=== PATIENT | female | born 1940 | race Caucasian/White ===

== ENCOUNTER 2018-09-26 10:15 | Emergency (ER) | payer MEDICARE ==
--- NOTE | 2018-09-26 10:39 | ERPHSYRPT ---
- History of Present Illness Time Seen by Provider: 09/26/18 10:25 Source: patient, family Physician History: 78 y/o white female who is diabetic, has chf and copd and presents with soa and cough. sx present for 4 days. pt was not seen by pcp but was called in rx for z pack. pt has 2 more days. pt is not allergic to steroids but they do "make me crazy". room air oxygenation was 88%. pt uses oxygen by nc at night only.pt does not have nebulizer at home but does use advair and albuterol inhalers. Timing/Duration: day(s) (4) Activities at Onset: none Severity of Dyspnea-Max: mild Severity of Dyspnea-Current: mild Possible Cause: occasional episodes Modifying Factors: Improves With: coughing, oxygen Associated Symptoms: cough, wheezing Allergies/Adverse Reactions: No Known Drug Allergies Allergy (Verified 09/26/18 10:55) Home Medications: Albuterol Sulfate Mdi [Proair Hfa MDI] 8.5 gm IH BID 01/18/13 [History] Fenofibrate,Micronized 145 mg* [Tricor 145 MG] 145 mg PO HS 01/18/13 [History ] Metformin HCl 500 mg [Glucophage 500 MG] 500 mg PO HS 01/18/13 [History] Oxy 500 + Calcium 1 tab PO BID 01/18/13 [History] Fluticasone/Salmeterol [Advair 250-50 Diskus] 1 each IH BID 06/04/14 [History] Escitalopram Oxalate 10 mg [Lexapro 10 MG] 20 mg PO HS 10/11/14 [History] Lorazepam 1 mg [Ativan 1 MG] 1 mg PO BID 10/11/14 [History] Aspirin [Children's Aspirin] 81 mg PO HS 11/24/14 [History] Azithromycin 250 mg [Zithromax 250 MG TABLET] 250 mg PO ZPACK 09/26/18 [ History] Etodolac [Lodine] 200 mg PO BID 09/26/18 [History] Hx Tetanus, Diphtheria Vaccination/Date Given: Yes (unk) Hx Influenza Vaccination/Date Given: Yes Hx Pneumococcal Vaccination/Date Given: Yes - Review of Systems Constitutional: No Symptoms Eyes: No Symptoms Ears, Nose, & Throat: No Symptoms Respiratory: Cough, Dyspnea, Wheezing, No Stridor Cardiac: No Symptoms, No Chest Pain, No Palpitations, No Syncope Abdominal/Gastrointestinal: No Symptoms, No Abdominal Pain, No Nausea, No Vomiting, No Diarrhea Genitourinary Symptoms: No Symptoms Musculoskeletal: No Symptoms Skin: No Symptoms Neurological: No Symptoms Psychological: No Symptoms Endocrine: No Symptoms Hematologic/Lymphatic: No Symptoms Immunological/Allergic: No Symptoms All Other Systems: Reviewed and Negative - Past Medical History Pertinent Past Medical History: Yes Neurological History: No Pertinent History ENT History: No Pertinent History Cardiac History: Congestive Heart Failure, High Cholesterol, Hypertension Respiratory History: COPD, Other Endocrine Medical History: Diabetes Type I Musculoskeletal History: No Pertinent History, Osteoporosis GI Medical History: No Pertinent History History: No Pertinent History Psycho-Social History: No Pertinent History Female Reproductive Disorders: No Pertinent History Other Medical History: cpap - Past Surgical History Past Surgical History: Yes (11/08/14) Neuro Surgical History: No Pertinent History Cardiac: No Pertinent History Respiratory: No Pertinent History Gastrointestinal: No Pertinent History Genitourinary: No Pertinent History Musculoskeletal: Joint Replacement Female Surgical History: Hysterectomy Other Surgical History: BILAT KNEE REPLACEMENTSRT FOOT PLATE 2010 and 2011 - Social History Smoking Status: Never smoker Exposure to second hand smoke: No Drug Use: none Patient Lives Alone: Yes - Nursing Vital Signs Nursing Vital Signs: Initial Vital Signs Temperature 97.9 F 09/26/18 10:32 Pulse Rate 110 H 09/26/18 10:32 Respiratory Rate 22 09/26/18 10:32 Blood Pressure 158/109 09/26/18 10:32 O2 Sat by Pulse Oximetry 88 L 09/26/18 10:32 Pain Scale Pain Intensity 2 - Physical Exam General Appearance: mild distress, alert, anxiety Eye Exam: PERRL/EOMI Ears, Nose, Throat Exam: hearing grossly normal Neck Exam: normal inspection, non-tender, supple, full range of motion Respiratory Exam: respiratory distress (mild), airway intact, wheezing, No chest tenderness, No accessory muscle use, No rhonchi, No stridor Cardiovascular/Chest Exam: normal heart sounds, regular rate/rhythm Abdominal/Gastrointestinal Exam: soft, normal bowel sounds, No tenderness, No guarding, No rebound Rectal Exam: not done Extremity Exam: non-tender, normal range of motion, normal inspection Neurologic Exam: alert, oriented x 3, cooperative, sap sd analyst II-XII nml as tested Skin Exam: normal color, warm, dry Lymphatic Exam: No adenopathy SpO2 Interpretation: hypoxic Oxygen Delivery: Room Air - Course Nursing assessment & vital signs reviewed: Yes Ordered Tests: Active Orders 24 hr Category Date Time Status Pulse Oximetry (ED) STAT Care 09/26/18 10:41 Active CHEST 1 VIEW (PORTABLE) Stat Exams 09/26/18 10:41 Taken HUMERUS Stat Exams 09/26/18 11:10 Taken Peak Expiratory Flow Rate ONCE RT 09/26/18 10:41 Completed Respiratory Nebulizer STAT RT 09/26/18 10:43 Completed Respiratory Therapy Assessment DAILY RT 09/26/18 10:50 Completed Medication Summary Discontinued Medications Generic Name Dose Route Start Last Admin Trade Name Freq PRN Reason Stop Dose Admin Albuterol Sulfate 2.5 mg 09/26/18 10:41 09/26/18 10:49 Proventil 2.5 Mg/3 Ml Neb IH 09/26/18 10:42 2.5 mg STAT ONE Administration Albuterol Sulfate Confirm 09/26/18 10:47 Proventil 2.5 Mg/3 Ml Neb Administered 09/26/18 10:48 Dose 2.5 mg IH .STK-MED ONE Albuterol/Ipratropium Confirm 09/26/18 10:41 Duoneb 0.5-3 Mg/3 Ml Neb Administered 09/26/18 10:42 Dose 3 ml IH .STK-MED ONE Ceftriaxone Sodium 1,000 mg 09/26/18 10:44 09/26/18 11:02 Rocephin 1000 Mg Inj IM 09/26/18 10:45 1,000 mg STAT ONE Administration Ceftriaxone Sodium Confirm 09/26/18 10:52 Rocephin 1000 Mg Inj Administered 09/26/18 10:53 Dose 1,000 mg .ROUTE .STK-MED ONE Methylprednisolone Sodium Succinate 125 mg 09/26/18 10:41 09/26/18 10:51 Solu-Medrol 125 Mg IM 09/26/18 10:42 125 mg STAT ONE Administration Methylprednisolone Sodium Succinate Confirm 09/26/18 10:44 Solu-Medrol 125 Mg Administered 09/26/18 10:45 Dose 125 mg .ROUTE .STK-MED ONE Lab/Rad Data: Laboratory Results 09/26/18 Range/Units 11:00 Influenza Type A Ag NEGATIVE (NEGATIVE) Influenza Type B Ag NEGATIVE (NEGATIVE) RSV (PCR) NEGATIVE (Negative) - Progress Progress: improved, re-examined Air Movement: good Progress Note: 09/26/18 11:51 cxr-mild bilat bronchopneumonia with mild right basilar atelectasis 09/26/18 11:56 xray right humerus-negative for acute fx or dislocation Blood Culture(s) Obtained: No Antibiotics given: Yes Counseled pt/family regarding: diagnosis, need for follow-up, rad results - Departure Time of Disposition: 11:53 Departure Disposition: Home Clinical Impression: Lung infiltrate Condition: Stable Critical Care Time: No Referrals: BING MURPHY MD [Primary Care Provider] - Additional Instructions: drink plenty of fluids. use your albuterol inhaler every 4 hours while awake. take other medications as prescribed. return to ED if symptoms worsen. follow up with primary doctor for persistent symptoms Prescriptions: Hydrocodone Bit/Acetaminophen [Hydrocodone-Acetaminophen Soln] 10 ml PO Q6H # 120 ml Prednisone 10 mg [Deltasone 10 mg] 10 mg PO BID #10 tablet
[2018-09-26] MEDS ORDERED: solu-MEDROL 125 MG IM ONE (10:41)
[2018-09-26] MEDS ORDERED: DUONEB 0.5-3 MG/3 ml Neb IH ONE (10:41)
[2018-09-26] MEDS ORDERED: PROVENTIL 2.5 MG/3 ML NEB IH ONE ×2 (10:41→10:47)
[2018-09-26] MEDS ORDERED: Rocephin 1000 MG INJ IM ONE (10:44)
[2018-09-26] MEDS ORDERED: solu-MEDROL 125 MG ONE (10:44)
[2018-09-26] MEDS ORDERED: Rocephin 1000 MG INJ ONE (10:52)
[2018-09-26 11:23] VITALS: PULSE 88; O2SAT 93
[2018-09-26 11:49] LABS: INFLUENZA A NEGATIVE (NEGATIVE); INFLUENZA B NEGATIVE (NEGATIVE); RESPIRATORY SYNCTIAL VIRUS NEGATIVE (Negative)
[2018-09-26] MEDS ORDERED: HYDROCODONE-ACETAMIN 2.5-108/5 ML SOLUTION PO STA (12:00)
[2018-09-26] MEDS ORDERED: HYDROCODONE-ACETAMIN 2.5-108/5 ML SOLUTION ONE (12:11)
[2018-09-26 12:16] VITALS: BP 146/85
--- NOTE | 2018-09-26 18:16 | XRAY ---
Indication: Fever, cough, short of breath, and congestion. History COPD. Comparison: November 24, 2014. Portable chest again demonstrates bibasilar discoid atelectasis/scarring increased on the right with stable chronic right hemidiaphragm elevation and medial right base calcified granuloma. Remaining lungs unremarkable. Heart and mediastinal structures within normal limits. Bony thorax intact again with mild osteopenia and degenerative changes. Impression: Nonacute chest with chronic features. Comment: Preliminary interpretation was made by [facility]. No critical discrepancy.
--- NOTE | 2018-09-26 18:18 | XRAY ---
Indication: Pain. Comparison: None 2 views of the right humerus demonstrates mild/moderate shoulder degenerative arthropathy. No other bony, articular, or soft tissue abnormalities.
== END 2018-09-26 12:28 | disposition home or self-care (01) ==
LOC: ED 10:15
DX: R91.8 Other nonspecific abnormal finding of lung field (principal); M79.621 Pain in right upper arm; R09.02 Hypoxemia; J44.9 Chronic obstructive pulmonary disease, unspecified; E10.9 Type 1 diabetes mellitus without complications; Z79.84 Long term (current) use of oral hypoglycemic drugs; I10 Essential (primary) hypertension; Z79.899 Other long term (current) drug therapy
CPT/HCPCS: 71045; 73060; 87631; 94150; 94640; 96372; 99284; J0696; J2930; J7609; A9270-GY

== ENCOUNTER 2019-02-03 13:56 | Observation (INO) | payer MEDICARE ==
[2019-02-03] MEDS ORDERED: Sodium Chloride 0.9% 1000 ML 1,000 ML IV STA (14:29)
[2019-02-03] MEDS ORDERED: Zofran 4 MG/2 ML VIAL IV ONE (14:29)
[2019-02-03] MEDS ORDERED: MORPHINE SULFATE 2 MG INJ IV ONE ×2 (14:29→17:54)
[2019-02-03] MEDS ORDERED: DUONEB 0.5-3 MG/3 ml Neb IH ONE ×2 (14:34→15:09)
--- NOTE | 2019-02-03 14:34 | ERPHSYRPT ---
- History of Present Illness Time Seen by Provider: 02/03/19 14:32 Historian: patient Patient Subjective Stated Complaint: Pt states "Last night I was extremely gassy and today I tried to eat and had diarrhea." Triage Nursing Assessment: Pt presented through the front door alert and oriented X 3, skin pwd. Pt ambulates with a slow gait holding onto the bed for support. Pt in no apparent respiratory distress. PT holding lower abdomen. Physician History: mild to mod off and on lower abdominal cramps, nonrad, no NV, +diarrhea but no blood, no injury Allergies/Adverse Reactions: No Known Drug Allergies Allergy (Verified 09/26/18 10:55) Home Medications: Albuterol Sulfate Mdi [Proair Hfa MDI] 8.5 gm IH BID 01/18/13 [History] Fenofibrate,Micronized 145 mg* [Tricor 145 MG] 145 mg PO HS 01/18/13 [History ] Metformin HCl 500 mg [Glucophage 500 MG] 500 mg PO HS 01/18/13 [History] Oxy 500 + Calcium 1 tab PO BID 01/18/13 [History] Fluticasone/Salmeterol [Advair 250-50 Diskus] 1 each IH BID 06/04/14 [History] Escitalopram Oxalate 10 mg [Lexapro 10 MG] 20 mg PO HS 10/11/14 [History] Lorazepam 1 mg [Ativan 1 MG] 1 mg PO BID 10/11/14 [History] Aspirin [Children's Aspirin] 81 mg PO HS 11/24/14 [History] Etodolac [Lodine] 200 mg PO BID 09/26/18 [History] Hx Tetanus, Diphtheria Vaccination/Date Given: Yes Hx Influenza Vaccination/Date Given: Yes Hx Pneumococcal Vaccination/Date Given: No Immunizations Up to Date: Yes - Review of Systems Constitutional: No Fever Eyes: No Eye Redness Ears, Nose, & Throat: No Mouth Pain Respiratory: No Dyspnea Cardiac: No Chest Pain Abdominal/Gastrointestinal: Abdominal Pain, Diarrhea, No Vomiting Genitourinary Symptoms: No Dysuria Musculoskeletal: No Back Pain Skin: No Rash Neurological: No Dizziness - Past Medical History Pertinent Past Medical History: Yes Neurological History: No Pertinent History ENT History: No Pertinent History Cardiac History: Congestive Heart Failure, High Cholesterol, Hypertension Respiratory History: COPD, Other Endocrine Medical History: Diabetes Type I Musculoskeletal History: No Pertinent History, Osteoporosis GI Medical History: No Pertinent History History: No Pertinent History Psycho-Social History: No Pertinent History Female Reproductive Disorders: No Pertinent History Other Medical History: cpap - Past Surgical History Past Surgical History: Yes (11/08/14) Neuro Surgical History: No Pertinent History Cardiac: No Pertinent History Respiratory: No Pertinent History Gastrointestinal: No Pertinent History Genitourinary: No Pertinent History Musculoskeletal: Joint Replacement Female Surgical History: Hysterectomy Other Surgical History: BILAT KNEE REPLACEMENTSRT FOOT PLATE 2010 and 2011 - Social History Smoking Status: Never smoker Exposure to second hand smoke: Yes Drug Use: none Patient Lives Alone: Yes - Female History Hx Now: No - Nursing Vital Signs Nursing Vital Signs: Initial Vital Signs Temperature 99.6 F 02/03/19 14:12 Pulse Rate 64 02/03/19 14:12 Respiratory Rate 18 02/03/19 14:12 Blood Pressure 188/70 02/03/19 14:12 O2 Sat by Pulse Oximetry 92 L 02/03/19 14:12 Pain Scale Pain Intensity 0 - Physical Exam General Appearance: no apparent distress Eye Exam: eyes nml inspection Ears, Nose, Throat Exam: moist mucous membranes Neck Exam: normal inspection Respiratory Exam: normal breath sounds Cardiovascular Exam: regular rate/rhythm Gastrointestinal/Abdomen Exam: soft, tenderness, No rebound Back Exam: No CVA tenderness Extremity Exam: normal range of motion Neurologic Exam: alert, oriented x 3 Skin Exam: normal color SpO2 Interpretation: borderline oxygenation SpO2: 92 - Course Nursing assessment & vital signs reviewed: Yes EKG Interpreted by Me: Sinus Rhythm, Other (no stemi) - Radiology Exams Chest X-ray Interpretation: Discussed w/ radiologist, No Pneumonia - CT Exams Abdomen/Pelvis CT Interpretation: Discussed w/radiologist, Other (ileus, no obstruction) Ordered Tests: Active Orders 24 hr Category Date Time Status EKG-ER Only STAT Care 02/03/19 14:29 Active IV Insertion STAT Care 02/03/19 14:29 Active ABDOMEN AND PELVIS W/0 CONTRAS [CT] Stat Exams 02/03/19 14:30 Completed CHEST 1 VIEW (PORTABLE) Stat Exams 02/03/19 14:35 Completed CBC W DIFF Stat Lab 02/03/19 14:45 Completed CMP Stat Lab 02/03/19 14:45 Completed CULTURE,URINE Stat Lab 02/03/19 16:50 Received LIPASE Stat Lab 02/03/19 14:45 Completed Lactic Acid Stat Lab 02/03/19 14:58 Completed TROPONIN Q3H Lab 02/03/19 14:45 Completed TROPONIN Q3H Lab 02/03/19 17:30 Ordered TROPONIN Q3H Lab 02/03/19 20:30 Ordered TROPONIN Q3H Lab 02/03/19 23:30 Ordered TROPONIN Q3H Lab 02/04/19 02:30 Ordered UA W/RFX UR CULTURE Stat Lab 02/03/19 16:50 Completed Respiratory Therapy Assessment DAILY RT 02/04/19 07:00 Active Medication Summary Discontinued Medications Generic Name Dose Route Start Last Admin Trade Name Freq PRN Reason Stop Dose Admin Albuterol/Ipratropium 3 ml 02/03/19 14:34 02/03/19 15:10 Duoneb 0.5-3 Mg/3 Ml Neb IH 02/03/19 14:35 3 ml STAT ONE Administration Albuterol/Ipratropium Confirm 02/03/19 15:09 Duoneb 0.5-3 Mg/3 Ml Neb Administered 02/03/19 15:10 Dose 3 ml IH .STK-MED ONE Sodium Chloride 1,000 mls @ 999 mls/hr 02/03/19 14:29 02/03/19 17:17 Sodium Chloride 0.9% 1000 Ml IV 02/03/19 15:29 Infused .Q1H1M STA Infusion Sodium Chloride Confirm 02/03/19 14:51 Sodium Chloride 0.9% 1000 Ml Administered 02/03/19 14:52 Dose 1,000 mls @ ud .ROUTE .STK-MED ONE Morphine Sulfate 2 mg 02/03/19 14:29 02/03/19 14:55 Morphine Sulfate 2 Mg Inj IV 02/03/19 14:30 2 mg STAT ONE Administration Morphine Sulfate Confirm 02/03/19 14:51 Morphine Sulfate 2 Mg Inj Administered 02/03/19 14:52 Dose 2 mg .ROUTE .STK-MED ONE Ondansetron HCl 4 mg 02/03/19 14:29 02/03/19 14:56 Zofran 4 Mg/2 Ml Vial IV 02/03/19 14:30 4 mg STAT ONE Administration Ondansetron HCl Confirm 02/03/19 14:50 Zofran 4 Mg/2 Ml Vial Administered 02/03/19 14:51 Dose 4 mg .ROUTE .STK-MED ONE Lab/Rad Data: Laboratory Result Diagrams 02/03/19 14:45 02/03/19 14:45 Laboratory Results 02/03/19 02/03/19 02/03/19 Range/Units 16:50 14:58 14:45 WBC (4.0-10.5) K/mm3 RBC (4.1-5.4) M/mm3 Hgb (12.0-16.0) gm/dl Hct (35-47) % MCV (78-100) fl MCH (26-32) pg MCHC (32-36) g/dl RDW (11.5-14.0) % Plt Count (150-450) K/mm3 MPV (6-9.5) fl Gran % (36.0-66.0) % Eos # (Auto) (0-0.5) Absolute Lymphs (auto) (1.0-4.6) Absolute Monos (auto) (0.0-1.3) Lymphocytes % (24.0-44.0) % Monocytes % (0.0-12.0) % Eosinophils % (0.00-5.0) % Basophils % (0.0-0.4) % Absolute Granulocytes (1.4-6.9) Basophils # (0-0.4) Sodium (137-145) mmol/L Potassium (3.5-5.1) mmol/L Chloride (98-107) mmol/L Carbon Dioxide (22-30) mmol/L Anion Gap (5-15) MEQ/L BUN (7-17) mg/dL Creatinine (0.52-1.04) mg/dL Estimated GFR ML/MIN Glucose (74-106) mg/dL Lactic Acid 1.4 (0.4-2.0) Calcium (8.4-10.2) mg/dL Total Bilirubin (0.2-1.3) mg/dL AST (14-36) U/L ALT (0-35) U/L Alkaline Phosphatase (38-126) U/L Troponin I < 0.012 (0.000-0.034) ng/mL Serum Total Protein (6.3-8.2) g/dL Albumin (3.5-5.0) g/dL Lipase (23-300) U/L Urine Color YELLOW (YELLOW) Urine Appearance CLEAR (CLEAR) Urine pH 5.0 (5-6) Ur Specific [place] 1.017 (1.005-1.025) Urine Protein NEGATIVE (Negative) Urine Ketones NEGATIVE (NEGATIVE) Urine Blood NEGATIVE (0-5) Abhi/ul Urine Nitrite NEGATIVE (NEGATIVE) Urine Bilirubin NEGATIVE (NEGATIVE) Urine Urobilinogen 2 (0-1) mg/dL Ur Leukocyte Esterase NEGATIVE (NEGATIVE) Urine WBC (Auto) NONE (0-5) /HPF Urine RBC (Auto) NONE (0-2) /HPF U Epithel Cells (Auto) NONE (FEW) /HPF Urine Bacteria (Auto) NONE (NEGATIVE) /HPF Urine Mucus (Auto) SLIGHT (NEGATIVE) /HPF Urine Culture Reflexed ORDERED SEPARATELY (NO) Urine Glucose NEGATIVE (NEGATIVE) mg/dL 02/03/19 02/03/19 Range/Units 14:45 14:45 WBC 8.2 (4.0-10.5) K/mm3 RBC 4.74 (4.1-5.4) M/mm3 Hgb 14.0 (12.0-16.0) gm/dl Hct 44.5 (35-47) % MCV 93.9 (78-100) fl MCH 29.5 (26-32) pg MCHC 31.5 L (32-36) g/dl RDW 14.2 H (11.5-14.0) % Plt Count 280 (150-450) K/mm3 MPV 10.6 H (6-9.5) fl Gran % 75.4 H (36.0-66.0) % Eos # (Auto) 0.29 (0-0.5) Absolute Lymphs (auto) 0.98 L (1.0-4.6) Absolute Monos (auto) 0.69 (0.0-1.3) Lymphocytes % 12.0 L (24.0-44.0) % Monocytes % 8.4 (0.0-12.0) % Eosinophils % 3.5 (0.00-5.0) % Basophils % 0.7 (0.0-0.4) % Absolute Granulocytes 6.15 (1.4-6.9) Basophils # 0.06 (0-0.4) Sodium 141 (137-145) mmol/L Potassium 3.8 (3.5-5.1) mmol/L Chloride 104 (98-107) mmol/L Carbon Dioxide 28 (22-30) mmol/L Anion Gap 13.4 (5-15) MEQ/L BUN 15 (7-17) mg/dL Creatinine 0.82 (0.52-1.04) mg/dL Estimated GFR > 60.0 ML/MIN Glucose 113 H (74-106) mg/dL Lactic Acid (0.4-2.0) Calcium 9.8 (8.4-10.2) mg/dL Total Bilirubin 0.60 (0.2-1.3) mg/dL AST 28 (14-36) U/L ALT 13 (0-35) U/L Alkaline Phosphatase 74 (38-126) U/L Troponin I (0.000-0.034) ng/mL Serum Total Protein 7.9 (6.3-8.2) g/dL Albumin 4.2 (3.5-5.0) g/dL Lipase 79 (23-300) U/L Urine Color (YELLOW) Urine Appearance (CLEAR) Urine pH (5-6) Ur Specific [place] (1.005-1.025) Urine Protein (Negative) Urine Ketones (NEGATIVE) Urine Blood (0-5) Abhi/ul Urine Nitrite (NEGATIVE) Urine Bilirubin (NEGATIVE) Urine Urobilinogen (0-1) mg/dL Ur Leukocyte Esterase (NEGATIVE) Urine WBC (Auto) (0-5) /HPF Urine RBC (Auto) (0-2) /HPF U Epithel Cells (Auto) (FEW) /HPF Urine Bacteria (Auto) (NEGATIVE) /HPF Urine Mucus (Auto) (NEGATIVE) /HPF Urine Culture Reflexed (NO) Urine Glucose (NEGATIVE) mg/dL - Progress Progress: improved Progress Note: 02/03/19 17:44 admit d/w Dr Murphy - Departure Departure Disposition: Observation Clinical Impression: Ileus Condition: Stable Critical Care Time: No Referrals: BING MURPHY MD [Primary Care Provider] -
[2019-02-03] MEDS ORDERED: Zofran 4 MG/2 ML VIAL ONE (14:50)
[2019-02-03] MEDS ORDERED: MORPHINE SULFATE 2 MG INJ ONE ×2 (14:51→17:58)
[2019-02-03] MEDS ORDERED: Sodium Chloride 0.9% 1000 ML 1,000 ML ONE (14:51)
[2019-02-03 15:04] LABS: ALBUMIN 4.2 g/dL (3.5-5.0); ALKALINE PHOSPHATASE 74 U/L (38-126); ANION GAP 13.4 MEQ/L (5-15); BASOPHIL % 0.7 % (0.0-0.4); BLOOD UREA NITROGEN 15 mg/dL (7-17); Basophil (Absolute #) 0.06 (0-0.4); CHLORIDE 104 mmol/L (98-107); Calcium 9.8 mg/dL (8.4-10.2); Carbon Dioxide 28 mmol/L (22-30); Creatinine 1 0.82 mg/dL (0.52-1.04); Eosinophil % 3.5 % (0.00-5.0); Eosinophil (Absolute #) 0.29 (0-0.5); Glucose 113 mg/dL (74-106); Granulocyte Absolute (ANC) 6.15 (1.4-6.9); Granulocytes % 75.4 % (36.0-66.0); Hematocrit 44.5 % (35-47); LIPASE 79 U/L (23-300); Lymphocyte (Absolute #) 0.98 (1.0-4.6); Mean Cell Volume 93.9 fl (78-100); Mean Corpuscular Hemoglobin 29.5 pg (26-32); Mean Corpuscular Hgb Concent. 31.5 g/dl (32-36); Mean Platelet Volume 10.6 fl (6-9.5); Monocyte (Absolute #) 0.69 (0.0-1.3); Monocytes % 8.4 % (0.0-12.0); Platelet Count 280 K/mm3 (150-450); Potassium 3.8 mmol/L (3.5-5.1); Red Blood Count 4.74 M/mm3 (4.1-5.4); Red Cell Distribution Width 14.2 % (11.5-14.0); SGOT/AST 28 U/L (14-36); SGPT/ALT 13 U/L (0-35); SODIUM 141 mmol/L (137-145); Total Protein 7.9 g/dL (6.3-8.2); White Blood Count 8.2 K/mm3 (4.0-10.5)
--- NOTE | 2019-02-03 15:15 | XRAY ---
Indication: Low oxygenation. Comparison: September 26, 2018. Portable chest again demonstrates bilateral mid to lower lung discoid atelectasis/scarring, right base calcified granulomas, and right hemidiaphragm elevation. Heart is borderline enlarged. Bony thorax intact again with mild osteopenia and degenerative changes. Impression: Nonacute chest with chronic features.
--- NOTE | 2019-02-03 15:18 | XRAY ---
Indication: Lower abdomen/pelvic pain. Multiple contiguous axial images obtained through the abdomen and pelvis without contrast as ordered. Comparison: None Lung bases demonstrates subsegmental atelectasis/scarring, right greater than left. Also right infrahilar and right base calcified granulomas. Heart is borderline enlarged. Small hiatal hernia. Noncontrasted stomach and bowel loops appear nonobstructed. Appendix not seen. Mild air distended colon throughout including rectum. Scattered sigmoid diverticulosis. No free fluid/air. Porcelain gallbladder. Nonobstructing punctate left lower renal calculus. Hepatic/splenic calcified granulomas. Remaining liver, pancreas, spleen, adrenal glands, kidneys, ureters, and bladder appear unremarkable for noncontrast exam. Mild aortoiliac calcifications without AAA. Osseous structures intact with mild degenerative throughout the spine, greatest lower lumbar spine. Moderate right hip degenerative arthropathy. No ventral or inguinal hernias. Impression: 1. Mild diffuse air distended colon without obstruction or fecal stasis. Sigmoid diverticulosis. 2. Porcelain gallbladder. 3. Nonobstructing left renal micro-calculus, small hiatal hernia, and evidence for old granulomatous disease. CT DI 28.13
[2019-02-03 17:14] LABS: Appearance CLEAR (CLEAR); Bilirubin NEGATIVE (NEGATIVE); Blood NEGATIVE Ery/ul (0-5); Glucose NEGATIVE (NEGATIVE); Ketones NEGATIVE (NEGATIVE); Leukocyte Esterase NEGATIVE (NEGATIVE); Mucus SLIGHT /HPF (NEGATIVE); Nitrite NEGATIVE (NEGATIVE); Protein,Urine Dip NEGATIVE (Negative); Specific Gravity 1.017 (1.005-1.025); Urobilinogen 2 mg/dL (0-1)
[2019-02-03] MEDS ORDERED: TYLENOL 325 MG PO PRN (18:18)
[2019-02-03] MEDS ORDERED: PROVENTIL 2.5 MG/3 ML NEB IH PRN (18:18)
[2019-02-03] MEDS: Sodium Chloride 0.9% 1000 ML 1,000 ML IV SCH (20:06)
[2019-02-03] MEDS ORDERED: Tricor 145 MG ONE (20:21)
[2019-02-03] MEDS: Advair Hfa 115/21 Common canister IH SCH (21:44)
[2019-02-03] MEDS: PROVENTIL COMMON CANISTER IH SCH (21:44)
[2019-02-03] MEDS ORDERED: BABY ASPIRIN 81 MG CHEW PO SCH (22:00)
[2019-02-03] MEDS ORDERED: Lexapro 10 MG PO SCH (22:00)
[2019-02-03] MEDS ORDERED: Ativan 1 MG PO SCH (22:00)
[2019-02-03] MEDS ORDERED: Tricor 145 MG PO SCH (22:00)
[2019-02-04] MEDS: Advair Hfa 115/21 Common canister IH SCH (05:39)
[2019-02-04] MEDS: PROVENTIL COMMON CANISTER IH SCH (05:40)
[2019-02-04] MEDS: Sodium Chloride 0.9% 1000 ML 1,000 ML IV SCH (05:59)
[2019-02-04 06:54] LABS: ALBUMIN 3.7 g/dL (3.5-5.0); ALKALINE PHOSPHATASE 53 U/L (38-126); ANION GAP 12.7 MEQ/L (5-15); BLOOD UREA NITROGEN 16 mg/dL (7-17); CHLORIDE 106 mmol/L (98-107); Calcium 9.1 mg/dL (8.4-10.2); Carbon Dioxide 27 mmol/L (22-30); Glucose 121 mg/dL (74-106); SGOT/AST 25 U/L (14-36); SGPT/ALT 11 U/L (0-35); SODIUM 142 mmol/L (137-145)
[2019-02-04 06:57] LABS: BASOPHIL % 0.5 % (0.0-0.4); Basophil (Absolute #) 0.05 (0-0.4); Eosinophil % 1.4 % (0.00-5.0); Eosinophil (Absolute #) 0.14 (0-0.5); Granulocyte Absolute (ANC) 8.33 (1.4-6.9); Granulocytes % 81.2 % (36.0-66.0); Hematocrit 41.9 % (35-47); Lymphocyte (Absolute #) 1.04 (1.0-4.6); Lymphocytes % 10.1 % (24.0-44.0); Mean Cell Volume 96.3 fl (78-100); Mean Corpuscular Hemoglobin 29.9 pg (26-32); Mean Platelet Volume 10.8 fl (6-9.5); Monocytes % 6.8 % (0.0-12.0); Platelet Count 252 K/mm3 (150-450); Red Blood Count 4.35 M/mm3 (4.1-5.4); Red Cell Distribution Width 14.1 % (11.5-14.0); White Blood Count 10.3 K/mm3 (4.0-10.5)
[2019-02-04] MEDS ORDERED: Glucophage 500 MG PO SCH (08:00)
[2019-02-04] MEDS ORDERED: MEDICATION INTERVENTION PO SCH (08:00)
[2019-02-04] MEDS ORDERED: Tricor 145 MG PO SCH (10:00)
[2019-02-04] MEDS ORDERED: ETODOLAC 200 MG PO SCH (10:00)
[2019-02-04] MEDS ORDERED: ALBUTEROL SULFATE MDI IH SCH (10:00)
[2019-02-04] MEDS ORDERED: OXY PO SCH (10:00)
[2019-02-04] MEDS ORDERED: CALCIUM PO SCH (10:00)
[2019-02-04] MEDS ORDERED: Calcium 500MG W/Vit D Tablet PO SCH (10:00)
[2019-02-04] MEDS ORDERED: PROVENTIL COMMON CANISTER IH SCH (11:00)
[2019-02-04 12:14] VITALS: BP 136/64; PULSE 69; O2SAT 93
--- NOTE | 2019-02-04 12:38 | PCM.SSS ---
History of Present Illness - Chief Complaint Chief Complaint: abdominal pain for 1 day History of Present Illness: is a 78 year old female.Pt states "Last night I was extremely gassy and today I tried to eat and had an abdominal pain - Review of Systems Constitutional: No Fever, No Chills Eyes: No Symptoms Ears, Nose, & Throat: No Symptoms Respiratory: No Cough, No Short Of Breath Cardiac: No Chest Pain, No Edema, No Syncope Abdominal/Gastrointestinal: No Abdominal Pain, No Nausea, No Vomiting, No Diarrhea Genitourinary Symptoms: No Dysuria Musculoskeletal: No Back Pain, No Neck Pain Skin: No Rash Neurological: No Dizziness, No Focal Weakness, No Sensory Changes Psychological: No Symptoms Endocrine: No Symptoms Hematologic/Lymphatic: No Symptoms Immunological/Allergic: No Symptoms Medications & Allergies Home Medications: Home Medication List Albuterol Sulfate Mdi [Proair Hfa MDI] 8.5 gm IH BID 01/18/13 [History Confirmed 02/03/19] Fenofibrate,Micronized 145 mg* [Tricor 145 MG] 145 mg PO DAILY 01/18/13 [ History Confirmed 02/04/19] Metformin HCl 500 mg [Glucophage 500 MG] 500 mg PO DAILY 01/18/13 [ History Confirmed 02/03/19] Oxy 500 + Calcium 1 tab PO BID 01/18/13 [History Confirmed 02/03/19] Fluticasone/Salmeterol [Advair 250-50 Diskus] 1 each IH BID 06/04/14 [History Confirmed 02/03/19] Escitalopram Oxalate 10 mg [Lexapro 10 MG] 20 mg PO HS 10/11/14 [History Confirmed 02/03/19] Lorazepam 1 mg [Ativan 1 MG] 1 mg PO HS 10/11/14 [History Confirmed ] Aspirin [Children's Aspirin] 81 mg PO HS 11/24/14 [History Confirmed 02/03/19] Etodolac [Lodine] 200 mg PO DAILY 09/26/18 [History Confirmed 02/03/19] Albuterol Common Canister [Proventil Common Canister] 2 puff IH QID [History Confirmed 02/03/19] Allergies/Adverse Reactions: Allergies Allergy/AdvReac Type Severity Reaction Status Date / Time No Known Drug Allergies Allergy Verified 09/26/18 10:55 - Past Medical History Past Medical History: Yes Neurological History: No Pertinent History ENT History: Cataracts Cardiac History: Congestive Heart Failure, High Cholesterol, Hypertension Respiratory History: COPD, Pneumonia, Sleep Apnea, Other Endocrine Medical History: Diabetes Type I Musculoskelatal History: No Pertinent History, Osteoporosis GI Medical History: No Pertinent History History: No Pertinent History Pyscho-Social History: Anxiety, Depression Reproductive Disorders: No Pertinent History Comment: cpap - Female History Are you now?: No - Past Surgical History Past Surgical History: Yes (11/08/14) Neuro Surgical History: No Pertinent History Cardiac History: No Pertinent History Respiratory Surgery: No Pertinent History GI Surgical History: No Pertinent History Genitourinary Surgical Hx: No Pertinent History Musculskeletal Surgical Hx: Joint Replacement Female Surgical History: Hysterectomy Other Surgical History: BILAT KNEE REPLACEMENTSRT FOOT PLATE 2010 and 2011 - Social History Smoking Status: Never smoker Exposure to second hand smoke: No Alcohol: None Drug Use: none - Physical Exam Vital Signs: Vital Signs - 24 hr Temp Pulse Resp BP Pulse Ox 02/04/19 12:00 97.4 F 69 20 136/64 93 L 02/04/19 11:32 70 18 96 02/04/19 07:51 97 F 65 18 130/90 02/04/19 05:41 63 18 97 02/04/19 04:00 97.5 F 95 H 18 135/65 95 02/04/19 00:00 98.0 F 92 H 20 119/61 91 L 02/03/19 21:45 91 L 02/03/19 21:37 76 18 91 L 02/03/19 20:00 98.4 F 79 18 119/64 91 L 02/03/19 18:38 98.4 F 79 18 119/64 91 L 02/03/19 18:06 76 16 150/80 95 02/03/19 17:45 92 L 02/03/19 17:42 74 16 158/84 98 02/03/19 15:31 74 18 90 L 02/03/19 15:03 99.4 F 75 18 168/88 89 L 02/03/19 14:12 99.6 F 64 18 188/70 92 L Oxygen-Last 24 hours O2 Percentage 2 Liters = 28% Oxygen Flowrate (L/min)-RT 2 General Appearance: no apparent distress, alert Neurologic Exam: alert, oriented x 3, cooperative, normal mood/affect, nml cerebellar function, nml station & gait, sensation nml, No motor deficits Eye Exam: PERRL/EOMI, eyes nml inspection Ears, Nose, Throat Exam: normal ENT inspection, TMs normal, pharynx normal, moist mucous membranes Neck Exam: normal inspection, non-tender, supple, full range of motion Respiratory Exam: normal breath sounds, lungs clear, No respiratory distress Cardiovascular Exam: regular rate/rhythm, normal heart sounds, normal peripheral pulses Gastrointestinal/Abdomen Exam: soft, normal bowel sounds, No tenderness, No mass Back Exam: normal inspection, normal range of motion, No CVA tenderness, No vertebral tenderness Extremity Exam: normal inspection, normal range of motion, pelvis stable Skin Exam: normal color, warm, dry, No rash Lymphatic Exam: No adenopathy Results - Labs Lab/Micro Results: Lab Results-Last 24 Hours 02/03/19 02/03/19 02/03/19 Range/Units 14:45 14:45 14:45 WBC 8.2 (4.0-10.5) K/mm3 RBC 4.74 (4.1-5.4) M/mm3 Hgb 14.0 (12.0-16.0) gm/dl Hct 44.5 (35-47) % MCV 93.9 (78-100) fl MCH 29.5 (26-32) pg MCHC 31.5 L (32-36) g/dl RDW 14.2 H (11.5-14.0) % Plt Count 280 (150-450) K/mm3 MPV 10.6 H (6-9.5) fl Gran % 75.4 H (36.0-66.0) % Eos # (Auto) 0.29 (0-0.5) Absolute Lymphs (auto) 0.98 L (1.0-4.6) Absolute Monos (auto) 0.69 (0.0-1.3) Lymphocytes % 12.0 L (24.0-44.0) % Monocytes % 8.4 (0.0-12.0) % Eosinophils % 3.5 (0.00-5.0) % Basophils % 0.7 (0.0-0.4) % Absolute Granulocytes 6.15 (1.4-6.9) Basophils # 0.06 (0-0.4) Sodium 141 (137-145) mmol/L Potassium 3.8 (3.5-5.1) mmol/L Chloride 104 (98-107) mmol/L Carbon Dioxide 28 (22-30) mmol/L Anion Gap 13.4 (5-15) MEQ/L BUN 15 (7-17) mg/dL Creatinine 0.82 (0.52-1.04) mg/dL Estimated GFR > 60.0 ML/MIN Glucose 113 H (74-106) mg/dL Lactic Acid (0.4-2.0) Calcium 9.8 (8.4-10.2) mg/dL Total Bilirubin 0.60 (0.2-1.3) mg/dL AST 28 (14-36) U/L ALT 13 (0-35) U/L Alkaline Phosphatase 74 (38-126) U/L Troponin I < 0.012 (0.000-0.034) ng/mL Serum Total Protein 7.9 (6.3-8.2) g/dL Albumin 4.2 (3.5-5.0) g/dL Lipase 79 (23-300) U/L Urine Color (YELLOW) Urine Appearance (CLEAR) Urine pH (5-6) Ur Specific [place] (1.005-1.025) Urine Protein (Negative) Urine Ketones (NEGATIVE) Urine Blood (0-5) Abhi/ul Urine Nitrite (NEGATIVE) Urine Bilirubin (NEGATIVE) Urine Urobilinogen (0-1) mg/dL Ur Leukocyte Esterase (NEGATIVE) Urine WBC (Auto) (0-5) /HPF Urine RBC (Auto) (0-2) /HPF U Epithel Cells (Auto) (FEW) /HPF Urine Bacteria (Auto) (NEGATIVE) /HPF Urine Mucus (Auto) (NEGATIVE) /HPF Urine Culture Reflexed (NO) Urine Glucose (NEGATIVE) mg/dL 02/03/19 02/03/19 02/04/19 Range/Units 14:58 16:50 03:26 WBC (4.0-10.5) K/mm3 RBC (4.1-5.4) M/mm3 Hgb (12.0-16.0) gm/dl Hct (35-47) % MCV (78-100) fl MCH (26-32) pg MCHC (32-36) g/dl RDW (11.5-14.0) % Plt Count (150-450) K/mm3 MPV (6-9.5) fl Gran % (36.0-66.0) % Eos # (Auto) (0-0.5) Absolute Lymphs (auto) (1.0-4.6) Absolute Monos (auto) (0.0-1.3) Lymphocytes % (24.0-44.0) % Monocytes % (0.0-12.0) % Eosinophils % (0.00-5.0) % Basophils % (0.0-0.4) % Absolute Granulocytes (1.4-6.9) Basophils # (0-0.4) Sodium (137-145) mmol/L Potassium (3.5-5.1) mmol/L Chloride (98-107) mmol/L Carbon Dioxide (22-30) mmol/L Anion Gap (5-15) MEQ/L BUN (7-17) mg/dL Creatinine (0.52-1.04) mg/dL Estimated GFR ML/MIN Glucose (74-106) mg/dL Lactic Acid 1.4 (0.4-2.0) Calcium (8.4-10.2) mg/dL Total Bilirubin (0.2-1.3) mg/dL AST (14-36) U/L ALT (0-35) U/L Alkaline Phosphatase (38-126) U/L Troponin I 0.015 (0.000-0.034) ng/mL Serum Total Protein (6.3-8.2) g/dL Albumin (3.5-5.0) g/dL Lipase (23-300) U/L Urine Color YELLOW (YELLOW) Urine Appearance CLEAR (CLEAR) Urine pH 5.0 (5-6) Ur Specific [place] 1.017 (1.005-1.025) Urine Protein NEGATIVE (Negative) Urine Ketones NEGATIVE (NEGATIVE) Urine Blood NEGATIVE (0-5) Abhi/ul Urine Nitrite NEGATIVE (NEGATIVE) Urine Bilirubin NEGATIVE (NEGATIVE) Urine Urobilinogen 2 (0-1) mg/dL Ur Leukocyte Esterase NEGATIVE (NEGATIVE) Urine WBC (Auto) NONE (0-5) /HPF Urine RBC (Auto) NONE (0-2) /HPF U Epithel Cells (Auto) NONE (FEW) /HPF Urine Bacteria (Auto) NONE (NEGATIVE) /HPF Urine Mucus (Auto) SLIGHT (NEGATIVE) /HPF Urine Culture Reflexed ORDERED SEPARATELY (NO) Urine Glucose NEGATIVE (NEGATIVE) mg/dL 02/04/19 02/04/19 Range/Units 05:45 05:45 WBC 10.3 (4.0-10.5) K/mm3 RBC 4.35 (4.1-5.4) M/mm3 Hgb 13.0 (12.0-16.0) gm/dl Hct 41.9 (35-47) % MCV 96.3 (78-100) fl MCH 29.9 (26-32) pg MCHC 31.0 L (32-36) g/dl RDW 14.1 H (11.5-14.0) % Plt Count 252 (150-450) K/mm3 MPV 10.8 H (6-9.5) fl Gran % 81.2 H (36.0-66.0) % Eos # (Auto) 0.14 (0-0.5) Absolute Lymphs (auto) 1.04 (1.0-4.6) Absolute Monos (auto) 0.70 (0.0-1.3) Lymphocytes % 10.1 L (24.0-44.0) % Monocytes % 6.8 (0.0-12.0) % Eosinophils % 1.4 (0.00-5.0) % Basophils % 0.5 (0.0-0.4) % Absolute Granulocytes 8.33 H (1.4-6.9) Basophils # 0.05 (0-0.4) Sodium 142 (137-145) mmol/L Potassium 4.0 (3.5-5.1) mmol/L Chloride 106 (98-107) mmol/L Carbon Dioxide 27 (22-30) mmol/L Anion Gap 12.7 (5-15) MEQ/L BUN 16 (7-17) mg/dL Creatinine 0.80 (0.52-1.04) mg/dL Estimated GFR > 60.0 ML/MIN Glucose 121 H (74-106) mg/dL Lactic Acid (0.4-2.0) Calcium 9.1 (8.4-10.2) mg/dL Total Bilirubin 0.70 (0.2-1.3) mg/dL AST 25 (14-36) U/L ALT 11 (0-35) U/L Alkaline Phosphatase 53 (38-126) U/L Troponin I (0.000-0.034) ng/mL Serum Total Protein 7.0 (6.3-8.2) g/dL Albumin 3.7 (3.5-5.0) g/dL Lipase (23-300) U/L Urine Color (YELLOW) Urine Appearance (CLEAR) Urine pH (5-6) Ur Specific [place] (1.005-1.025) Urine Protein (Negative) Urine Ketones (NEGATIVE) Urine Blood (0-5) Abhi/ul Urine Nitrite (NEGATIVE) Urine Bilirubin (NEGATIVE) Urine Urobilinogen (0-1) mg/dL Ur Leukocyte Esterase (NEGATIVE) Urine WBC (Auto) (0-5) /HPF Urine RBC (Auto) (0-2) /HPF U Epithel Cells (Auto) (FEW) /HPF Urine Bacteria (Auto) (NEGATIVE) /HPF Urine Mucus (Auto) (NEGATIVE) /HPF Urine Culture Reflexed (NO) Urine Glucose (NEGATIVE) mg/dL Microbiology 02/03/19 16:50 Urine Culture - Preliminary Clean Catch Midstream GRAM NEGATIVE ID AND SENSITIVITY PENDING - Radiology Impressions Radiology Exams & Impressions: Radiology Procedures Category Date Time Status ABDOMEN AND PELVIS W/0 CONTRAS [CT] Stat Exams 02/03/19 14:30 Completed CHEST 1 VIEW (PORTABLE) Stat Exams 02/03/19 14:35 Completed - Other Procedures and Tests Respiratory Therapy 02/03/19 18:18 Oxygen Nasal Cannula 2 lpm 02/03/19 20:40 Respiratory Therapy Assessment DAILY 02/04/19 05:46 BiPap/CPAP ROUTINE Assessment/Plan (1) Ileus Status: Acute Assessment & Plan: Chief Complaint Diagnosis ileus Allergies Allergy/AdvReac Type Severity Reaction Status Date / Time No Known Drug Allergies Allergy Verified 09/26/18 10:55 Vital Signs (Last 24 hours) Temp Pulse Resp BP Pulse Ox 02/04/19 12:00 97.4 F 69 20 136/64 93 L 02/04/19 11:32 70 18 96 02/04/19 07:51 97 F 65 18 130/90 02/04/19 05:41 63 18 97 05/17/19 04:00 97.5 F 95 H 18 135/65 95 02/04/19 00:00 98.0 F 92 H 20 119/61 91 L 02/03/19 21:45 91 L 02/03/19 21:37 76 18 91 L 02/03/19 20:00 98.4 F 79 18 119/64 91 L 02/03/19 18:38 98.4 F 79 18 119/64 91 L 02/03/19 18:06 76 16 150/80 95 02/03/19 17:45 92 L 02/03/19 17:42 74 16 158/84 98 02/03/19 15:31 74 18 90 L 02/03/19 15:03 99.4 F 75 18 168/88 89 L 02/03/19 14:12 99.6 F 64 18 188/70 92 L Home Medications Medication Instructions Recorded Confirmed Last Taken Type Albuterol Common Canister 2 puff IH QID 02/03/19 02/03/19 02/03/19 History [Proventil Common Canister] Current Medications Generic Name Dose Route Start Last Admin Trade Name Freq PRN Reason Stop Dose Admin Acetaminophen 650 mg 02/03/19 18:18 Tylenol 325 Mg PO 03/05/19 18:17 Q4H PRN PRN PAIN AND/OR FEVER Albuterol Sulfate 2.5 mg 02/03/19 18:18 Proventil 2.5 Mg/3 Ml Neb IH 03/05/19 18:17 Q4H PRN PRN SHORTNESS OF BREATH/WHEEZING Albuterol Sulfate 2 puff 02/04/19 11:00 02/04/19 11:25 Proventil Common Canister IH 03/05/19 20:29 2 puff QIDRT MAHESH Administration Aspirin 81 mg 02/04/19 22:00 Ecotrin 81 Mg PO 03/06/19 21:59 HS MAHESH Calcium Carbonate 1 tab 02/04/19 10:00 02/04/19 10:36 Calcium 500mg W/Vit D Tablet PO 03/06/19 09:59 1 tab BID MAHESH Administration Escitalopram Oxalate 20 mg 02/03/19 22:00 02/03/19 21:43 Lexapro 10 Mg PO 03/05/19 21:59 20 mg HS MAHESH Administration Fenofibrate 145 mg 02/04/19 10:00 02/04/19 10:36 Tricor 145 Mg PO 03/06/19 09:59 145 mg DAILY MAEHSH Administration Sodium Chloride 1,000 mls @ 100 mls/hr 02/03/19 18:18 02/04/19 05:59 Sodium Chloride 0.9% 1000 Ml IV 03/05/19 18:17 100 mls/hr .Q10H MAHESH Administration Lorazepam 1 mg 02/03/19 22:00 02/03/19 21:43 Ativan 1 Mg PO 03/05/19 21:59 1 mg HS MAHESH Administration Metformin HCl 500 mg 02/04/19 08:00 02/04/19 08:14 Glucophage 500 Mg PO 03/06/19 07:59 Not Given BREAKFAST MAHESH Miscellaneous Information 1 each 02/04/19 08:00 Medication Intervention PO 03/06/19 07:59 .RN TO CHECK ON MAHESH Fluticasone/Salmeterol 2 puff 02/04/19 07:00 02/04/19 05:39 Advair Hfa 115/21 Common Canister* IH 03/06/19 06:59 2 puff BIDRT MAHESH Administration Discontinued Medications Generic Name Dose Route Start Last Admin Trade Name Freq PRN Reason Stop Dose Admin Albuterol Sulfate 2 puff 02/03/19 20:30 02/04/19 05:40 Proventil Common Canister IH 03/05/19 20:29 2 puff QID MAHESH Administration Albuterol/Ipratropium 3 ml 02/03/19 14:34 02/03/19 15:10 Duoneb 0.5-3 Mg/3 Ml Neb IH 02/03/19 14:35 3 ml STAT ONE Administration Albuterol/Ipratropium Confirm 02/03/19 15:09 Duoneb 0.5-3 Mg/3 Ml Neb Administered 02/03/19 15:10 Dose 3 ml IH .STK-MED ONE Aspirin 81 mg 02/03/19 22:00 02/03/19 21:46 Baby Aspirin 81 Mg Chew PO 03/05/19 21:59 81 mg HS MAHESH Administration Fenofibrate 145 mg 02/03/19 22:00 02/03/19 21:46 Tricor 145 Mg PO 03/05/19 21:59 Not Given HS MAHESH Fenofibrate Confirm 02/03/19 20:21 Tricor 145 Mg Administered 02/03/19 20:22 Dose 145 mg .ROUTE .STK-MED ONE Sodium Chloride 1,000 mls @ 999 mls/hr 02/03/19 14:29 02/03/19 17:17 Sodium Chloride 0.9% 1000 Ml IV 02/03/19 15:29 Infused .Q1H1M STA Infusion Sodium Chloride Confirm 02/03/19 14:51 Sodium Chloride 0.9% 1000 Ml Administered 02/03/19 14:52 Dose 1,000 mls @ ud .ROUTE .STK-MED ONE Morphine Sulfate 2 mg 02/03/19 14:29 02/03/19 14:55 Morphine Sulfate 2 Mg Inj IV 02/03/19 14:30 2 mg STAT ONE Administration Morphine Sulfate Confirm 02/03/19 14:51 Morphine Sulfate 2 Mg Inj Administered 02/03/19 14:52 Dose 2 mg .ROUTE .STK-MED ONE Morphine Sulfate 2 mg 02/03/19 17:54 02/03/19 17:59 Morphine Sulfate 2 Mg Inj IV 02/03/19 17:55 2 mg STAT ONE Administration Morphine Sulfate Confirm 02/03/19 17:58 Morphine Sulfate 2 Mg Inj Administered 02/03/19 17:59 Dose 2 mg .ROUTE .STK-MED ONE Ondansetron HCl 4 mg 02/03/19 14:29 02/03/19 14:56 Zofran 4 Mg/2 Ml Vial IV 02/03/19 14:30 4 mg STAT ONE Administration Ondansetron HCl Confirm 02/03/19 14:50 Zofran 4 Mg/2 Ml Vial Administered 02/03/19 14:51 Dose 4 mg .ROUTE .STK-MED ONE Intake & Output (Last 24 hours) 02/02/19 02/03/19 02/04/19 02/05/19 11:59 11:59 11:59 11:59 Intake Total 595 Output Total 50 Balance 545 Weight 113.4 kg Microbiology Results (Last 24 hours) 02/03/19 16:50 Clean Catch Midstream Urine Culture - Preliminary GRAM NEGATIVE ID AND SENSITIVITY PENDING Laboratory Results (Last 24 hours) 02/04/19 02/04/19 02/04/19 05:45 05:45 03:26 WBC 10.3 RBC 4.35 Hgb 13.0 Hct 41.9 MCV 96.3 MCH 29.9 MCHC 31.0 L RDW 14.1 H Plt Count 252 MPV 10.8 H Gran % 81.2 H Eos # (Auto) 0.14 Absolute Lymphs (auto) 1.04 Absolute Monos (auto) 0.70 Lymphocytes % 10.1 L Monocytes % 6.8 Eosinophils % 1.4 Basophils % 0.5 Absolute Granulocytes 8.33 H Basophils # 0.05 Sodium 142 Potassium 4.0 Chloride 106 Carbon Dioxide 27 Anion Gap 12.7 BUN 16 Creatinine 0.80 Estimated GFR > 60.0 Glucose 121 H Lactic Acid Calcium 9.1 Total Bilirubin 0.70 AST 25 ALT 11 Alkaline Phosphatase 53 Troponin I 0.015 Serum Total Protein 7.0 Albumin 3.7 Lipase Urine Color Urine Appearance Urine pH Ur Specific [place] Urine Protein Urine Ketones Urine Blood Urine Nitrite Urine Bilirubin Urine Urobilinogen Ur Leukocyte Esterase Urine WBC (Auto) Urine RBC (Auto) U Epithel Cells (Auto) Urine Bacteria (Auto) Urine Mucus (Auto) Urine Culture Reflexed Urine Glucose 02/03/19 02/03/19 02/03/19 16:50 14:58 14:45 WBC RBC Hgb Hct MCV MCH MCHC RDW Plt Count MPV Gran % Eos # (Auto) Absolute Lymphs (auto) Absolute Monos (auto) Lymphocytes % Monocytes % Eosinophils % Basophils % Absolute Granulocytes Basophils # Sodium Potassium Chloride Carbon Dioxide Anion Gap BUN Creatinine Estimated GFR Glucose Lactic Acid 1.4 Calcium Total Bilirubin AST ALT Alkaline Phosphatase Troponin I < 0.012 Serum Total Protein Albumin Lipase Urine Color YELLOW Urine Appearance CLEAR Urine pH 5.0 Ur Specific [place] 1.017 Urine Protein NEGATIVE Urine Ketones NEGATIVE Urine Blood NEGATIVE Urine Nitrite NEGATIVE Urine Bilirubin NEGATIVE Urine Urobilinogen 2 Ur Leukocyte Esterase NEGATIVE Urine WBC (Auto) NONE Urine RBC (Auto) NONE U Epithel Cells (Auto) NONE Urine Bacteria (Auto) NONE Urine Mucus (Auto) SLIGHT Urine Culture Reflexed ORDERED SEPARATELY Urine Glucose NEGATIVE 02/03/19 02/03/19 14:45 14:45 WBC 8.2 RBC 4.74 Hgb 14.0 Hct 44.5 MCV 93.9 MCH 29.5 MCHC 31.5 L RDW 14.2 H Plt Count 280 MPV 10.6 H Gran % 75.4 H Eos # (Auto) 0.29 Absolute Lymphs (auto) 0.98 L Absolute Monos (auto) 0.69 Lymphocytes % 12.0 L Monocytes % 8.4 Eosinophils % 3.5 Basophils % 0.7 Absolute Granulocytes 6.15 Basophils # 0.06 Sodium 141 Potassium 3.8 Chloride 104 Carbon Dioxide 28 Anion Gap 13.4 BUN 15 Creatinine 0.82 Estimated GFR > 60.0 Glucose 113 H Lactic Acid Calcium 9.8 Total Bilirubin 0.60 AST 28 ALT 13 Alkaline Phosphatase 74 Troponin I Serum Total Protein 7.9 Albumin 4.2 Lipase 79 Urine Color Urine Appearance Urine pH Ur Specific [place] Urine Protein Urine Ketones Urine Blood Urine Nitrite Urine Bilirubin Urine Urobilinogen Ur Leukocyte Esterase Urine WBC (Auto) Urine RBC (Auto) U Epithel Cells (Auto) Urine Bacteria (Auto) Urine Mucus (Auto) Urine Culture Reflexed Urine Glucose Orders (Last 24 hours) Category Date Time Status Bedrest ROUTINE Activity 02/03/19 18:18 Active Call Admit Doctor for Orders ON ADMISSION Care 02/03/19 18:18 Active Code Status Order ROUTINE Care 02/03/19 18:18 Active EKG-ER Only STAT Care 02/03/19 14:29 Completed IV Care Q6H Care 02/03/19 18:18 Active IV Insertion STAT Care 02/03/19 14:[address] in Observation ROUTINE Care 02/03/19 18:18 Active Cardio-Pulmonary Rehab .as ordered Cons 02/03/19 18:30 Active 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 Cons 02/03/19 19:26 Active Clear Liquid Diet 02/04/19 Breakfast Completed NPO Diet 02/03/19 18:19 Completed Nutritional Admission Screen Diet 02/03/19 19:26 Completed Regular Diet Diet 02/04/19 Lunch Active ABDOMEN AND PELVIS W/0 CONTRAS [CT] Stat Exams 02/03/19 14:30 Completed CHEST 1 VIEW (PORTABLE) Stat Exams 02/03/19 14:35 Completed CBC W DIFF AM.LAB Lab 02/04/19 05:45 Completed CBC W DIFF Stat Lab 02/03/19 14:45 Completed CMP AM.LAB Lab 02/04/19 05:45 Completed CMP Stat Lab 02/03/19 14:45 Completed CULTURE,URINE Stat Lab 02/03/19 16:50 Results LIPASE Stat Lab 02/03/19 14:45 Completed Lactic Acid Stat Lab 02/03/19 14:58 Completed TROPONIN Q3H Lab 02/03/19 14:45 Completed TROPONIN Q3H Lab 02/04/19 03:26 Completed UA W/RFX UR CULTURE Stat Lab 02/03/19 16:50 Completed Acetaminophen 325 mg [Tylenol 325 mg] Med 02/03/19 18:18 Active 650 mg PO Q4H PRN PRN Albuterol 2.5 mg/3 ml Neb [Proventil 2.5 mg/3 ml Neb Med 02/03/19 18:18 Active ] 2.5 mg IH Q4H PRN PRN Albuterol Common Canister [Proventil Common Canister Med 02/03/19 20:30 Discontinued ] 2 puff IH QID Albuterol Common Canister [Proventil Common Canister Med 02/04/19 11:00 Active ] 2 puff IH QIDRT Albuterol/Ipratropium 3ml Neb* [DUONEB 0.5-3 MG/3 ml Med 02/03/19 15:09 Discontinued Neb] 3 ml IH .STK-MED ONE Albuterol/Ipratropium 3ml Neb* [DUONEB 0.5-3 MG/3 ml Med 02/03/19 14:34 Discontinued Neb] 3 ml IH STAT ONE Aspirin 81 gm Chew [Baby Aspirin 81 mg Chew] Med 02/03/19 22:00 Discontinued 81 mg PO HS Aspirin EC 81 mg [Ecotrin 81 mg] Med 02/04/19 22:00 Active 81 mg PO HS Calcium Carb/Vitamin D 500 mg* [Calcium 500MG W/Vit D Med 02/04/19 10:00 Active Tablet] 1 tab PO BID Escitalopram Oxalate 10 mg [Lexapro 10 MG] Med 02/03/19 22:00 Active 20 mg PO HS Fenofibrate,Micronized 145 mg* [Tricor 145 MG] Med 02/03/19 20:21 Discontinued 145 mg .ROUTE .STK-MED ONE Fenofibrate,Micronized 145 mg* [Tricor 145 MG] Med 02/04/19 10:00 Active 145 mg PO DAILY Fenofibrate,Micronized 145 mg* [Tricor 145 MG] Med 02/03/19 22:00 Discontinued 145 mg PO HS Fluticasone/Salmeterol 115/21 [Advair Hfa 115/21 Common Med 02/04/19 07:00 Active canister*] 2 puff IH BIDRT Lorazepam 1 mg [Ativan 1 MG] Med 02/03/19 22:00 Active 1 mg PO HS Medication Intervention Med 02/04/19 08:00 Active 1 each PO .RN TO CHECK ON Metformin HCl 500 mg [Glucophage 500 MG] Med 02/04/19 08:00 Active 500 mg PO BREAKFAST Morphine Sulfate 2 mg Inj Med 02/03/19 14:51 Discontinued 2 mg .ROUTE .STK-MED ONE Morphine Sulfate 2 mg Inj Med 02/03/19 17:58 Discontinued 2 mg .ROUTE .STK-MED ONE Morphine Sulfate 2 mg Inj Med 02/03/19 14:29 Discontinued 2 mg IV STAT ONE Morphine Sulfate 2 mg Inj Med 02/03/19 17:54 Discontinued 2 mg IV STAT ONE NaCl 0.9% 1000 ml [Sodium Chloride 0.9% 1000 ML] 1,000 Med 02/03/19 14:51 Discontinued ml .ROUTE UD NaCl 0.9% 1000 ml [Sodium Chloride 0.9% 1000 ML] 1,000 Med 02/03/19 18:18 Active ml IV 100 mls/hr NaCl 0.9% 1000 ml [Sodium Chloride 0.9% 1000 ML] 1,000 Med 02/03/19 14:29 Discontinued ml IV 999 mls/hr Ondansetron HCl 4 mg/2 ml [Zofran 4 MG/2 ML VIAL] Med 02/03/19 14:50 Discontinued 4 mg .ROUTE .STK-MED ONE Ondansetron HCl 4 mg/2 ml [Zofran 4 MG/2 ML VIAL] Med 02/03/19 14:29 Discontinued 4 mg IV STAT ONE BiPap/CPAP ROUTINE RT 02/04/19 05:46 Active Oxygen Nasal Cannula 2 lpm RT 02/03/19 18:18 Active Pulse Oximetry .spot check RT 02/03/19 20:41 Active RT Screen per Nursing Assess ONCE RT 02/03/19 19:26 Completed Respiratory MDI BID RT 02/03/19 20:34 Completed Respiratory MDI QID RT 02/03/19 20:30 Completed Respiratory Therapy Assessment DAILY RT 02/03/19 20:40 Active Respiratory Therapy Assessment DAILY RT 02/04/19 07:00 Completed Code(s): K56.7 - ILEUS, UNSPECIFIED Hospital Summary - Hospital Course Hospital Course: Last Vital Signs Temp 97.4 F 02/04/19 12:00 Pulse 69 02/04/19 12:00 Resp 20 02/04/19 12:00 BP 136/64 02/04/19 12:00 Pulse Ox 93 L 02/04/19 12:00 Allergies No Known Drug Allergies Allergy (Verified 09/26/18 10:55) Active Medications Acetaminophen (Tylenol 325 Mg) 650 mg PO Q4H PRN PRN PRN Reason: PAIN AND/OR FEVER Stop: 03/05/19 18:17 Albuterol Sulfate (Proventil 2.5 Mg/3 Ml Neb) 2.5 mg IH Q4H PRN PRN PRN Reason: SHORTNESS OF BREATH/WHEEZING Stop: 03/05/19 18:17 Albuterol Sulfate (Proventil Common Canister) 2 puff IH QIDRT COUNTS INCLUDE 234 BEDS AT THE [facility] Stop: 03/05/19 20:29 Last Admin: 02/04/19 11:25 Dose: 2 puff Aspirin (Ecotrin 81 Mg) 81 mg PO HS COUNTS INCLUDE 234 BEDS AT THE [facility] Stop: 03/06/19 21:59 Calcium Carbonate (Calcium 500mg W/Vit D Tablet) 1 tab PO BID COUNTS INCLUDE 234 BEDS AT THE [facility] Stop: 03/06/19 09:59 Last Admin: 02/04/19 10:36 Dose: 1 tab Escitalopram Oxalate (Lexapro 10 Mg) 20 mg PO HS COUNTS INCLUDE 234 BEDS AT THE [facility] Stop: 03/05/19 21:59 Last Admin: 02/03/19 21:43 Dose: 20 mg Fenofibrate (Tricor 145 Mg) 145 mg PO DAILY COUNTS INCLUDE 234 BEDS AT THE [facility] Stop: 03/06/19 09:59 Last Admin: 02/04/19 10:36 Dose: 145 mg Sodium Chloride (Sodium Chloride 0.9% 1000 Ml) 1,000 mls @ 100 mls/hr IV .Q10H COUNTS INCLUDE 234 BEDS AT THE [facility] Stop: 03/05/19 18:17 Last Admin: 02/04/19 05:59 Dose: 100 mls/hr Lorazepam (Ativan 1 Mg) 1 mg PO HS MAHESH Stop: 03/05/19 21:59 Last Admin: 02/03/19 21:43 Dose: 1 mg Metformin HCl (Glucophage 500 Mg) 500 mg PO BREAKFAST COUNTS INCLUDE 234 BEDS AT THE [facility] Stop: 03/06/19 07:59 Last Admin: 02/04/19 08:14 Dose: Not Given Miscellaneous Information (Medication Intervention) 1 each PO .RN TO CHECK ON MAHESH Stop: 03/06/19 07:59 Fluticasone/Salmeterol (Advair Hfa 115/21 Common Canister*) 2 puff IH BIDRT COUNTS INCLUDE 234 BEDS AT THE [facility] Stop: 03/06/19 06:59 Last Admin: 02/04/19 05:39 Dose: 2 puff Intake & Output 02/04/19 02/05/19 11:59 11:59 Intake Total 595 Output Total 50 Balance 545 Weight 113.4 kg Orders 02/03/19 18:30 Cardio-Pulmonary Rehab .as ordered 02/03/19 19:26 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 02/03/19 20:40 Respiratory Therapy Assessment DAILY 02/03/19 20:41 Pulse Oximetry .spot check 02/03/19 22:00 Escitalopram Oxalate 10 mg [Lexapro 10 MG] 20 mg PO HS Lorazepam 1 mg [Ativan 1 MG] 1 mg PO 02/04/19 05:46 BiPap/CPAP ROUTINE 02/04/19 07:00 Fluticasone/Salmeterol 115/21 [Advair Hfa 115/21 Common canister*] 2 puff IH BIDRT 02/04/19 08:00 Medication Intervention 1 each PO .RN TO CHECK ON Metformin HCl 500 mg [Glucophage 500 MG] 500 mg PO BREAKFAST 02/04/19 10:00 Calcium Carb/Vitamin D 500 mg* [Calcium 500MG W/Vit D Tablet] 1 tab PO BID Fenofibrate,Micronized 145 mg* [Tricor 145 MG] 145 mg PO DAILY 02/04/19 11:00 Albuterol Common Canister [Proventil Common Canister] 2 puff IH QIDRT 02/04/19 22:00 Aspirin EC 81 mg [Ecotrin 81 mg] 81 mg PO HS 02/04/19 Lunch Regular Diet Lab Tests 02/03/19 02/03/19 02/03/19 14:45 14:45 14:45 WBC 8.2 RBC 4.74 Hgb 14.0 Hct 44.5 MCV 93.9 MCH 29.5 MCHC 31.5 L RDW 14.2 H Plt Count 280 MPV 10.6 H Gran % 75.4 H Eos # (Auto) 0.29 Absolute Lymphs (auto) 0.98 L Absolute Monos (auto) 0.69 Lymphocytes % 12.0 L Monocytes % 8.4 Eosinophils % 3.5 Basophils % 0.7 Absolute Granulocytes 6.15 Basophils # 0.06 Sodium 141 Potassium 3.8 Chloride 104 Carbon Dioxide 28 Anion Gap 13.4 BUN 15 Creatinine 0.82 Estimated GFR > 60.0 Glucose 113 H Lactic Acid Calcium 9.8 Total Bilirubin 0.60 AST 28 ALT 13 Alkaline Phosphatase 74 Troponin I < 0.012 Serum Total Protein 7.9 Albumin 4.2 Lipase 79 Urine Color Urine Appearance Urine pH Ur Specific [place] Urine Protein Urine Ketones Urine Blood Urine Nitrite Urine Bilirubin Urine Urobilinogen Ur Leukocyte Esterase Urine WBC (Auto) Urine RBC (Auto) U Epithel Cells (Auto) Urine Bacteria (Auto) Urine Mucus (Auto) Urine Culture Reflexed Urine Glucose 02/03/19 02/03/19 02/04/19 14:58 16:50 03:26 WBC RBC Hgb Hct MCV MCH MCHC RDW Plt Count MPV Gran % Eos # (Auto) Absolute Lymphs (auto) Absolute Monos (auto) Lymphocytes % Monocytes % Eosinophils % Basophils % Absolute Granulocytes Basophils # Sodium Potassium Chloride Carbon Dioxide Anion Gap BUN Creatinine Estimated GFR Glucose Lactic Acid 1.4 Calcium Total Bilirubin AST ALT Alkaline Phosphatase Troponin I 0.015 Serum Total Protein Albumin Lipase Urine Color YELLOW Urine Appearance CLEAR Urine pH 5.0 Ur Specific [place] 1.017 Urine Protein NEGATIVE Urine Ketones NEGATIVE Urine Blood NEGATIVE Urine Nitrite NEGATIVE Urine Bilirubin NEGATIVE Urine Urobilinogen 2 Ur Leukocyte Esterase NEGATIVE Urine WBC (Auto) NONE Urine RBC (Auto) NONE U Epithel Cells (Auto) NONE Urine Bacteria (Auto) NONE Urine Mucus (Auto) SLIGHT Urine Culture Reflexed ORDERED SEPARATELY Urine Glucose NEGATIVE 02/04/19 02/04/19 05:45 05:45 WBC 10.3 RBC 4.35 Hgb 13.0 Hct 41.9 MCV 96.3 MCH 29.9 MCHC 31.0 L RDW 14.1 H Plt Count 252 MPV 10.8 H Gran % 81.2 H Eos # (Auto) 0.14 Absolute Lymphs (auto) 1.04 Absolute Monos (auto) 0.70 Lymphocytes % 10.1 L Monocytes % 6.8 Eosinophils % 1.4 Basophils % 0.5 Absolute Granulocytes 8.33 H Basophils # 0.05 Sodium 142 Potassium 4.0 Chloride 106 Carbon Dioxide 27 Anion Gap 12.7 BUN 16 Creatinine 0.80 Estimated GFR > 60.0 Glucose 121 H Lactic Acid Calcium 9.1 Total Bilirubin 0.70 AST 25 ALT 11 Alkaline Phosphatase 53 Troponin I Serum Total Protein 7.0 Albumin 3.7 Lipase Urine Color Urine Appearance Urine pH Ur Specific [place] Urine Protein Urine Ketones Urine Blood Urine Nitrite Urine Bilirubin Urine Urobilinogen Ur Leukocyte Esterase Urine WBC (Auto) Urine RBC (Auto) U Epithel Cells (Auto) Urine Bacteria (Auto) Urine Mucus (Auto) Urine Culture Reflexed Urine Glucose Microbiology 02/03/19 16:50 Clean Catch Midstream Urine Culture - Preliminary GRAM NEGATIVE ID AND SENSITIVITY PENDING - Vitals & Intake/Output Vital Signs: Vital Signs Temperature 97.4 F 02/04/19 12:00 Pulse Rate 69 02/04/19 12:00 Respiratory Rate 20 02/04/19 12:00 Blood Pressure 136/64 02/04/19 12:00 O2 Sat by Pulse Oximetry 93 L 02/04/19 12:00 Oxygen-Last Documented O2 Percentage 2 Liters = 28% Intake & Output: Intake & Output 02/02/19 02/03/19 02/04/19 02/05/19 11:59 11:59 11:59 11:59 Intake Total 595 Output Total 50 Balance 545 Weight 113.4 kg - Lab Result Diagrams: 02/04/19 05:45 02/04/19 05:45 Lab Results-Last 24 Hrs: Lab Results-Last 24 Hours 02/03/19 02/03/19 02/03/19 Range/Units 14:45 14:45 14:45 WBC 8.2 (4.0-10.5) K/mm3 RBC 4.74 (4.1-5.4) M/mm3 Hgb 14.0 (12.0-16.0) gm/dl Hct 44.5 (35-47) % MCV 93.9 (78-100) fl MCH 29.5 (26-32) pg MCHC 31.5 L (32-36) g/dl RDW 14.2 H (11.5-14.0) % Plt Count 280 (150-450) K/mm3 MPV 10.6 H (6-9.5) fl Gran % 75.4 H (36.0-66.0) % Eos # (Auto) 0.29 (0-0.5) Absolute Lymphs (auto) 0.98 L (1.0-4.6) Absolute Monos (auto) 0.69 (0.0-1.3) Lymphocytes % 12.0 L (24.0-44.0) % Monocytes % 8.4 (0.0-12.0) % Eosinophils % 3.5 (0.00-5.0) % Basophils % 0.7 (0.0-0.4) % Absolute Granulocytes 6.15 (1.4-6.9) Basophils # 0.06 (0-0.4) Sodium 141 (137-145) mmol/L Potassium 3.8 (3.5-5.1) mmol/L Chloride 104 (98-107) mmol/L Carbon Dioxide 28 (22-30) mmol/L Anion Gap 13.4 (5-15) MEQ/L BUN 15 (7-17) mg/dL Creatinine 0.82 (0.52-1.04) mg/dL Estimated GFR > 60.0 ML/MIN Glucose 113 H (74-106) mg/dL Lactic Acid (0.4-2.0) Calcium 9.8 (8.4-10.2) mg/dL Total Bilirubin 0.60 (0.2-1.3) mg/dL AST 28 (14-36) U/L ALT 13 (0-35) U/L Alkaline Phosphatase 74 (38-126) U/L Troponin I < 0.012 (0.000-0.034) ng/mL Serum Total Protein 7.9 (6.3-8.2) g/dL Albumin 4.2 (3.5-5.0) g/dL Lipase 79 (23-300) U/L Urine Color (YELLOW) Urine Appearance (CLEAR) Urine pH (5-6) Ur Specific [place] (1.005-1.025) Urine Protein (Negative) Urine Ketones (NEGATIVE) Urine Blood (0-5) Abhi/ul Urine Nitrite (NEGATIVE) Urine Bilirubin (NEGATIVE) Urine Urobilinogen (0-1) mg/dL Ur Leukocyte Esterase (NEGATIVE) Urine WBC (Auto) (0-5) /HPF Urine RBC (Auto) (0-2) /HPF U Epithel Cells (Auto) (FEW) /HPF Urine Bacteria (Auto) (NEGATIVE) /HPF Urine Mucus (Auto) (NEGATIVE) /HPF Urine Culture Reflexed (NO) Urine Glucose (NEGATIVE) mg/dL 02/03/19 02/03/19 02/04/19 Range/Units 14:58 16:50 03:26 WBC (4.0-10.5) K/mm3 RBC (4.1-5.4) M/mm3 Hgb (12.0-16.0) gm/dl Hct (35-47) % MCV (78-100) fl MCH (26-32) pg MCHC (32-36) g/dl RDW (11.5-14.0) % Plt Count (150-450) K/mm3 MPV (6-9.5) fl Gran % (36.0-66.0) % Eos # (Auto) (0-0.5) Absolute Lymphs (auto) (1.0-4.6) Absolute Monos (auto) (0.0-1.3) Lymphocytes % (24.0-44.0) % Monocytes % (0.0-12.0) % Eosinophils % (0.00-5.0) % Basophils % (0.0-0.4) % Absolute Granulocytes (1.4-6.9) Basophils # (0-0.4) Sodium (137-145) mmol/L Potassium (3.5-5.1) mmol/L Chloride (98-107) mmol/L Carbon Dioxide (22-30) mmol/L Anion Gap (5-15) MEQ/L BUN (7-17) mg/dL Creatinine (0.52-1.04) mg/dL Estimated GFR ML/MIN Glucose (74-106) mg/dL Lactic Acid 1.4 (0.4-2.0) Calcium (8.4-10.2) mg/dL Total Bilirubin (0.2-1.3) mg/dL AST (14-36) U/L ALT (0-35) U/L Alkaline Phosphatase (38-126) U/L Troponin I 0.015 (0.000-0.034) ng/mL Serum Total Protein (6.3-8.2) g/dL Albumin (3.5-5.0) g/dL Lipase (23-300) U/L Urine Color YELLOW (YELLOW) Urine Appearance CLEAR (CLEAR) Urine pH 5.0 (5-6) Ur Specific [place] 1.017 (1.005-1.025) Urine Protein NEGATIVE (Negative) Urine Ketones NEGATIVE (NEGATIVE) Urine Blood NEGATIVE (0-5) Abhi/ul Urine Nitrite NEGATIVE (NEGATIVE) Urine Bilirubin NEGATIVE (NEGATIVE) Urine Urobilinogen 2 (0-1) mg/dL Ur Leukocyte Esterase NEGATIVE (NEGATIVE) Urine WBC (Auto) NONE (0-5) /HPF Urine RBC (Auto) NONE (0-2) /HPF U Epithel Cells (Auto) NONE (FEW) /HPF Urine Bacteria (Auto) NONE (NEGATIVE) /HPF Urine Mucus (Auto) SLIGHT (NEGATIVE) /HPF Urine Culture Reflexed ORDERED SEPARATELY (NO) Urine Glucose NEGATIVE (NEGATIVE) mg/dL 02/04/19 02/04/19 Range/Units 05:45 05:45 WBC 10.3 (4.0-10.5) K/mm3 RBC 4.35 (4.1-5.4) M/mm3 Hgb 13.0 (12.0-16.0) gm/dl Hct 41.9 (35-47) % MCV 96.3 (78-100) fl MCH 29.9 (26-32) pg MCHC 31.0 L (32-36) g/dl RDW 14.1 H (11.5-14.0) % Plt Count 252 (150-450) K/mm3 MPV 10.8 H (6-9.5) fl Gran % 81.2 H (36.0-66.0) % Eos # (Auto) 0.14 (0-0.5) Absolute Lymphs (auto) 1.04 (1.0-4.6) Absolute Monos (auto) 0.70 (0.0-1.3) Lymphocytes % 10.1 L (24.0-44.0) % Monocytes % 6.8 (0.0-12.0) % Eosinophils % 1.4 (0.00-5.0) % Basophils % 0.5 (0.0-0.4) % Absolute Granulocytes 8.33 H (1.4-6.9) Basophils # 0.05 (0-0.4) Sodium 142 (137-145) mmol/L Potassium 4.0 (3.5-5.1) mmol/L Chloride 106 (98-107) mmol/L Carbon Dioxide 27 (22-30) mmol/L Anion Gap 12.7 (5-15) MEQ/L BUN 16 (7-17) mg/dL Creatinine 0.80 (0.52-1.04) mg/dL Estimated GFR > 60.0 ML/MIN Glucose 121 H (74-106) mg/dL Lactic Acid (0.4-2.0) Calcium 9.1 (8.4-10.2) mg/dL Total Bilirubin 0.70 (0.2-1.3) mg/dL AST 25 (14-36) U/L ALT 11 (0-35) U/L Alkaline Phosphatase 53 (38-126) U/L Troponin I (0.000-0.034) ng/mL Serum Total Protein 7.0 (6.3-8.2) g/dL Albumin 3.7 (3.5-5.0) g/dL Lipase (23-300) U/L Urine Color (YELLOW) Urine Appearance (CLEAR) Urine pH (5-6) Ur Specific [place] (1.005-1.025) Urine Protein (Negative) Urine Ketones (NEGATIVE) Urine Blood (0-5) Abhi/ul Urine Nitrite (NEGATIVE) Urine Bilirubin (NEGATIVE) Urine Urobilinogen (0-1) mg/dL Ur Leukocyte Esterase (NEGATIVE) Urine WBC (Auto) (0-5) /HPF Urine RBC (Auto) (0-2) /HPF U Epithel Cells (Auto) (FEW) /HPF Urine Bacteria (Auto) (NEGATIVE) /HPF Urine Mucus (Auto) (NEGATIVE) /HPF Urine Culture Reflexed (NO) Urine Glucose (NEGATIVE) mg/dL Micro Results-Entire Visit: Microbiology 02/03/19 16:50 Urine Culture - Preliminary Clean Catch Midstream GRAM NEGATIVE ID AND SENSITIVITY PENDING - Radiology Exams Ordered Rad Exams-Entire Visit: Radiology Procedures Category Date Time Status ABDOMEN AND PELVIS W/0 CONTRAS [CT] Stat Exams 02/03/19 14:30 Completed CHEST 1 VIEW (PORTABLE) Stat Exams 02/03/19 14:35 Completed - Procedures and Test Procedures and Tests throughout Hospitalization: Therapy Orders & Screens 02/03/19 18:18 Oxygen Nasal Cannula 2 lpm Comment: 02/03/19 19:26 RT Screen per Nursing Assess ONCE Comment: Protocol Order Physician Instructions: Greater than 3 points order RT Admission Screen Reason For Exam: Triggered on Admission Diagnosis: ileus Diagnosis: ileus Pneumonia: No Home O2: Yes Asthma: No CHF: Yes Home CPAP/BIPAP: Yes Home Nebs/MDI: Yes Total Points: 18 02/03/19 20:30 Respiratory MDI QID Comment: Diagnosis: ileus 02/03/19 20:34 Respiratory MDI BID Comment: Diagnosis: ileus 02/03/19 20:40 Respiratory Therapy Assessment DAILY Comment: Diagnosis: ileus 02/04/19 05:46 BiPap/CPAP ROUTINE Comment: Diagnosis: ileus 02/04/19 07:00 Respiratory Therapy Assessment DAILY Comment: - Discharge Discharge Date: 02/04/19 Disposition: Home, Self-Care Condition: Stable Prescriptions: Continue Metformin HCl 500 mg [Glucophage 500 MG] 500 mg PO DAILY Albuterol Sulfate Mdi [Proair Hfa MDI] 8.5 gm IH BID Fenofibrate,Micronized 145 mg* [Tricor 145 MG] 145 mg PO DAILY Oxy 500 + Calcium 1 tab PO BID Fluticasone/Salmeterol [Advair 250-50 Diskus] 1 each IH BID Lorazepam 1 mg [Ativan 1 MG] 1 mg PO HS Escitalopram Oxalate 10 mg [Lexapro 10 MG] 20 mg PO HS Aspirin [Children's Aspirin] 81 mg PO HS Etodolac [Lodine] 200 mg PO DAILY Albuterol Common Canister [Proventil Common Canister] 2 puff IH QID Instructions: Acute Abdomen (Belly Pain), Adult (DC) Follow up with: KATHERINE,BING, MD [Primary Care Provider] - 02/10/19 2:30 pm Forms: Discharge Instructions
[2019-02-04] MEDS ORDERED: ECOTRIN 81 MG PO SCH (22:00)
== END 2019-02-04 14:00 | disposition home or self-care (01) ==
LOC: ED 13:56 → MED SURG 18:18
PROVIDERS: ADMIT General Practice; ATTEND General Practice
DX: K56.7 Ileus, unspecified (principal); E10.9 Type 1 diabetes mellitus without complications; I10 Essential (primary) hypertension; E78.00 Pure hypercholesterolemia, unspecified; G47.30 Sleep apnea, unspecified; Z79.84 Long term (current) use of oral hypoglycemic drugs; Z79.899 Other long term (current) drug therapy
CPT/HCPCS: 36000; 36415; 71045; 74176; 80053; 81001; 83605; 83690; 84484; 85025; 87077; 87086; 87186; 93005; 94640; 94660; 94760; 96360; 96374; 96375; 96376; 99285; G0378; J2270; J2405; A9270-GY

== ENCOUNTER 2021-05-08 10:13 | Observation (INO) | payer MEDICARE ==
--- NOTE | 2021-05-08 11:03 | ERPHSYRPT ---
- History of Present Illness Time Seen by Provider: 05/08/21 10:30 Source: patient Exam Limitations: no limitations Patient Subjective Stated Complaint: patient states she is having cough and sore throat starting thursday. states she is coughing white sputum. States she is h aving a slight fever at home, unknown temperature. States "eyes were burning and head is hot". Triage Nursing Assessment: Patient to ED with complaints of cough and sore throa t. dry cough at this time. Lungs clear throughout varghese. Physician History: Patient is a 81-year-old female presents to our ED with her daughter for evaluation of a cough and sore throat. Patient also advises that she has been experiencing subjective fever. Symptoms started approximately 3 days ago. Symptoms have been constant. Patient states she feels a little better today. Patient called her primary care doctor who advised patient come to our ED for an evaluation. Patient states her chest wall and abdomen are both sore due to the persistent coughing. No coughing observed while in our ED. Patient advises that she has a history of COPD. She uses 4 L of oxygen at nighttime only. Patient hypertensive on cafeteria monitor. She is currently not taking any blood pressure medications. However she will follow-up with her primary care doctor to reassess her blood pressure. No nausea or vomiting. No diarrhea. No rash. Symptoms are mild to moderate in intensity. No specific worsening improving factors. Patient voices no other complaints concerns at this time. Timing/Duration: day(s) (3 days ago) Activities at Onset: none Severity of Dyspnea-Max: mild Severity of Dyspnea-Current: none Possible Cause: unknown cause Modifying Factors: Improves With: nothing Associated Symptoms: chest pain/discomfort, No ankle swelling, No leg swelling Allergies/Adverse Reactions: No Known Drug Allergies Allergy (Verified 05/08/21 10:34) Home Medications: Fenofibrate,Micronized 145 mg* [Tricor 145 MG] 145 mg PO DAILY 01/18/13 [History] Metformin HCl 500 mg [Glucophage 500 MG] 500 mg PO EVENING MEAL 01/18/13 [History] Fluticasone/Salmeterol [Advair 250-50 Diskus] 1 each IH BID 06/04/14 [History] Escitalopram Oxalate 10 mg [Lexapro 10 MG] 20 mg PO DAILY 10/11/14 [History] Lorazepam 1 mg [Ativan 1 MG] 1 mg PO HS 10/11/14 [History] Aspirin [Children's Aspirin] 81 mg PO HS 11/24/14 [History] Etodolac [Lodine] 200 mg PO BID 09/26/18 [History] Albuterol Common Canister [Ventolin Common Canister] 2 puff IH Q4H PRN PRN 02/03/19 [History] Calcium Carbonate/Vitamin D3 [Calcium 500 + Vit D 200 Tablet] 1 each PO BID 05/08/21 [History] Vit C/E/Zn/Coppr/Lutein/Zeaxan [Preservision Areds 2 Softgel] 1 cap PO BID 05/08/21 [History] Hx Tetanus, Diphtheria Vaccination/Date Given: Yes Hx Influenza Vaccination/Date Given: Yes Hx Pneumococcal Vaccination/Date Given: No Immunizations Up to Date: Yes Travel Risk - International Travel Have you traveled outside of the country in past 3 weeks: No - Coronavirus Screening Symptoms: Fever, Cough: New Onset, Shortness of Breath, Headaches/Body Aches/Fatigue Close contact with a COVID-19 positive Pt in past 14-21 Days: No - Vaccine Status Have you recieved a Covid-19 vaccination: Yes Cement Loader: Moderna - Vaccination Dates Date of 2cond Vaccination (if applicable): 11/15/20 - Review of Systems Constitutional: No Symptoms, No Fever, No Chills Eyes: No Symptoms Ears, Nose, & Throat: No Symptoms Respiratory: No Symptoms, No Cough, No Dyspnea Cardiac: No Symptoms, No Chest Pain, No Edema, No Syncope Abdominal/Gastrointestinal: No Symptoms, No Abdominal Pain, No Nausea, No Vomiting, No Diarrhea Genitourinary Symptoms: No Symptoms, No Dysuria Musculoskeletal: No Symptoms, No Back Pain, No Neck Pain Skin: No Symptoms, No Rash Neurological: No Symptoms, No Dizziness, No Focal Weakness, No Sensory Changes Psychological: No Symptoms Endocrine: No Symptoms Hematologic/Lymphatic: No Symptoms Immunological/Allergic: No Symptoms All Other Systems: Reviewed and Negative - Past Medical History Pertinent Past Medical History: Yes Neurological History: No Pertinent History ENT History: Cataracts Cardiac History: Congestive Heart Failure, High Cholesterol, Hypertension Respiratory History: COPD, Pneumonia, Sleep Apnea, Other Endocrine Medical History: Diabetes Type I Musculoskeletal History: No Pertinent History, Osteoporosis GI Medical History: No Pertinent History History: No Pertinent History Psycho-Social History: Anxiety, Depression Female Reproductive Disorders: No Pertinent History Other Medical History: cpap - Past Surgical History Past Surgical History: Yes (11/08/14) Neuro Surgical History: No Pertinent History Cardiac: No Pertinent History Respiratory: No Pertinent History Gastrointestinal: No Pertinent History Genitourinary: No Pertinent History Musculoskeletal: Joint Replacement Female Surgical History: Hysterectomy Other Surgical History: BILAT KNEE REPLACEMENTSRT FOOT PLATE 2010 and 2011 - Social History Smoking Status: Never smoker Exposure to second hand smoke: No Drug Use: none Patient Lives Alone: Yes - Female History Hx Now: No - Nursing Vital Signs Nursing Vital Signs: Initial Vital Signs Temperature 97.1 F 05/08/21 10:19 Pulse Rate 67 05/08/21 10:19 Respiratory Rate 26 H 05/08/21 10:19 Blood Pressure 180/79 05/08/21 10:19 O2 Sat by Pulse Oximetry 92 L 05/08/21 10:19 Pain Scale Pain Intensity 0 - Physical Exam General Appearance: no apparent distress, alert Eye Exam: PERRL/EOMI Ears, Nose, Throat Exam: normal ENT inspection (Patient is mildly hard of hearing. There is cerumen in both ears. No impaction) Neck Exam: normal inspection, supple Cardiovascular/Chest Exam: normal heart sounds, regular rate/rhythm Abdominal/Gastrointestinal Exam: soft, No tenderness, No distention, No mass Extremity Exam: non-tender, normal range of motion, normal inspection, no calf tenderness, no pedal edema Peripheral Pulses Exam: dorsalis-pedis (R): 2+, dorsalis-pedis (L): 2+ Neurologic Exam: alert, oriented x 3, cooperative, preventive medicine physician II-XII nml as tested, sensation nml, No motor deficits Skin Exam: normal color, warm, No dry Lymphatic Exam: adenopathy SpO2 Interpretation: normal SpO2: 92 O2 Delivery: Room Air (Patient 94% on room air during my examination.) - Course Nursing assessment & vital signs reviewed: Yes EKG Interpreted by Me: RATE (79, flutter.) - Radiology Exams Chest X-ray Interpretation: Teleradiologist Report (Moderate elevation/eventration of the right hemidiaphragm increased curvilinear discoid density at the right lung base just above the elevated right hemidiaphragm could represent discoid atelectasis however superimposed focal pneumonic infiltrate would be difficult to exclude. Minimal linear scarri) Ordered Tests: Active Orders 24 hr Category Date Time Status Bedrest with BRP/BSC ROUTINE Activity 05/08/21 14:29 Active Engineering Surveyor STAT Care 05/08/21 10:48 Completed Code Status Order ROUTINE Care 05/08/21 14:29 Active EKG-ER Only STAT Care 05/08/21 10:48 Completed IV Care Q6H Care 05/08/21 14:29 Active IV Insertion STAT Care 05/08/21 10:48 Completed Implement Chest Pain Pathway ROUTINE Care 05/08/21 14:[address] in Observation ROUTINE Care 05/08/21 14:29 Active Pulse Oximetry (ED) STAT Care 05/08/21 10:48 Completed Augustus Perez ROUTINE Care 05/08/21 14:29 Active Telemetry q6h Care 05/08/21 14:29 Active Weight,Daily 0600 Care 05/08/21 14:29 Active Consistent Carbohydrate Diet 1800 Calorie Diet 05/08/21 Dinner Active CHEST 1 VIEW (PORTABLE) Stat Exams 05/08/21 10:48 Completed CBC W DIFF Stat Lab 05/08/21 10:50 Completed CMP Stat Lab 05/08/21 10:50 Completed INFLUENZA A+B CALLI Stat Lab 05/08/21 11:12 Completed LIPID PROFILE AM.LAB Lab 05/09/21 04:00 Ordered MAGNESIUM Stat Lab 05/08/21 10:50 Completed TROPONIN Q3H Lab 05/08/21 10:50 Completed TROPONIN Q3H Lab 05/08/21 13:51 Completed TROPONIN Q3H Lab 05/08/21 17:20 Completed TROPONIN Q3H Lab 05/08/21 19:50 Completed TROPONIN Q3H Lab 05/08/21 23:00 Completed Pulse Oximetry .spot check RT 05/08/21 14:29 Active Medication Summary Generic Name Dose Route Start Last Admin Trade Name Freq PRN Reason Stop Dose Admin Acetaminophen 650 mg 05/08/21 14:29 Tylenol 325 Mg PO 06/07/21 14:28 Q4H PRN PRN PAIN AND/OR FEVER Al Hydrox/Mg Hydrox/Simethicone 30 ml 05/08/21 14:29 Maalox Es 30 Ml Unit Dose PO 06/07/21 14:28 Q4H PRN PRN INDIGESTION Albuterol Sulfate 2 puff 05/09/21 07:00 Ventolin Common Canister IH 06/08/21 06:59 QIDRT MAHESH Albuterol Sulfate 2 puff 05/08/21 21:21 Ventolin Common Canister IH 06/07/21 21:20 Q4H PRN PRN SHORTNESS OF BREATH/WHEEZING Aspirin 81 mg 05/08/21 22:00 05/08/21 21:54 Ecotrin 81 Mg PO 06/07/21 21:59 81 mg HS MAHESH Administration Benzonatate 100 mg 05/08/21 22:00 05/08/21 21:54 Tessalon Perles 100 Mg PO 06/07/21 21:59 100 mg QID MAHESH Administration Calcium Carbonate 1 tab 05/08/21 22:00 05/08/21 21:54 Calcium 500mg W/Vit D Tablet PO 06/07/21 21:59 1 tab BID MAHESH Administration Escitalopram Oxalate 20 mg 05/09/21 10:00 Lexapro 10 Mg PO 06/08/21 09:59 DAILY MAHESH Fenofibrate 145 mg 05/09/21 10:00 Tricor 145 Mg PO 06/08/21 09:59 DAILY MAHESH Ceftriaxone Sodium/Dextrose 2 g in 50 mls @ 100 mls/hr 05/09/21 10:00 Rocephin 2 Gm-D5w 50ml Bag IV 05/12/21 09:59 Q24H10 MAHESH Lorazepam 1 mg 05/08/21 22:00 05/08/21 21:54 Ativan 1 Mg PO 06/07/21 21:59 1 mg HS MAHESH Administration Magnesium Hydroxide 30 - 60 ml 05/08/21 14:29 Milk Of Magnesia 30 Ml PO 06/07/21 14:28 QDP PRN CONSTIPATION Metformin HCl 500 mg 05/08/21 18:00 05/08/21 17:55 Glucophage 500 Mg PO 06/07/21 17:59 500 mg EVENING MEAL MAHESH Administration Miscellaneous Information 1 each 05/08/21 17:00 Medication Intervention MC 06/07/21 16:59 .RN TO CHECK MAHESH Multivitamins/Minerals 1 tab 05/08/21 22:00 05/08/21 21:54 Ocuvite Tablet PO 06/07/21 21:59 1 tab BID MAHESH Administration Patient Own Medication 1 each 05/08/21 19:00 05/08/21 19:02 Patient Own Medication 06/07/21 18:59 1 each BIDRT MAHESH Administration Senna/Docusate Sodium 2 udtab 05/08/21 14:29 Senokot-S Tablet PO 06/07/21 14:28 BID PRN PRN CONSTIPATION Discontinued Medications Generic Name Dose Route Start Last Admin Trade Name Freq PRN Reason Stop Dose Admin Albuterol Sulfate 4 puff 05/08/21 19:00 05/08/21 19:02 Ventolin Common Canister IH 06/07/21 18:59 2 puff QIDRT MAHESH Administration Albuterol Sulfate 4 puff 05/08/21 16:00 05/08/21 16:07 Ventolin Common Canister IH 06/07/21 15:59 4 puff Q4H PRN PRN Administration SHORTNESS OF BREATH/WHEEZING Enoxaparin Sodium 100 mg 05/08/21 12:17 05/08/21 12:36 Enoxaparin Sodium SQ 05/08/21 12:18 100 mg ONCE STA Administration Ceftriaxone Sodium/Dextrose 2 g in 50 mls @ 100 mls/hr 05/08/21 12:15 05/08/21 13:19 Rocephin 2 Gm-D5w 50ml Bag IV 05/08/21 12:44 Infused STAT STA Infusion Azithromycin 500 mg in 250 mls @ 250 mls/hr 05/08/21 12:15 05/08/21 13:39 Zithromax 500 Mg/ 250 Ml Nacl Premix IV 05/08/21 13:14 Infused STAT STA Infusion Azithromycin Confirm 05/08/21 12:30 Zithromax 500 Mg/ 250 Ml Nacl Premix Administered 05/08/21 12:31 Dose 500 mg in 250 mls @ ud IV .STK-MED ONE Ceftriaxone Sodium/Dextrose Confirm 05/08/21 12:30 Rocephin 2 Gm-D5w 50ml Bag Administered 05/08/21 12:31 Dose 2 g in 50 mls @ ud IV .STK-MED ONE Lab/Rad Data: Laboratory Result Diagrams 05/08/21 10:50 05/08/21 10:50 Laboratory Results 05/08/21 05/08/21 05/08/21 Range/Units 13:51 12:39 11:12 WBC (4.0-10.5) K/mm3 RBC (4.1-5.4) M/mm3 Hgb (12.0-16.0) gm/dl Hct (35-47) % MCV (78-100) fl MCH (26-32) pg MCHC (32-36) g/dl RDW (11.5-14.0) % Plt Count (150-450) K/mm3 MPV (7.5-11.0) fl Gran % (36.0-66.0) % Eos # (Auto) (0-0.5) Absolute Lymphs (auto) (1.0-4.6) Absolute Monos (auto) (0.0-1.3) Lymphocytes % (24.0-44.0) % Monocytes % (0.0-12.0) % Eosinophils % (0.00-5.0) % Basophils % (0.0-0.4) % Absolute Granulocytes (1.4-6.9) Basophils # (0-0.4) Sodium (137-145) mmol/L Potassium (3.5-5.1) mmol/L Chloride (98-107) mmol/L Carbon Dioxide (22-30) mmol/L Anion Gap (5-15) MEQ/L BUN (7-17) mg/dL Creatinine (0.52-1.04) mg/dL Estimated GFR ML/MIN Glucose (74-106) mg/dL Calcium (8.4-10.2) mg/dL Magnesium (1.6-2.3) mg/dL Total Bilirubin (0.2-1.3) mg/dL AST (14-36) U/L ALT (0-35) U/L Alkaline Phosphatase (38-126) U/L Troponin I < 0.012 (0.000-0.034) ng/mL Serum Total Protein (6.3-8.2) g/dL Albumin (3.5-5.0) g/dL Influenza Type A Ag NEGATIVE (NEGATIVE) Influenza Type B Ag NEGATIVE (NEGATIVE) SARS-CoV-2 (PCR) NEGATIVE (NEGATIVE) 05/08/21 05/08/21 05/08/21 Range/Units 10:50 10:50 10:50 WBC 8.7 (4.0-10.5) K/mm3 RBC 4.56 (4.1-5.4) M/mm3 Hgb 13.6 (12.0-16.0) gm/dl Hct 43.6 (35-47) % MCV 95.6 (78-100) fl MCH 29.8 (26-32) pg MCHC 31.2 L (32-36) g/dl RDW 13.9 (11.5-14.0) % Plt Count 274 (150-450) K/mm3 MPV 11.1 H (7.5-11.0) fl Gran % 72.3 H (36.0-66.0) % Eos # (Auto) 0.26 (0-0.5) Absolute Lymphs (auto) 1.19 (1.0-4.6) Absolute Monos (auto) 0.90 (0.0-1.3) Lymphocytes % 13.6 L (24.0-44.0) % Monocytes % 10.3 (0.0-12.0) % Eosinophils % 3.0 (0.00-5.0) % Basophils % 0.8 (0.0-0.4) % Absolute Granulocytes 6.30 (1.4-6.9) Basophils # 0.07 (0-0.4) Sodium 141 (137-145) mmol/L Potassium 3.8 (3.5-5.1) mmol/L Chloride 102 (98-107) mmol/L Carbon Dioxide 27 (22-30) mmol/L Anion Gap 14.6 (5-15) MEQ/L BUN 24 H (7-17) mg/dL Creatinine 0.83 (0.52-1.04) mg/dL Estimated GFR > 60.0 ML/MIN Glucose 103 (74-106) mg/dL Calcium 9.8 (8.4-10.2) mg/dL Magnesium 1.7 (1.6-2.3) mg/dL Total Bilirubin 0.90 (0.2-1.3) mg/dL AST 38 H (14-36) U/L ALT 13 (0-35) U/L Alkaline Phosphatase 73 (38-126) U/L Troponin I 0.014 (0.000-0.034) ng/mL Serum Total Protein 7.7 (6.3-8.2) g/dL Albumin 4.4 (3.5-5.0) g/dL Influenza Type A Ag (NEGATIVE) Influenza Type B Ag (NEGATIVE) SARS-CoV-2 (PCR) (NEGATIVE) - Progress Progress: improved Air Movement: good Progress Note: Patient reassessed. She feels well. Work-up reveals a new atrial flutter. Anticoagulation administered. Patient will be admitted for A flutter work up. Chest x-ray suggestive of possible pneumonia. Ceftriaxone administered. Case discussed with Dr. Ruiz accepts admission to observation. Plan of care discussed with patient. She agrees to admission at [facility] for further evaluation and treatment. 05/09/21 05:04 05/09/21 05:09 Blood Culture(s) Obtained: No Antibiotics given: Yes Discussed with : Isaias Will see patient in: hospital (observation) Counseled pt/family regarding: lab results, diagnosis, rad results - Departure Departure Disposition: Observation Clinical Impression: Cough, Atrial flutter, Lung granuloma, Pneumonia Condition: Stable Critical Care Time: No
[2021-05-08 11:14] LABS: BASOPHIL % 0.8 % (0.0-0.4); Basophil (Absolute #) 0.07 (0-0.4); Eosinophil (Absolute #) 0.26 (0-0.5); Hematocrit 43.6 % (35-47); Hemoglobin 13.6 gm/dl (12.0-16.0); Lymphocyte (Absolute #) 1.19 (1.0-4.6); Lymphocytes % 13.6 % (24.0-44.0); Mean Cell Volume 95.6 fl (78-100); Mean Corpuscular Hemoglobin 29.8 pg (26-32); Mean Corpuscular Hgb Concent. 31.2 g/dl (32-36); Mean Platelet Volume 11.1 fl (7.5-11.0); Monocytes % 10.3 % (0.0-12.0); Neutrophil % 72.3 % (36.0-66.0); Platelet Count 274 K/mm3 (150-450); Red Blood Count 4.56 M/mm3 (4.1-5.4); Red Cell Distribution Width 13.9 % (11.5-14.0); White Blood Count 8.7 K/mm3 (4.0-10.5)
[2021-05-08 11:26] LABS: ALBUMIN 4.4 g/dL (3.5-5.0); ALKALINE PHOSPHATASE 73 U/L (38-126); ANION GAP 14.6 MEQ/L (5-15); BLOOD UREA NITROGEN 24 mg/dL (7-17); CHLORIDE 102 mmol/L (98-107); Calcium 9.8 mg/dL (8.4-10.2); Carbon Dioxide 27 mmol/L (22-30); Creatinine 1 0.83 mg/dL (0.52-1.04); EST GLOMERULAR FILTRATION RATE > 60.0 ML/MIN; Glucose 103 mg/dL (74-106); MAGNESIUM 1.7 mg/dL (1.6-2.3); Potassium 3.8 mmol/L (3.5-5.1); SGOT/AST 38 U/L (14-36); SGPT/ALT 13 U/L (0-35); SODIUM 141 mmol/L (137-145); Total Protein 7.7 g/dL (6.3-8.2)
--- NOTE | 2021-05-08 11:38 | XRAY ---
Exam: AP upright portable chest film from 05/08/2021. Comparison: AP upright portable chest film from 02/03/2019. Indication: History of COPD; cough. Findings: There is again noted be moderate elevation/eventration of the right hemidiaphragm. I note some increase curvilinear discoid density at the right lung base which may represent increased discoid atelectasis as compared to 02/03/2019. A superimposed infiltrate at this site is difficult to exclude. There also appear to be a few granulomatous calcifications at the medial aspect of the right lung base representing no change. The heart size appears within normal limits. There is some minimal linear scarring/plate atelectasis within the lateral left lower lung field. I cannot exclude a small epicardial fat pad at the left cardiophrenic angle. The upper lung zones appear clear. A calcified, mildly tortuous descending thoracic aorta is seen. There is no pneumothorax or pleural fluid. Degenerative disc changes are seen within the thoracic spine. Impression: 1. I again see moderate elevation/eventration of the right hemidiaphragm. There is now increased curvilinear discoid density at the right lung base just above the elevated right hemidiaphragm. This could be due to discoid atelectasis. Superimposed focal pneumonic infiltrate would be difficult to exclude. Correlate clinically. 2. Minimal linear scarring/plate atelectasis within lateral left lung base, stable. 3. Small stable granulomatous calcifications at medial right lung base. 4. No other acute cardiopulmonary disease is seen.
[2021-05-08 11:41] LABS: INFLUENZA A NEGATIVE (NEGATIVE); INFLUENZA B NEGATIVE (NEGATIVE)
[2021-05-08] MEDS ORDERED: ROCEPHIN 2 Gm-D5w 50ML BAG** 2 G/50 ML IVPB IV STA (12:15)
[2021-05-08] MEDS ORDERED: Zithromax 500 MG/ 250 ML NaCl Premix 500 MG/250 ML IVPB IV STA (12:15)
[2021-05-08] MEDS ORDERED: ENOXAPARIN SODIUM SQ STA (12:17)
[2021-05-08] MEDS ORDERED: Zithromax 500 MG/ 250 ML NaCl Premix 500 MG/250 ML IVPB IV ONE (12:30)
[2021-05-08] MEDS ORDERED: ROCEPHIN 2 Gm-D5w 50ML BAG** 2 G/50 ML IVPB IV ONE (12:30)
[2021-05-08] MEDS ORDERED: Senokot-S Tablet PO PRN (14:29)
[2021-05-08] MEDS ORDERED: MAALOX ES 30 ML UNIT DOSE PO PRN (14:29)
[2021-05-08] MEDS ORDERED: MILK OF MAGNESIA 30 ML PO PRN (14:29)
[2021-05-08] MEDS ORDERED: VENTOLIN COMMON CANISTER IH PRN ×2 (16:00→21:21)
[2021-05-08] MEDS ORDERED: MEDICATION INTERVENTION MC SCH (17:00)
[2021-05-08] MEDS: Glucophage 500 MG PO SCH (17:55)
[2021-05-08] MEDS ORDERED: VENTOLIN COMMON CANISTER IH SCH (19:00)
[2021-05-08] MEDS: PATIENT OWN MEDICATION IH SCH (19:02)
[2021-05-08] MEDS: Tessalon Perles 100 MG PO SCH (21:54)
[2021-05-08] MEDS: Ativan 1 MG PO SCH (21:54)
[2021-05-08] MEDS: Calcium 500MG W/Vit D Tablet PO SCH (21:54)
[2021-05-08] MEDS: ECOTRIN 81 MG PO SCH (21:54)
[2021-05-08] MEDS: Ocuvite Tablet PO SCH (21:54)
[2021-05-08] MEDS ORDERED: ETODOLAC 200 MG PO SCH (22:00)
[2021-05-08] MEDS ORDERED: NON-FORMULARY ITEM (Vit C/E/Zn/Coppr/Lutein/Zeaxan [Preservision Areds 2 Softgel] 1 CAP) PO SCH (22:00)
[2021-05-09 05:53] LABS: Risk Ratio 3.1
[2021-05-09] MEDS: VENTOLIN COMMON CANISTER IH SCH ×3 (06:55→15:07)
[2021-05-09] MEDS: PATIENT OWN MEDICATION IH SCH (06:55)
[2021-05-09] MEDS: TYLENOL 325 MG PO PRN (07:06)
[2021-05-09] MEDS: Lexapro 10 MG PO SCH (08:59)
[2021-05-09] MEDS: Tessalon Perles 100 MG PO SCH ×3 (08:59→17:59)
[2021-05-09] MEDS: Tricor 145 MG PO SCH (08:59)
[2021-05-09] MEDS: Calcium 500MG W/Vit D Tablet PO SCH (08:59)
[2021-05-09] MEDS: Ocuvite Tablet PO SCH (08:59)
[2021-05-09] MEDS: ROCEPHIN 2 Gm-D5w 50ML BAG** 2 G/50 ML IVPB IV SCH (08:59)
[2021-05-09] MEDS: ELIQUIS 2.5 MG TABLET PO SCH (12:44)
[2021-05-09] MEDS: Cardizem CD 120 MG PO SCH (12:44)
--- NOTE | 2021-05-09 13:34 | PCM.HP ---
History of Present Illness - Chief Complaint Chief Complaint: cough and sore throat for 2-3 days History of Present Illness: is a 81 year old female.presents to our ED with her daughter for evaluation of a cough and sore throat. Patient also advises that she has been experiencing subjective fever. Symptoms started approximately 3 days ago. Symptoms have been constant. Patient states she feels a little better today. Patient called her primary care doctor who advised patient come to our ED for an evaluation. Patient states her chest wall and abdomen are both sore due to the persistent coughing. No coughing observed while in our ED. Patient advises that she has a history of COPD. She uses 4 L of oxygen at nighttime only. Patient hypertensive on cardiac nurse practitioner. She is currently not taking any blood pressure medications. However she will follow-up with her primary care doctor to reassess her blood pressure. No nausea or vomiting. No diarrhea. No rash. Symptoms are mild to moderate in intensity. No specific worsening improving factors. Patient voices no other complaints concerns at this time. - Review of Systems Constitutional: Weakness, No Fever, No Chills Eyes: No Symptoms Ears, Nose, & Throat: No Symptoms, Throat Pain Respiratory: Cough, Short Of Breath Cardiac: No Chest Pain, No Edema, No Syncope Abdominal/Gastrointestinal: No Abdominal Pain, No Nausea, No Vomiting, No Diarrhea Genitourinary Symptoms: No Dysuria Musculoskeletal: No Back Pain, No Neck Pain Skin: No Rash Neurological: No Dizziness, No Focal Weakness, No Sensory Changes Psychological: No Symptoms Endocrine: No Symptoms Hematologic/Lymphatic: No Symptoms Immunological/Allergic: No Symptoms Medications & Allergies Home Medications: Home Medication List Fenofibrate,Micronized 145 mg* [Tricor 145 MG] 145 mg PO DAILY 01/18/13 [History Confirmed 05/08/21] Metformin HCl 500 mg [Glucophage 500 MG] 500 mg PO EVENING MEAL 01/18/13 [History Confirmed 05/08/21] Fluticasone/Salmeterol [Advair 250-50 Diskus] 1 each IH BID 06/04/14 [History Confirmed 05/08/21] Escitalopram Oxalate 10 mg [Lexapro 10 MG] 20 mg PO DAILY 10/11/14 [History Confirmed 05/08/21] Lorazepam 1 mg [Ativan 1 MG] 1 mg PO HS 10/11/14 [History Confirmed 05/08/21] Aspirin [Children's Aspirin] 81 mg PO HS 11/24/14 [History Confirmed 05/08/21] Etodolac [Lodine] 200 mg PO BID 09/26/18 [History Confirmed 05/08/21] Albuterol Common Canister [Ventolin Common Canister] 2 puff IH Q4H PRN PRN 02/03/19 [History Confirmed 05/08/21] Calcium Carbonate/Vitamin D3 [Calcium 500 + Vit D 200 Tablet] 1 each PO BID 05/08/21 [History Confirmed 05/08/21] Vit C/E/Zn/Coppr/Lutein/Zeaxan [Preservision Areds 2 Softgel] 1 cap PO BID 05/08/21 [History Confirmed 05/08/21] Allergies/Adverse Reactions: Allergies Allergy/AdvReac Type Severity Reaction Status Date / Time No Known Drug Allergies Allergy Verified 05/08/21 10:34 - Past Medical History Past Medical History: Yes Neurological History: No Pertinent History ENT History: Cataracts Cardiac History: Congestive Heart Failure, High Cholesterol, Hypertension Respiratory History: COPD, Pneumonia, Sleep Apnea, Other Endocrine Medical History: Diabetes Type I Musculoskelatal History: No Pertinent History, Osteoporosis GI Medical History: No Pertinent History History: No Pertinent History Pyscho-Social History: Anxiety, Depression Reproductive Disorders: No Pertinent History Comment: cpap - Female History Are you now?: No - Past Surgical History Past Surgical History: Yes (11/08/14) Neuro Surgical History: No Pertinent History Cardiac History: No Pertinent History Respiratory Surgery: No Pertinent History GI Surgical History: No Pertinent History Genitourinary Surgical Hx: No Pertinent History Musculskeletal Surgical Hx: Joint Replacement Female Surgical History: Hysterectomy Other Surgical History: BILAT KNEE REPLACEMENTSRT FOOT PLATE 2010 and 2011 - Social History Smoking Status: Never smoker Exposure to second hand smoke: No Alcohol: None Drug Use: none - Physical Exam Vital Signs: Vital Signs - 24 hr Temp Pulse Resp BP Pulse Ox 05/09/21 11:52 97.5 F 56 L 18 126/62 95 05/09/21 10:56 89 16 96 05/09/21 10:07 77 20 93 L 05/09/21 07:50 98.3 F 79 16 156/78 90 L 08/19/21 05:11 92 L 05/09/21 04:00 98.2 F 78 20 157/90 91 L 05/08/21 23:31 98.3 F 73 22 154/74 92 L 05/08/21 19:34 97.7 F 72 22 140/72 93 L 05/08/21 19:06 78 20 91 L 05/08/21 16:48 73 22 93 L 05/08/21 16:00 96 H 22 92 L 05/08/21 15:00 97.1 F 73 20 139/77 91 L 05/08/21 14:05 73 23 138/73 94 L General Appearance: no apparent distress, alert Neurologic Exam: alert, oriented x 3, cooperative, normal mood/affect, nml station & gait, sensation nml, No motor deficits Eye Exam: PERRL/EOMI, eyes nml inspection Ears, Nose, Throat Exam: normal ENT inspection, TMs normal, pharynx normal, moist mucous membranes Neck Exam: normal inspection, non-tender, supple, full range of motion Respiratory Exam: diminished breath sounds, crackles/rales, rhonchi, wheezing, No respiratory distress Cardiovascular Exam: regular rate/rhythm, normal heart sounds, normal peripheral pulses Gastrointestinal/Abdomen Exam: soft, normal bowel sounds, No tenderness, No mass Back Exam: normal inspection, normal range of motion, No CVA tenderness, No vertebral tenderness Extremity Exam: normal inspection, normal range of motion, pelvis stable Skin Exam: normal color, warm, dry, No rash Lymphatic Exam: No adenopathy Results - Labs Lab/Micro Results: Lab Results-Last 24 Hours 05/08/21 05/08/21 05/08/21 Range/Units 12:39 13:51 17:20 Hemoglobin A1c (4.5-6.0) % Troponin I < 0.012 0.015 (0.000-0.034) ng/mL Triglycerides (30-150) mg/dL Cholesterol (50-200) mg/dL LDL Cholesterol (30-100) mg/dL HDL Cholesterol (40-60) mg/dL Heart Disease Risk Ratio SARS-CoV-2 (PCR) NEGATIVE (NEGATIVE) 05/08/21 05/08/21 05/09/21 Range/Units 19:50 23:00 04:55 Hemoglobin A1c (4.5-6.0) % Troponin I 0.015 0.021 (0.000-0.034) ng/mL Triglycerides 119 (30-150) mg/dL Cholesterol 130 (50-200) mg/dL LDL Cholesterol 65 (30-100) mg/dL HDL Cholesterol 42 (40-60) mg/dL Heart Disease Risk Ratio 3.1 SARS-CoV-2 (PCR) (NEGATIVE) 05/09/21 Range/Units 04:55 Hemoglobin A1c 6.12 H (4.5-6.0) % Troponin I (0.000-0.034) ng/mL Triglycerides (30-150) mg/dL Cholesterol (50-200) mg/dL LDL Cholesterol (30-100) mg/dL HDL Cholesterol (40-60) mg/dL Heart Disease Risk Ratio SARS-CoV-2 (PCR) (NEGATIVE) Accuchecks Date 05/09/21 Date 05/08/21 Date 05/08/21 Time 21:30 - Radiology Impressions Radiology Exams & Impressions: Radiology Procedures Category Date Time Status CHEST 1 VIEW (PORTABLE) Stat Exams 05/08/21 10:48 Completed ECHO W/2D AND DOPPLER [US] Routine Exams 05/09/21 Ordered RAD/CHEST 1 VIEW (PORTABLE) Exam: AP upright portable chest film from 05/08/2021. Comparison: AP upright portable chest film from 02/03/2019. Indication: History of COPD; cough. Findings: There is again noted be moderate elevation/eventration of the right hemidiaphragm. I note some increase curvilinear discoid density at the right lung base which may represent increased discoid atelectasis as compared to 02/03/2019. A superimposed infiltrate at this site is difficult to exclude. There also appear to be a few granulomatous calcifications at the medial aspect of the right lung base representing no change. The heart size appears within normal limits. There is some minimal linear scarring/plate atelectasis within the lateral left lower lung field. I cannot exclude a small epicardial fat pad at the left cardiophrenic angle. The upper lung zones appear clear. A calcified, mildly tortuous descending thoracic aorta is seen. There is no pneumothorax or pleural fluid. Degenerative disc changes are seen within the thoracic spine. Impression: 1. I again see moderate elevation/eventration of the right hemidiaphragm. There is now increased curvilinear discoid density at the right lung base just above the elevated right hemidiaphragm. This could be due to discoid atelectasis. Superimposed focal pneumonic infiltrate would be difficult to exclude. Correlate clinically. 2. Minimal linear scarring/plate atelectasis within lateral left lung base, stable. 3. Small stable granulomatous calcifications at medial right lung base. 4. No other acute cardiopulmonary disease is seen. - Other Procedures and Tests Respiratory Therapy 05/08/21 16:10 Oxygen Nasal Cannula 2 lpm Respiratory Therapy Assessment DAILY 05/08/21 16:11 BiPap/CPAP ROUTINE 05/09/21 07:00 Respiratory MDI BID 05/09/21 13:06 Qualify for Home Oxygen ROUTINE 05/10/21 05:00 EKG ROUTINE 05/11/21 05:00 EKG ROUTINE Assessment/Plan (1) Pneumonia Current Visit: Yes Status: Acute Qualifiers: Pneumonia type: due to unspecified organism Laterality: left Lung location: lower lobe of lung Qualified Code(s): J18.9 - Pneumonia, unspecified organism Assessment & Plan: Chief Complaint Diagnosis Atrial flutter Allergies Allergy/AdvReac Type Severity Reaction Status Date / Time No Known Drug Allergies Allergy Verified 05/08/21 10:34 Vital Signs (Last 24 hours) Temp Pulse Resp BP Pulse Ox 05/09/21 11:52 97.5 F 56 L 18 126/62 95 05/09/21 10:56 89 16 96 05/09/21 10:07 77 20 93 L 05/09/21 07:50 98.3 F 79 16 156/78 90 L 05/09/21 05:11 92 L 05/09/21 04:00 98.2 F 78 20 157/90 91 L 05/08/21 23:31 98.3 F 73 22 154/74 92 L 05/08/21 19:34 97.7 F 72 22 140/72 93 L 05/08/21 19:06 78 20 91 L 05/08/21 16:48 73 22 93 L 05/08/21 16:00 96 H 22 92 L 05/08/21 15:00 97.1 F 73 20 139/77 91 L 05/08/21 14:05 73 23 138/73 94 L Home Medications Medication Instructions Recorded Confirmed Last Taken Type Calcium Carbonate/Vitamin D3 1 each PO BID 05/08/21 05/08/21 05/07/21 21:00 History [Calcium 500 + Vit D 200 Tablet] Vit C/E/Zn/Coppr/Lutein/Zeaxan 1 cap PO BID 05/08/21 05/08/21 05/08/21 History [Preservision Areds 2 Softgel] Current Medications Generic Name Dose Route Start Last Admin Trade Name Freq PRN Reason Stop Dose Admin Acetaminophen 650 mg 05/08/21 14:29 05/09/21 07:06 Tylenol 325 Mg PO 06/07/21 14:28 650 mg Q4H PRN PRN Administration PAIN AND/OR FEVER Al Hydrox/Mg Hydrox/Simethicone 30 ml 05/08/21 14:29 Maalox Es 30 Ml Unit Dose PO 06/07/21 14:28 Q4H PRN PRN INDIGESTION Albuterol Sulfate 2 puff 05/09/21 07:00 05/09/21 10:52 Ventolin Common Canister IH 06/08/21 06:59 2 puff QIDRT MAHESH Administration Albuterol Sulfate 2 puff 05/08/21 21:21 Ventolin Common Canister IH 06/07/21 21:20 Q4H PRN PRN SHORTNESS OF BREATH/WHEEZING Apixaban 5 mg 05/09/21 13:00 05/09/21 12:44 Eliquis 2.5 Mg Tablet PO 06/08/21 12:59 5 mg BID MAHESH Administration Aspirin 81 mg 05/08/21 22:00 05/08/21 21:54 Ecotrin 81 Mg PO 06/07/21 21:59 81 mg HS MAHESH Administration Benzonatate 100 mg 05/08/21 22:00 05/09/21 12:44 Tessalon Perles 100 Mg PO 06/07/21 21:59 100 mg QID MAHESH Administration Calcium Carbonate 1 tab 05/08/21 22:00 05/09/21 08:59 Calcium 500mg W/Vit D Tablet PO 06/07/21 21:59 1 tab BID MAHESH Administration Diltiazem HCl 120 mg 05/09/21 13:00 05/09/21 12:44 Cardizem Cd 120 Mg PO 06/08/21 12:59 120 mg DAILY MAHESH Administration Escitalopram Oxalate 20 mg 05/09/21 10:00 05/09/21 08:59 Lexapro 10 Mg PO 06/08/21 09:59 20 mg DAILY MAHESH Administration Fenofibrate 145 mg 05/09/21 10:00 05/09/21 08:59 Tricor 145 Mg PO 06/08/21 09:59 145 mg DAILY MAHESH Administration Ceftriaxone Sodium/Dextrose 2 g in 50 mls @ 100 mls/hr 05/09/21 10:00 05/09/21 08:59 Rocephin 2 Gm-D5w 50ml Bag IV 05/12/21 09:59 100 mls/hr Q24H10 MAHESH Administration Lorazepam 1 mg 05/08/21 22:00 05/08/21 21:54 Ativan 1 Mg PO 06/07/21 21:59 1 mg HS MAHESH Administration Magnesium Hydroxide 30 - 60 ml 05/08/21 14:29 Milk Of Magnesia 30 Ml PO 06/07/21 14:28 QDP PRN CONSTIPATION Metformin HCl 500 mg 05/08/21 18:00 05/08/21 17:55 Glucophage 500 Mg PO 06/07/21 17:59 500 mg EVENING MEAL MAHESH Administration Miscellaneous Information 1 each 05/08/21 17:00 Medication Intervention MC 06/07/21 16:59 .RN TO CHECK [facility] Multivitamins/Minerals 1 tab 05/08/21 22:00 05/09/21 08:59 Ocuvite Tablet PO 06/07/21 21:59 1 tab BID MAHESH Administration Patient Own Medication 1 each 05/08/21 19:00 05/09/21 06:55 Patient Own Medication 06/07/21 18:59 1 each BIDRT MAHESH Administration Senna/Docusate Sodium 2 udtab 05/08/21 14:29 Senokot-S Tablet PO 06/07/21 14:28 BID PRN PRN CONSTIPATION Discontinued Medications Generic Name Dose Route Start Last Admin Trade Name Freq PRN Reason Stop Dose Admin Albuterol Sulfate 4 puff 05/08/21 19:00 05/08/21 19:02 Ventolin Common Canister IH 06/07/21 18:59 2 puff QIDRT MAHESH Administration Albuterol Sulfate 4 puff 05/08/21 16:00 05/08/21 16:07 Ventolin Common Canister IH 06/07/21 15:59 4 puff Q4H PRN PRN Administration SHORTNESS OF BREATH/WHEEZING Enoxaparin Sodium 100 mg 05/08/21 12:17 05/08/21 12:36 Enoxaparin Sodium SQ 05/08/21 12:18 100 mg ONCE STA Administration Ceftriaxone Sodium/Dextrose 2 g in 50 mls @ 100 mls/hr 05/08/21 12:15 05/08/21 13:19 Rocephin 2 Gm-D5w 50ml Bag IV 05/08/21 12:44 Infused STAT STA Infusion Azithromycin 500 mg in 250 mls @ 250 mls/hr 05/08/21 12:15 05/08/21 13:39 Zithromax 500 Mg/ 250 Ml Nacl Premix IV 05/08/21 13:14 Infused STAT STA Infusion Azithromycin Confirm 05/08/21 12:30 Zithromax 500 Mg/ 250 Ml Nacl Premix Administered 05/08/21 12:31 Dose 500 mg in 250 mls @ ud IV .STK-MED ONE Ceftriaxone Sodium/Dextrose Confirm 05/08/21 12:30 Rocephin 2 Gm-D5w 50ml Bag Administered 05/08/21 12:31 Dose 2 g in 50 mls @ ud IV .STK-MED ONE Intake & Output (Last 24 hours) 05/07/21 05/08/21 05/09/21 05/10/21 11:59 11:59 11:59 11:59 Intake Total 660 Balance 660 Weight 110.677 kg 112 kg Laboratory Results (Last 24 hours) 05/09/21 05/09/21 05/08/21 04:55 04:55 23:00 Hemoglobin A1c 6.12 H Troponin I 0.021 Triglycerides 119 Cholesterol 130 LDL Cholesterol 65 HDL Cholesterol 42 Heart Disease Risk Ratio 3.1 SARS-CoV-2 (PCR) 05/08/21 05/08/21 05/08/21 19:50 17:20 13:51 Hemoglobin A1c Troponin I 0.015 0.015 < 0.012 Triglycerides Cholesterol LDL Cholesterol HDL Cholesterol Heart Disease Risk Ratio SARS-CoV-2 (PCR) 05/08/21 12:39 Hemoglobin A1c Troponin I Triglycerides Cholesterol LDL Cholesterol HDL Cholesterol Heart Disease Risk Ratio SARS-CoV-2 (PCR) NEGATIVE Orders (Last 24 hours) Category Date Time Status Bedrest with BRP/BSC ROUTINE Activity 05/08/21 14:29 Active Code Status Order ROUTINE Care 05/08/21 14:29 Active IV Care Q6H Care 05/08/21 14:29 Active Implement Chest Pain Pathway ROUTINE Care 05/08/21 14:29 Active POCT Glucose Check ACHS Care 05/09/21 09:[address] in Observation ROUTINE Care 05/08/21 14:29 Active Benji Noonan, Apply ROUTINE Care 05/08/21 14:29 Active Telemetry q6h Care 05/08/21 14:29 Active Weight,Daily 0600 Care 05/08/21 14:29 Active Consult Cardiology ROUTINE Cons 05/09/21 12:20 Active Drain Technician/Discharge Plan ROUTINE Cons 05/08/21 15:37 Active Consistent Carbohydrate Diet 1800 Calorie Diet 05/08/21 Dinner Active Nutritional Admission Screen ONCE Diet 05/08/21 15:37 Active ECHO W/2D AND DOPPLER [US] Routine Exams 05/09/21 Ordered HEMOGLOBIN A1C Urgent Lab 05/09/21 04:55 Completed LIPID PROFILE AM.LAB Lab 05/09/21 04:55 Completed SARS-CoV-2 Xpert Express Routine Lab 05/08/21 12:39 Completed TROPONIN Q3H Lab 05/08/21 13:51 Completed TROPONIN Q3H Lab 05/08/21 17:20 Completed TROPONIN Q3H Lab 05/08/21 19:50 Completed TROPONIN Q3H Lab 05/08/21 23:00 Completed Acetaminophen 325 mg [Tylenol 325 mg] Med 05/08/21 14:29 Active 650 mg PO Q4H PRN PRN Albuterol Common Canister [Ventolin Common Canister* Med 05/08/21 21:21 Active ] 2 puff IH Q4H PRN PRN Albuterol Common Canister [Ventolin Common Canister* Med 05/09/21 07:00 Active ] 2 puff IH QIDRT Albuterol Common Canister [Ventolin Common Canister* Med 05/08/21 16:00 Discontinued ] 4 puff IH Q4H PRN PRN Albuterol Common Canister [Ventolin Common Canister* Med 05/08/21 19:00 Discontinued ] 4 puff IH QIDRT Apixaban [Eliquis 2.5 mg Tablet] Med 05/09/21 13:00 Active 5 mg PO BID Aspirin EC 81 mg [Ecotrin 81 mg] Med 05/08/21 22:00 Active 81 mg PO HS Benzonatate 100 mg [Tessalon Perles 100 MG] Med 05/08/21 22:00 Active 100 mg PO QID Beta-Carotene(A) W-C & E/Min [Ocuvite Tablet] Med 05/08/21 22:00 Active 1 tab PO BID Calcium Carb/Vitamin D 500 mg* [Calcium 500MG W/Vit D Med 05/08/21 22:00 Active Tablet] 1 tab PO BID Ceftriaxone 2 GM/50 ML PREMIX* [ROCEPHIN 2 Gm-D5w 50ML Med 05/09/21 10:00 Active BAG] 2 g in 50 ml IV Q24H10 Diltiazem HCl 120 mg [Cardizem CD 120 MG] Med 05/09/21 13:00 Active 120 mg PO DAILY Escitalopram Oxalate 10 mg [Lexapro 10 MG] Med 05/09/21 10:00 Active 20 mg PO DAILY Fenofibrate,Micronized 145 mg* [Tricor 145 MG] Med 05/09/21 10:00 Active 145 mg PO DAILY Lorazepam 1 mg [Ativan 1 MG] Med 05/08/21 22:00 Active 1 mg PO HS Mag Hydrox/Al Hydrox/Simeth [Maalox Es 30 ml Unit Med 05/08/21 14:29 Active Dose] 30 ml PO Q4H PRN PRN Magnesium Hydroxide 30 ml [Milk of Magnesia 30 ml Med 05/08/21 14:29 Active ] 30 - 60 ml PO QDP PRN Medication Intervention Med 05/08/21 17:00 Active 1 each MC .RN TO CHECK Metformin HCl 500 mg [Glucophage 500 MG] Med 05/08/21 18:00 Active 500 mg PO EVENING MEAL Patient Own Med [Patient Own Medication] Med 05/08/21 19:00 Active 1 each IH BIDRT Senna/Docusate Sodium Tab [Senokot-S Tablet] Med 05/08/21 14:29 Active 2 udtab PO BID PRN PRN BiPap/CPAP ROUTINE RT 05/08/21 16:11 Active EKG ROUTINE RT 05/08/21 19:47 Completed EKG ROUTINE RT 05/09/21 05:00 Completed EKG ROUTINE RT 05/10/21 05:00 Active EKG ROUTINE RT 05/11/21 05:00 Active Oxygen Nasal Cannula 2 lpm RT 05/08/21 16:10 Active Pulse Oximetry .spot check RT 05/08/21 14:29 Active Qualify for Home Oxygen ROUTINE RT 05/09/21 13:06 Active RT Screen per Nursing Assess ONCE RT 05/08/21 15:37 Completed Respiratory MDI BID RT 05/09/21 07:00 Active Respiratory Therapy Assessment DAILY RT 05/08/21 16:10 Active Code(s): J18.9 - PNEUMONIA, UNSPECIFIED ORGANISM (2) Atrial flutter Current Visit: Yes Status: Acute Qualifiers: Atrial flutter type: atypical Qualified Code(s): I48.4 - Atypical atrial flutter Code(s): I48.92 - UNSPECIFIED ATRIAL FLUTTER (3) Cough Current Visit: Yes Status: Acute Code(s): R05 - COUGH (4) Lung granuloma Current Visit: Yes Status: Acute Code(s): J84.10 - PULMONARY FIBROSIS, UNSPECIFIED (5) Acute exacerbation of chronic bronchitis Current Visit: No Status: Acute Code(s): J20.9 - ACUTE BRONCHITIS, UNSPECIFIED; J42 - UNSPECIFIED CHRONIC BRONCHITIS (6) Hypertensive CHF (congestive heart failure) Current Visit: No Status: Chronic Code(s): I11.0 - HYPERTENSIVE HEART DISEASE WITH HEART FAILURE
[2021-05-09] MEDS: Glucophage 500 MG PO SCH (17:59)
[2021-05-10] MEDS ORDERED: DUONEB 0.5-3 MG/3 ml Neb IH ONE (05:48)
[2021-05-10] MEDS: Ocuvite Tablet PO SCH ×3 (10:07→20:46)
[2021-05-10] MEDS: Cardizem CD 120 MG PO SCH (10:07)
[2021-05-10] MEDS: Lexapro 10 MG PO SCH (10:07)
[2021-05-10] MEDS: Calcium 500MG W/Vit D Tablet PO SCH ×3 (10:07→20:45)
[2021-05-10] MEDS: Tricor 145 MG PO SCH (10:07)
[2021-05-10] MEDS: ELIQUIS 2.5 MG TABLET PO SCH ×3 (10:08→20:46)
[2021-05-10] MEDS: Tessalon Perles 100 MG PO SCH ×5 (10:08→20:46)
[2021-05-10] MEDS: ROCEPHIN 2 Gm-D5w 50ML BAG** 2 G/50 ML IVPB IV SCH (10:14)
[2021-05-10] MEDS: TYLENOL 325 MG PO PRN (10:14)
[2021-05-10] MEDS: VENTOLIN COMMON CANISTER IH SCH ×5 (11:43→19:54)
--- NOTE | 2021-05-10 12:29 | PCM.NOTE ---
Date and Time: 05/10/21 1226 Subjective Assessment: doing better - Review of Systems Constitutional: No Fever, No Chills Eyes: No Symptoms Ears, Nose, & Throat: No Symptoms Respiratory: Short Of Breath, No Cough Cardiac: No Chest Pain, No Edema, No Syncope Abdominal/Gastrointestinal: No Abdominal Pain, No Nausea, No Vomiting, No Diarrhea Genitourinary Symptoms: No Dysuria Musculoskeletal: No Back Pain, No Neck Pain Skin: No Rash Neurological: No Dizziness, No Focal Weakness, No Sensory Changes Psychological: No Symptoms Endocrine: No Symptoms Hematologic/Lymphatic: No Symptoms Immunological/Allergic: No Symptoms Objective Exam General Appearance: no apparent distress, alert Neurologic Exam: alert, oriented x 3, cooperative, normal mood/affect, nml cerebellar function, sensation nml, No motor deficits Skin Exam: normal color, warm, dry Eye Exam: PERRL, EOMI, eyes nml inspection Ears, Nose, Throat Exam: normal ENT inspection, pharynx normal, moist mucous membranes Neck Exam: normal inspection, non-tender, supple, full range of motion Respiratory Exam: diminished breath sounds, wheezing, No respiratory distress Cardiovascular Exam: regular rate/rhythm, normal heart sounds Gastrointestinal/Abdomen Exam: soft, No tenderness, No mass Extremity Exam: normal inspection, normal range of motion Back Exam: normal inspection, normal range of motion, No CVA tenderness, No vertebral tenderness Pelvic Exam: deferred Rectal Exam: deferred OBJECTIVE DATA Vital Signs: Vital Signs - 24 hr Temp Pulse Resp BP Pulse Ox 05/10/21 11:50 62 18 91 L 05/10/21 08:00 98.1 F 64 21 175/84 95 05/09/21 16:18 52 L 20 95 05/09/21 16:00 97.7 F 70 26 H 117/67 93 L Pain Assessment - Last Documented Pain Intensity 6 Pain Scale Used 0-10 Pain Scale Intake and Output: Intake & Output 05/08/21 05/09/21 05/10/21 05/11/21 11:59 11:59 11:59 11:59 Intake Total 660 955 Output Total 450 Balance 660 505 Weight 110.677 kg 112 kg Radiology Exams: Radiology Procedures Category Date Time Status ECHO W/2D AND DOPPLER [US] Routine Exams 05/09/21 13:41 Taken Multi-Disciplinary Progress Notes: Multi-Disciplinary Progress Notes 05/09/21 16:20 Respiratory Note by Daniela Li PT'S ROOM AIR RESTING SAT 88% PLACED ON ON 2L NC SATS UP TO 94% Initialized on 05/09/21 16:20 - END OF NOTE Assessment/Plan (1) Pneumonia Current Visit: Yes Status: Acute Qualifiers: Pneumonia type: due to unspecified organism Laterality: left Lung location: lower lobe of lung Qualified Code(s): J18.9 - Pneumonia, unspecified organism Assessment & Plan: improving Code(s): J18.9 - PNEUMONIA, UNSPECIFIED ORGANISM (2) Atrial flutter Current Visit: Yes Status: Acute Qualifiers: Atrial flutter type: atypical Qualified Code(s): I48.4 - Atypical atrial flutter Assessment & Plan: on cardizem and eliquis Code(s): I48.92 - UNSPECIFIED ATRIAL FLUTTER (3) Cough Current Visit: Yes Status: Resolved Code(s): R05 - COUGH (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
[2021-05-10 13:07] LABS: Hematocrit 41.3 % (35-47); Hemoglobin 13.1 gm/dl (12.0-16.0); Mean Cell Volume 96.7 fl (78-100); Mean Corpuscular Hemoglobin 30.7 pg (26-32); Mean Corpuscular Hgb Concent. 31.7 g/dl (32-36); Mean Platelet Volume 10.3 fl (7.5-11.0); Platelet Count 239 K/mm3 (150-450); Red Blood Count 4.27 M/mm3 (4.1-5.4); Red Cell Distribution Width 13.9 % (11.5-14.0); White Blood Count 9.1 K/mm3 (4.0-10.5)
[2021-05-10 13:35] LABS: ALBUMIN 4.2 g/dL (3.5-5.0); ALKALINE PHOSPHATASE 66 U/L (38-126); ANION GAP 13.4 MEQ/L (5-15); BLOOD UREA NITROGEN 18 mg/dL (7-17); CHLORIDE 101 mmol/L (98-107); Calcium 9.9 mg/dL (8.4-10.2); Carbon Dioxide 28 mmol/L (22-30); Creatinine 1 0.61 mg/dL (0.52-1.04); EST GLOMERULAR FILTRATION RATE > 60.0 ML/MIN; Glucose 141 mg/dL (74-106); Potassium 3.5 mmol/L (3.5-5.1); SGOT/AST 39 U/L (14-36); SGPT/ALT 14 U/L (0-35); SODIUM 139 mmol/L (137-145); Total Protein 7.6 g/dL (6.3-8.2)
[2021-05-10] MEDS: Sterile H2O 10 ml IJ SCH ×2 (14:24→20:47)
[2021-05-10] MEDS: solu-MEDROL 40 MG IV SCH ×2 (14:24→20:46)
[2021-05-10] MEDS: PATIENT OWN MEDICATION IH SCH ×3 (17:23→19:54)
[2021-05-10] MEDS: ECOTRIN 81 MG PO SCH ×2 (17:24→20:46)
[2021-05-10] MEDS: Ativan 1 MG PO SCH ×2 (17:24→20:46)
[2021-05-10] MEDS: Glucophage 500 MG PO SCH (17:27)
[2021-05-10] MEDS: HUMALOG SQ PRN (20:47)
[2021-05-11] MEDS: PATIENT OWN MEDICATION IH SCH ×2 (07:15→17:37)
[2021-05-11] MEDS: VENTOLIN COMMON CANISTER IH SCH ×4 (07:15→17:36)
[2021-05-11] MEDS: ROCEPHIN 2 Gm-D5w 50ML BAG** 2 G/50 ML IVPB IV SCH (09:47)
[2021-05-11] MEDS: Sterile H2O 10 ml IJ SCH ×2 (09:47→20:15)
[2021-05-11] MEDS: solu-MEDROL 40 MG IV SCH ×2 (09:47→20:15)
[2021-05-11] MEDS: Lexapro 10 MG PO SCH (09:48)
[2021-05-11] MEDS: Ocuvite Tablet PO SCH ×2 (09:48→20:14)
[2021-05-11] MEDS: Tessalon Perles 100 MG PO SCH ×4 (09:48→20:15)
[2021-05-11] MEDS: Cardizem CD 120 MG PO SCH (09:48)
[2021-05-11] MEDS: Tricor 145 MG PO SCH (09:48)
[2021-05-11] MEDS: Calcium 500MG W/Vit D Tablet PO SCH ×2 (09:48→20:14)
[2021-05-11] MEDS: ELIQUIS 2.5 MG TABLET PO SCH ×2 (09:48→20:14)
[2021-05-11] MEDS: HUMALOG SQ PRN ×3 (12:43→20:16)
--- NOTE | 2021-05-11 14:26 | PCM.NOTE ---
Date and Time: 05/11/211422 Subjective Assessment: doing better - Review of Systems Constitutional: No Fever, No Chills Eyes: No Symptoms Ears, Nose, & Throat: No Symptoms Respiratory: No Cough, No Short Of Breath Cardiac: No Chest Pain, No Edema, No Syncope Abdominal/Gastrointestinal: No Abdominal Pain, No Nausea, No Vomiting, No Diarrhea Genitourinary Symptoms: No Dysuria Musculoskeletal: No Back Pain, No Neck Pain Skin: No Rash Neurological: No Dizziness, No Focal Weakness, No Sensory Changes Psychological: No Symptoms Endocrine: No Symptoms Hematologic/Lymphatic: No Symptoms Immunological/Allergic: No Symptoms Objective Exam General Appearance: no apparent distress, alert Neurologic Exam: alert, oriented x 3, cooperative, normal mood/affect, nml cerebellar function, sensation nml, No motor deficits Skin Exam: normal color, warm, dry Eye Exam: PERRL, EOMI, eyes nml inspection Ears, Nose, Throat Exam: normal ENT inspection, pharynx normal, moist mucous membranes Neck Exam: normal inspection, non-tender, supple, full range of motion Respiratory Exam: normal breath sounds, lungs clear, No respiratory distress Cardiovascular Exam: regular rate/rhythm, normal heart sounds Gastrointestinal/Abdomen Exam: soft, No tenderness, No mass Extremity Exam: normal inspection, normal range of motion Back Exam: normal inspection, normal range of motion, No CVA tenderness, No vertebral tenderness Pelvic Exam: deferred Rectal Exam: deferred OBJECTIVE DATA Vital Signs: Vital Signs - 24 hr Temp Pulse Resp BP BP Pulse Ox 05/11/21 12:00 97 F 90 15 141/75 97 05/11/21 07:41 96.3 F 56 L 19 134/60 96 05/11/21 07:32 56 L 16 94 L 05/11/21 04:04 96.7 F 60 22 147/70 95 05/11/21 00:00 98.3 F 73 20 142/68 93 L 05/10/21 20:00 97.9 F 82 24 157/71 93 L 05/10/21 18:57 75 20 92 L 05/10/21 16:00 97.9 F 57 L 21 120/57 94 L 05/10/21 15:00 56 L 18 93 L Pain Assessment - Last Documented Pain Intensity 0 Pain Scale Used 0-10 Pain Scale Intake and Output: Intake & Output 05/09/21 05/10/21 05/11/21 08/22/21 11:59 11:59 11:59 11:59 Intake Total 660 955 830 480 Output Total 450 Balance 660 505 830 480 Weight 112 kg Radiology Exams: Radiology Procedures Category Date Time Status ECHO W/2D AND DOPPLER [US] Routine Exams 05/09/21 13:41 Taken Assessment/Plan (1) Pneumonia Current Visit: Yes Status: Acute Qualifiers: Pneumonia type: due to unspecified organism Laterality: left Lung location: lower lobe of lung Qualified Code(s): J18.9 - Pneumonia, unspecified organism Code(s): J18.9 - PNEUMONIA, UNSPECIFIED ORGANISM (2) Atrial flutter Current Visit: Yes Status: Acute Qualifiers: Atrial flutter type: atypical Qualified Code(s): I48.4 - Atypical atrial flutter Assessment & Plan: on cardizem and eliquis doing ok Code(s): I48.92 - UNSPECIFIED ATRIAL FLUTTER (3) Cough Current Visit: Yes Status: Resolved Code(s): R05 - COUGH (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 Code(s): J84.10 - PULMONARY FIBROSIS, UNSPECIFIED (5) Acute exacerbation of chronic bronchitis Current Visit: No Status: Acute Assessment & Plan: Chief Complaint Diagnosis PNEUMONIA Allergies Allergy/AdvReac Type Severity Reaction Status Date / Time No Known Drug Allergies Allergy Verified 05/08/21 10:34 Vital Signs (Last 24 hours) Temp Pulse Resp BP BP Pulse Ox 05/11/21 12:00 97 F 90 15 141/75 97 05/11/21 07:41 96.3 F 56 L 19 134/60 96 05/11/21 07:32 56 L 16 94 L 05/11/21 04:04 96.7 F 60 22 147/70 95 05/11/21 00:00 98.3 F 73 20 142/68 93 L 05/10/21 20:00 97.9 F 82 24 157/71 93 L 05/10/21 18:57 75 20 92 L 05/10/21 16:00 97.9 F 57 L 21 120/57 94 L 05/10/21 15:00 56 L 18 93 L Home Medications Medication Instructions Recorded Confirmed Last Taken Type Calcium Carbonate/Vitamin D3 1 each PO BID 05/08/21 05/08/21 05/07/21 21:00 History [Calcium 500 + Vit D 200 Tablet] Vit C/E/Zn/Coppr/Lutein/Zeaxan 1 cap PO BID 05/08/21 05/08/21 05/08/21 History [Preservision Areds 2 Softgel] Current Medications Generic Name Dose Route Start Last Admin Trade Name Freq PRN Reason Stop Dose Admin Acetaminophen 650 mg 05/08/21 14:29 05/10/21 10:14 Tylenol 325 Mg PO 06/07/21 14:28 650 mg Q4H PRN PRN Administration PAIN AND/OR FEVER Al Hydrox/Mg Hydrox/Simethicone 30 ml 05/08/21 14:29 Maalox Es 30 Ml Unit Dose PO 06/07/21 14:28 Q4H PRN PRN INDIGESTION Albuterol Sulfate 2 puff 05/09/21 07:00 05/11/21 07:15 Ventolin Common Canister IH 06/08/21 06:59 2 puff QIDRT MAHESH Administration Albuterol Sulfate 2 puff 05/08/21 21:21 Ventolin Common Canister IH 06/07/21 21:20 Q4H PRN PRN SHORTNESS OF BREATH/WHEEZING Apixaban 5 mg 05/09/21 13:00 05/11/21 09:48 Eliquis 2.5 Mg Tablet PO 06/08/21 12:59 5 mg BID MAHESH Administration Aspirin 81 mg 05/08/21 22:00 05/10/21 20:46 Ecotrin 81 Mg PO 06/07/21 21:59 81 mg HS MAHESH Administration Benzonatate 100 mg 05/08/21 22:00 05/11/21 12:42 Tessalon Perles 100 Mg PO 06/07/21 21:59 100 mg QID MAHESH Administration Calcium Carbonate 1 tab 05/08/21 22:00 05/11/21 09:48 Calcium 500mg W/Vit D Tablet PO 06/07/21 21:59 1 tab BID MAHESH Administration Diltiazem HCl 120 mg 05/09/21 13:00 05/11/21 09:48 Cardizem Cd 120 Mg PO 06/08/21 12:59 120 mg DAILY MAHESH Administration Escitalopram Oxalate 20 mg 05/09/21 10:00 05/11/21 09:48 Lexapro 10 Mg PO 06/08/21 09:59 20 mg DAILY MAHESH Administration Fenofibrate 145 mg 05/09/21 10:00 05/11/21 09:48 Tricor 145 Mg PO 06/08/21 09:59 145 mg DAILY MAHESH Administration Ceftriaxone Sodium/Dextrose 2 g in 50 mls @ 100 mls/hr 05/09/21 10:00 05/11/21 09:47 Rocephin 2 Gm-D5w 50ml Bag IV 05/13/21 09:59 100 mls/hr Q24H10 MAHESH Administration Insulin Human Lispro 0 unit 05/10/21 13:08 05/11/21 12:43 Humalog SQ 06/09/21 13:07 2 unit UD PRN Administration HYPERGLYCEMIA Lorazepam 1 mg 05/08/21 22:00 05/10/21 20:46 Ativan 1 Mg PO 06/07/21 21:59 1 mg HS MAHESH Administration Magnesium Hydroxide 30 - 60 ml 05/08/21 14:29 Milk Of Magnesia 30 Ml PO 06/07/21 14:28 QDP PRN CONSTIPATION Metformin HCl 500 mg 05/08/21 18:00 05/10/21 17:27 Glucophage 500 Mg PO 06/07/21 17:59 500 mg EVENING MEAL MAHESH Administration Methylprednisolone Sodium Succinate 40 mg 05/10/21 14:00 05/11/21 09:47 Solu-Medrol 40 Mg IV 06/09/21 13:59 40 mg Q12HT MAHESH Administration Miscellaneous Information 1 each 05/08/21 17:00 Medication Intervention MC 06/07/21 16:59 .RN TO CHECK [facility] Multivitamins/Minerals 1 tab 05/08/21 22:00 05/11/21 09:48 Ocuvite Tablet PO 06/07/21 21:59 1 tab BID MAHESH Administration Patient Own Medication 1 each 05/08/21 19:00 05/11/21 07:15 Patient Own Medication IH 06/07/21 18:59 1 each BIDRT MAHESH Administration Senna/Docusate Sodium 2 udtab 05/08/21 14:29 Senokot-S Tablet PO 06/07/21 14:28 BID PRN PRN CONSTIPATION Sterile Water 1 ml 05/10/21 14:00 05/11/21 09:47 Sterile H2o 10 Ml IJ 06/09/21 13:59 1 ml BID MAHESH Administration Discontinued Medications Generic Name Dose Route Start Last Admin Trade Name Freq PRN Reason Stop Dose Admin Albuterol Sulfate 4 puff 05/08/21 19:00 05/08/21 19:02 Ventolin Common Canister IH 06/07/21 18:59 2 puff QIDRT MAHESH Administration Albuterol Sulfate 4 puff 05/08/21 16:00 05/08/21 16:07 Ventolin Common Canister IH 06/07/21 15:59 4 puff Q4H PRN PRN Administration SHORTNESS OF BREATH/WHEEZING Albuterol/Ipratropium Confirm 05/10/21 05:48 Duoneb 0.5-3 Mg/3 Ml Neb Administered 05/10/21 05:49 Dose 3 ml IH .STK-MED ONE Enoxaparin Sodium 100 mg 05/08/21 12:17 05/08/21 12:36 Enoxaparin Sodium SQ 05/08/21 12:18 100 mg ONCE STA Administration Ceftriaxone Sodium/Dextrose 2 g in 50 mls @ 100 mls/hr 05/08/21 12:15 05/08/21 13:19 Rocephin 2 Gm-D5w 50ml Bag IV 05/08/21 12:44 Infused STAT STA Infusion Azithromycin 500 mg in 250 mls @ 250 mls/hr 05/08/21 12:15 05/08/21 13:39 Zithromax 500 Mg/ 250 Ml Nacl Premix IV 05/08/21 13:14 Infused STAT STA Infusion Azithromycin Confirm 05/08/21 12:30 Zithromax 500 Mg/ 250 Ml Nacl Premix Administered 05/08/21 12:31 Dose 500 mg in 250 mls @ ud IV .STK-MED ONE Ceftriaxone Sodium/Dextrose Confirm 05/08/21 12:30 Rocephin 2 Gm-D5w 50ml Bag Administered 05/08/21 12:31 Dose 2 g in 50 mls @ ud IV .STK-MED ONE Intake & Output (Last 24 hours) 05/09/21 05/10/21 05/11/21 05/12/21 11:59 11:59 11:59 11:59 Intake Total 660 955 830 480 Output Total 450 Balance 660 505 830 480 Weight 112 kg Orders (Last 24 hours) Category Date Time Status Methylprednisolone Sod Suc 40M [solu-MEDROL 40 MG] Med 05/10/21 14:00 Active 40 mg IV Q12HT Water For Injection,Sterile [Sterile H2O 10 ml] Med 05/10/21 14:00 Active 1 ml IJ BID EKG ROUTINE RT 05/11/21 05:00 Completed Code(s): J20.9 - ACUTE BRONCHITIS, UNSPECIFIED; J42 - UNSPECIFIED CHRONIC BRONCHITIS (6) Hypertensive CHF (congestive heart failure) Current Visit: Yes Status: Chronic Qualifiers: Heart failure type: combined systolic and diastolic Code(s): I11.0 - HYPERTENSIVE HEART DISEASE WITH HEART FAILURE
[2021-05-11] MEDS: Glucophage 500 MG PO SCH (17:43)
[2021-05-11] MEDS: ECOTRIN 81 MG PO SCH (20:15)
[2021-05-11] MEDS: Ativan 1 MG PO SCH (20:15)
[2021-05-12] MEDS: PATIENT OWN MEDICATION IH SCH ×2 (08:38→19:10)
[2021-05-12] MEDS: VENTOLIN COMMON CANISTER IH SCH ×4 (08:39→20:19)
[2021-05-12] MEDS: ELIQUIS 2.5 MG TABLET PO SCH ×2 (10:24→21:30)
[2021-05-12] MEDS: Calcium 500MG W/Vit D Tablet PO SCH ×2 (10:24→21:30)
[2021-05-12] MEDS: Cardizem CD 120 MG PO SCH (10:24)
[2021-05-12] MEDS: Sterile H2O 10 ml IJ SCH ×2 (10:25→21:30)
[2021-05-12] MEDS: Tessalon Perles 100 MG PO SCH ×4 (10:25→21:30)
[2021-05-12] MEDS: solu-MEDROL 40 MG IV SCH ×2 (10:25→21:30)
[2021-05-12] MEDS: Ocuvite Tablet PO SCH ×2 (10:25→21:30)
[2021-05-12] MEDS: ROCEPHIN 2 Gm-D5w 50ML BAG** 2 G/50 ML IVPB IV SCH (10:25)
[2021-05-12] MEDS: Tricor 145 MG PO SCH (10:25)
[2021-05-12] MEDS: Lexapro 10 MG PO SCH (10:25)
[2021-05-12] MEDS: Glucophage 500 MG PO SCH (17:28)
[2021-05-12] MEDS: HUMALOG SQ PRN ×2 (17:29→21:31)
[2021-05-12] MEDS: Ativan 1 MG PO SCH (21:30)
[2021-05-12] MEDS: ECOTRIN 81 MG PO SCH (21:30)
[2021-05-13 05:30] LABS: Absolute Neutrophil Ct (ANC) 12.01 (1.4-6.9); BASOPHIL % 0.2 % (0.0-0.4); Basophil (Absolute #) 0.02 (0-0.4); Eosinophil (Absolute #) 0 (0-0.5); Hematocrit 43.1 % (35-47); Hemoglobin 13.3 gm/dl (12.0-16.0); Lymphocyte (Absolute #) 0.55 (1.0-4.6); Lymphocytes % 4.2 % (24.0-44.0); Mean Cell Volume 96.6 fl (78-100); Mean Corpuscular Hemoglobin 29.8 pg (26-32); Mean Corpuscular Hgb Concent. 30.9 g/dl (32-36); Mean Platelet Volume 11.1 fl (7.5-11.0); Monocyte (Absolute #) 0.41 (0.0-1.3); Monocytes % 3.2 % (0.0-12.0); Neutrophil % 92.4 % (36.0-66.0); Platelet Count 270 K/mm3 (150-450); Red Blood Count 4.46 M/mm3 (4.1-5.4); Red Cell Distribution Width 13.9 % (11.5-14.0)
[2021-05-13 05:39] LABS: ALKALINE PHOSPHATASE 69 U/L (38-126); ANION GAP 11.1 MEQ/L (5-15); BLOOD UREA NITROGEN 35 mg/dL (7-17); CHLORIDE 95 mmol/L (98-107); Calcium 10.2 mg/dL (8.4-10.2); Carbon Dioxide 34 mmol/L (22-30); Creatinine 1 0.68 mg/dL (0.52-1.04); EST GLOMERULAR FILTRATION RATE > 60.0 ML/MIN; Glucose 220 mg/dL (74-106); Potassium 4.4 mmol/L (3.5-5.1); SGOT/AST 31 U/L (14-36); SGPT/ALT 17 U/L (0-35); SODIUM 136 mmol/L (137-145); Total Protein 7.3 g/dL (6.3-8.2)
[2021-05-13] MEDS: VENTOLIN COMMON CANISTER IH SCH ×4 (06:55→19:49)
[2021-05-13] MEDS: PATIENT OWN MEDICATION IH SCH ×2 (06:55→19:31)
[2021-05-13] MEDS: Cardizem CD 120 MG PO SCH (09:14)
[2021-05-13] MEDS: Lexapro 10 MG PO SCH (09:14)
[2021-05-13] MEDS: Calcium 500MG W/Vit D Tablet PO SCH ×2 (09:14→21:28)
[2021-05-13] MEDS: Ocuvite Tablet PO SCH ×2 (09:14→21:28)
[2021-05-13] MEDS: ELIQUIS 2.5 MG TABLET PO SCH ×2 (09:14→21:28)
[2021-05-13] MEDS: Tessalon Perles 100 MG PO SCH ×4 (09:15→21:28)
[2021-05-13] MEDS: solu-MEDROL 40 MG IV SCH ×2 (09:15→21:28)
[2021-05-13] MEDS: ROCEPHIN 2 Gm-D5w 50ML BAG** 2 G/50 ML IVPB IV SCH (09:15)
[2021-05-13] MEDS: Tricor 145 MG PO SCH (09:15)
[2021-05-13] MEDS: Sterile H2O 10 ml IJ SCH ×2 (09:15→21:28)
[2021-05-13] MEDS: HUMALOG SQ PRN ×3 (11:45→21:28)
--- NOTE | 2021-05-13 14:10 | XRAY ---
Indication: Short of breath. COPD. Comparison: May 08, 2021. Portable chest unchanged again demonstrated right hemidiaphragm elevation with right base discoid atelectasis/scarring, right base calcified granulomas, left mid to lower lung fibrosis/scarring, and borderline cardiomegaly. No new cardiopulmonary abnormalities.
--- NOTE | 2021-05-13 15:43 | ECHO ---
Transthoracic echocardiographic examination and color Doppler was done on 05/09/2021. INDICATION: Atrial flutter. IMPRESSION: 1) NO REGIONAL WALL MOTION ABNORMALITY. ESTIMATED GLOBAL LEFT VENTRICULAR EJECTION FRACTION OF AROUND 60%. 2) TRACE MITRAL REGURGITATION. 3) TRACE TRICUSPID REGURGITATION. RIGHT VENTRICULAR SYSTOLIC PRESSURE OF 33 MM OF MERCURY. 4) LEFT VENTRICULAR HYPERTROPHY. 5) LEFT ATRIAL ENLARGEMENT. 6) TRIVIAL PERICARDIAL EFFUSION. 7) LEFT VENTRICULAR DIASTOLIC DYSFUNCTION. The left ventricle is visualized and demonstrated adequate motion of all the segments. Estimated global left ventricular ejection fraction is 60%. There is mild left ventricular hypertrophy. The mitral valve is seen and this opens adequately. There is trace mitral regurgitation. The left atrium is mildly enlarged. The tissue Doppler study of the lateral mitral annulus is suggestive of left ventricular diastolic dysfunction. The aortic valve opens adequately. There is no significant gradient across the left ventricular outflow tract. The right side chambers are normal. There is trace tricuspid regurgitation. The right ventricular systolic pressure of 33 mm of Mercury. There is also trivial pericardial effusion and prominent epicardial fat.
[2021-05-13] MEDS: Glucophage 500 MG PO SCH (18:29)
--- NOTE | 2021-05-13 19:50 | PCM.NOTE ---
Date and Time: 05/13/211945 Subjective Assessment: doing better - Review of Systems Constitutional: No Fever, No Chills Eyes: No Symptoms Ears, Nose, & Throat: No Symptoms Respiratory: No Cough, No Short Of Breath Cardiac: No Chest Pain, No Edema, No Syncope Abdominal/Gastrointestinal: No Abdominal Pain, No Nausea, No Vomiting, No Diarrhea Genitourinary Symptoms: No Dysuria Musculoskeletal: No Back Pain, No Neck Pain Skin: No Rash Neurological: No Dizziness, No Focal Weakness, No Sensory Changes Psychological: No Symptoms Endocrine: No Symptoms Hematologic/Lymphatic: No Symptoms Immunological/Allergic: No Symptoms Objective Exam General Appearance: no apparent distress, alert Neurologic Exam: alert, oriented x 3, cooperative, normal mood/affect, nml cerebellar function, sensation nml, No motor deficits Skin Exam: normal color, warm, dry Eye Exam: PERRL, EOMI, eyes nml inspection Ears, Nose, Throat Exam: normal ENT inspection, pharynx normal, moist mucous membranes Neck Exam: normal inspection, non-tender, supple, full range of motion Respiratory Exam: normal breath sounds, lungs clear, No respiratory distress Cardiovascular Exam: regular rate/rhythm, normal heart sounds Gastrointestinal/Abdomen Exam: soft, No tenderness, No mass Extremity Exam: normal inspection, normal range of motion Back Exam: normal inspection, normal range of motion, No CVA tenderness, No vertebral tenderness Pelvic Exam: deferred Rectal Exam: deferred OBJECTIVE DATA Vital Signs: Vital Signs - 24 hr Temp Pulse Resp BP Pulse Ox 05/13/21 19:33 78 20 92 L 05/13/21 15:00 98.3 F 65 20 137/63 96 05/13/21 11:11 77 18 94 L 05/13/21 10:56 97.9 F 63 22 123/68 95 05/13/21 07:00 97.8 F 91 H 24 113/80 92 L 05/13/21 06:55 97 H 18 87 L 05/13/21 03:00 60 22 164/72 93 L 05/12/21 23:00 96.7 F 62 20 143/79 95 Pain Assessment - Last Documented Pain Intensity 0 Pain Scale Used 0-10 Pain Scale Intake and Output: Intake & Output 05/11/21 05/12/21 05/13/21 05/14/21 11:59 11:59 11:59 11:59 Intake Total 830 1940 1480 600 Balance 830 1940 1480 600 Lab Results: Lab Results-Last 24 Hours 05/13/21 05/13/21 Range/Units 04:10 04:10 WBC 13.0 H (4.0-10.5) K/mm3 RBC 4.46 (4.1-5.4) M/mm3 Hgb 13.3 (12.0-16.0) gm/dl Hct 43.1 (35-47) % MCV 96.6 (78-100) fl MCH 29.8 (26-32) pg MCHC 30.9 L (32-36) g/dl RDW 13.9 (11.5-14.0) % Plt Count 270 (150-450) K/mm3 MPV 11.1 H (7.5-11.0) fl Gran % 92.4 H (36.0-66.0) % Eos # (Auto) 0 (0-0.5) Absolute Lymphs (auto) 0.55 L (1.0-4.6) Absolute Monos (auto) 0.41 (0.0-1.3) Lymphocytes % 4.2 L (24.0-44.0) % Monocytes % 3.2 (0.0-12.0) % Eosinophils % 0.0 (0.00-5.0) % Basophils % 0.2 (0.0-0.4) % Absolute Granulocytes 12.01 H (1.4-6.9) Basophils # 0.02 (0-0.4) Sodium 136 L (137-145) mmol/L Potassium 4.4 (3.5-5.1) mmol/L Chloride 95 L (98-107) mmol/L Carbon Dioxide 34 H (22-30) mmol/L Anion Gap 11.1 (5-15) MEQ/L BUN 35 H (7-17) mg/dL Creatinine 0.68 (0.52-1.04) mg/dL Estimated GFR > 60.0 ML/MIN Glucose 220 H (74-106) mg/dL Calcium 10.2 (8.4-10.2) mg/dL Total Bilirubin 0.50 (0.2-1.3) mg/dL AST 31 (14-36) U/L ALT 17 (0-35) U/L Alkaline Phosphatase 69 (38-126) U/L Serum Total Protein 7.3 (6.3-8.2) g/dL Albumin 4.0 (3.5-5.0) g/dL Radiology Exams: Radiology Procedures Category Date Time Status CHEST 1 VIEW (PORTABLE) Urgent Exams 05/13/21 13:24 Completed Multi-Disciplinary Progress Notes: Multi-Disciplinary Progress Notes 05/13/21 11:14 Physical Therapy Note by Bri Aponte 9:40 - 10:10 PT. IN CHAIR UPON P.T. ARRIVAL TO ROOM. REPORTS NO C/O PN BUT STATES SHE STILL HAS SIGNIFICANT COUGH AND WHEEZING. PT. ON 3L O2 AND IV IN PLACE. O2 SATS 94% AT REST ON 3 L VIA NC. PT. AGREEABLE TO PT. AMBULATED TO BATHROOM W/ O2 MOD I. ABLE TO PERFORM COMMODE TRANSFER AD HYGIENE INDEPENDENTLY. PT. PERFORMED SEATED LE EX'S W/ 1# CUFF WEIGHT OF LAQS, MARCHES, AND ANKLE PUMPS. PT. AMBULATED 100' ON 3 L O2 SBA. STOPPED AT 50' HILARY TO BREATH AND CHECK SATS. O2 SATS 87% AT 50'. INCREASED O2 O 4L AND O2 SATS 89-90%. PT. COMPLETED WALK AND O2 SATS WERE 88% UPON RETURN TO SITTING. AUDIBLE WHEEZE NOTED AFTER AMBULATING. O2 SATS INCREASED TO 93% AND PT. PLACED BACK ON 3L ON ROOM O2. RECOMMEND CONT. PT VIA [facility] SETTING UPON D/C TO INCREASE ENDURANCE AND ACTIVITY TOLERANCE TO ACHIEVE PLOF. WILL CONT. P.T. UNTIL D/C. Initialized on 05/13/21 11:14 - END OF NOTE 05/13/21 09:15 Case Management Note by Dorcas Rodas S/W PATIENT THIS AM ABOUT REHAB STAY. PATIENT REPORTS THIS WAS A MISCOMMUNICATION. SHE DOES NOT WANT TO GO TO REHAB AT TIME OF DC. SHE DOES HOWEVER WANT OUTPT PHYSICAL THERAPY AT TIME OF DC. SHE STATES SHE HAS A DAUGHTER THAT CAN TAKE HER. SHE WAS OFFERED C BUT REFUSED.SHE PLANS TO RETURN TO HER STOVALL AT TIME OF DC. PATIENT ANXIOUS ABOUT GOING HOME TOO EARLY. PATIENT REASSURED THAT SOME SYMPTOMS SUCH THE COUGH COULD LINGER. SHE WAS RELUCTANT TO UNDERSTAND- WILL NEE REASSURANCE AND SUPPORT Initialized on 05/13/21 09:15 - END OF NOTE 05/13/21 08:06 Respiratory Note by Alyssa Bailey 0655 PT ON ROOM AIR AT REST WITH SAT 87%. PLACED ON 3LPM NC. SAT 92% ON 3LPM NC Initialized on 05/13/21 08:06 - END OF NOTE Assessment/Plan (1) Pneumonia Current Visit: Yes Status: Acute Qualifiers: Pneumonia type: due to unspecified organism Laterality: left Lung location: lower lobe of lung Qualified Code(s): J18.9 - Pneumonia, unspecified organism Assessment & Plan: improving Code(s): J18.9 - PNEUMONIA, UNSPECIFIED ORGANISM (2) Atrial flutter Current Visit: Yes Status: Acute Qualifiers: Atrial flutter type: atypical Qualified Code(s): I48.4 - Atypical atrial flutter Assessment & Plan: stable Code(s): I48.92 - UNSPECIFIED ATRIAL FLUTTER (3) Cough Current Visit: Yes Status: Resolved Code(s): R05 - COUGH (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
[2021-05-13] MEDS: Ativan 1 MG PO SCH (21:28)
[2021-05-13] MEDS: ECOTRIN 81 MG PO SCH (21:28)
[2021-05-14] MEDS: DUONEB 0.5-3 MG/3 ml Neb IH PRN (07:00)
[2021-05-14] MEDS ORDERED: DUONEB 0.5-3 MG/3 ml Neb IH ONE (07:42)
[2021-05-14] MEDS: PATIENT OWN MEDICATION IH SCH ×3 (08:16→20:17)
[2021-05-14] MEDS: VENTOLIN COMMON CANISTER IH SCH ×4 (08:19→19:03)
[2021-05-14] MEDS: Ocuvite Tablet PO SCH ×2 (09:08→21:38)
[2021-05-14] MEDS: ELIQUIS 2.5 MG TABLET PO SCH ×2 (09:08→21:38)
[2021-05-14] MEDS: Sterile H2O 10 ml IJ SCH ×2 (09:08→21:38)
[2021-05-14] MEDS: Lexapro 10 MG PO SCH (09:08)
[2021-05-14] MEDS: Calcium 500MG W/Vit D Tablet PO SCH ×2 (09:08→21:40)
[2021-05-14] MEDS: solu-MEDROL 40 MG IV SCH ×2 (09:08→21:38)
[2021-05-14] MEDS: Tessalon Perles 100 MG PO SCH ×4 (09:08→21:38)
[2021-05-14] MEDS: Tricor 145 MG PO SCH (09:08)
[2021-05-14] MEDS: Cardizem CD 120 MG PO SCH (09:08)
[2021-05-14] MEDS: ROCEPHIN 2 Gm-D5w 50ML BAG** 2 G/50 ML IVPB IV SCH (09:08)
--- NOTE | 2021-05-14 09:08 | XRAY ---
Indication: Pneumonia. Comparison: One day earlier. PA/lateral chest obtained. Lateral view limited by respiration artifact even with repeat. Grossly stable right hemidiaphragm elevation, right base atelectasis/scarring, right base calcified granulomas, left mid to lower lung fibrosis/scarring, and borderline cardiomegaly. No new cardiopulmonary abnormalities.
[2021-05-14] MEDS: Glucophage 500 MG PO SCH (16:43)
[2021-05-14] MEDS: HUMALOG SQ PRN (16:55)
[2021-05-14] MEDS ORDERED: Advair Hfa 115/21 Common canister IH SCH (19:00)
[2021-05-14 20:18] LABS: Absolute Neutrophil Ct (ANC) 12.09 (1.4-6.9); BASOPHIL % 0.2 % (0.0-0.4); Basophil (Absolute #) 0.03 (0-0.4); Eosinophil (Absolute #) 0 (0-0.5); Hematocrit 42.6 % (35-47); Hemoglobin 13.9 gm/dl (12.0-16.0); Lymphocyte (Absolute #) 0.58 (1.0-4.6); Lymphocytes % 4.2 % (24.0-44.0); Mean Cell Volume 94.2 fl (78-100); Mean Corpuscular Hemoglobin 30.8 pg (26-32); Mean Corpuscular Hgb Concent. 32.6 g/dl (32-36); Mean Platelet Volume 10.9 fl (7.5-11.0); Monocyte (Absolute #) 1.04 (0.0-1.3); Monocytes % 7.6 % (0.0-12.0); Platelet Count 274 K/mm3 (150-450); Red Blood Count 4.52 M/mm3 (4.1-5.4); White Blood Count 13.7 K/mm3 (4.0-10.5)
[2021-05-14] MEDS: ECOTRIN 81 MG PO SCH (21:39)
[2021-05-14] MEDS: Ativan 1 MG PO SCH ×2 (21:40→22:02)
--- NOTE | 2021-05-15 08:24 | PCM.NOTE ---
Date and Time: 05/14/21822 Subjective Assessment: doing better - Review of Systems Constitutional: No Fever, No Chills Eyes: No Symptoms Ears, Nose, & Throat: No Symptoms Respiratory: No Cough, No Short Of Breath Cardiac: No Chest Pain, No Edema, No Syncope Abdominal/Gastrointestinal: No Abdominal Pain, No Nausea, No Vomiting, No Diarrhea Genitourinary Symptoms: No Dysuria Musculoskeletal: No Back Pain, No Neck Pain Skin: No Rash Neurological: No Dizziness, No Focal Weakness, No Sensory Changes Psychological: No Symptoms Endocrine: No Symptoms Hematologic/Lymphatic: No Symptoms Immunological/Allergic: No Symptoms Objective Exam General Appearance: no apparent distress, alert Neurologic Exam: alert, oriented x 3, cooperative, normal mood/affect, nml cerebellar function, sensation nml, No motor deficits Skin Exam: normal color, warm, dry Eye Exam: PERRL, EOMI, eyes nml inspection Ears, Nose, Throat Exam: normal ENT inspection, pharynx normal, moist mucous membranes Neck Exam: normal inspection, non-tender, supple, full range of motion Respiratory Exam: normal breath sounds, lungs clear, No respiratory distress Cardiovascular Exam: regular rate/rhythm, normal heart sounds Gastrointestinal/Abdomen Exam: soft, No tenderness, No mass Extremity Exam: normal inspection, normal range of motion Back Exam: normal inspection, normal range of motion, No CVA tenderness, No vertebral tenderness Pelvic Exam: deferred Rectal Exam: deferred OBJECTIVE DATA Vital Signs: Vital Signs - 24 hr Temp Pulse Resp BP Pulse Ox 05/15/21 03:00 96.7 F 61 19 157/72 94 L 05/14/21 23:00 97.1 F 62 18 124/60 97 05/14/21 19:03 72 19 94 L 05/14/21 19:00 97.6 F 64 20 146/67 93 L 05/14/21 15:00 97.2 F 64 19 143/84 95 05/14/21 14:57 68 16 94 L 05/14/21 11:00 96.0 F 69 22 161/75 93 L 05/14/21 10:41 65 16 93 L Pain Assessment - Last Documented Pain Intensity 0 Pain Scale Used 0-10 Pain Scale Intake and Output: Intake & Output 05/12/21 05/13/21 05/14/21 05/15/21 11:59 11:59 11:59 11:59 Intake Total 1940 1480 1080 1800 Output Total 500 Balance 1940 1480 1080 1300 Lab Results: Lab Results-Last 24 Hours 05/14/21 Range/Units 19:34 WBC 13.7 H (4.0-10.5) K/mm3 RBC 4.52 (4.1-5.4) M/mm3 Hgb 13.9 (12.0-16.0) gm/dl Hct 42.6 (35-47) % MCV 94.2 (78-100) fl MCH 30.8 (26-32) pg MCHC 32.6 (32-36) g/dl RDW 14.0 (11.5-14.0) % Plt Count 274 (150-450) K/mm3 MPV 10.9 (7.5-11.0) fl Gran % 88.0 H (36.0-66.0) % Eos # (Auto) 0 (0-0.5) Absolute Lymphs (auto) 0.58 L (1.0-4.6) Absolute Monos (auto) 1.04 (0.0-1.3) Lymphocytes % 4.2 L (24.0-44.0) % Monocytes % 7.6 (0.0-12.0) % Eosinophils % 0.0 (0.00-5.0) % Basophils % 0.2 (0.0-0.4) % Absolute Granulocytes 12.09 H (1.4-6.9) Basophils # 0.03 (0-0.4) Radiology Exams: Radiology Procedures Category Date Time Status CHEST 1 VIEW (PORTABLE) Urgent Exams 05/13/21 13:24 Completed CHEST 2 VIEWS (PA AND LAT) Routine Exams 05/14/21 07:10 Completed Multi-Disciplinary Progress Notes: Multi-Disciplinary Progress Notes 05/14/21 19:08 Respiratory Note by Kezia Butler THE PT'S HOME WIXELA DPI WAS EMPTY AND I COULD NOT GIVE THE PT HER EVENING DOSE. ADVAIR COMMON CANISTER 115/21 WAS SUBSTITUTED FOR THE WIXELA AT THIS TIME, AND AN ORDER FOR THIS WAS WRITTEN PER [facility]. Initialized on 05/14/21 19:08 - END OF NOTE 05/14/21 13:00 (created 05/14/21 13:57) Case Management Note by Lora Melgar DR CALLED [facility] PT'S SON. ALSO, ROUNDED AND EVALUATED, AND HAD LONG DISCUSSION ABOUT ASSISTED LIVING WITH PT. PT WAS INSISTENT THAT SHE DID NOT WANT TO GO TO ASSISTED LIVING, BUT TOWARDS THE END OF THE CONVERSATION SHE HAS SOFTENED TO THE IDEA. DR. MURPHY DISCUSSED THAT PT'S SON IS COMING FOR A FEW DAYS, SHE WOULD DISCHARGE HOME WITH [facility] LIKELY TOMORROW, AND THAT SHE AND HER FAMILY CAN DISCUSS ASSISTED LIVING AND MAKE ARRANGEMENTS IF THEY SO DESIRED. PT REPORTS THAT SHE HAS CHOSEN [facility]. WILL MAKE REFERRAL PER MD ORDER. NO OTHER NEEDS IDENTIFIED AT PRESENT TIME. WILL CONT TO FOLLOW FOR ALL DC NEEDS. Initialized on 05/14/21 13:57 - END OF NOTE 05/14/21 11:20 Case Management Note by Dorcas Rodas PATIENT GIVEN LIST OF [facility] FAMILY IS CONSIDERING THIS AT TIME OF DC- PATIENT ACCEPTING OF LIST Initialized on 05/14/21 11:20 - END OF NOTE 05/14/21 10:58 Physical Therapy Note by Bri Aponte PT. REPORTS SHE IS FEELING BETTER; NOTES SHE SLEPT WELL AND HAS BEEN COUGHING LESS. O2 SATS 94% AT REST IN CHAIR ON 2 L O2. PT. PERFORMED SEATED LES EX'S W/ 1# CUFF WEIGHT OF LAQS, MARCHES, AND ANKLE PUMPS X 10 REPS. AMBULATED 125' ON 2 L O2 W/ SBA. PT. STOPPED AT ~ 65' TO STAND TO REST AND CHECK SAT. O2 ALETHEA DECREASED TO 87% BUT RECIVERED TO 91% IN 1 MIN W/ PURSED LIP BREATHING. PT. ABLE TO COMPLETE REMAINDER OF WALK; RESTED IN CHAIR W/ O2 SATS 86% ON 2L BUT RECOVERED TO 91% IN ~ 1-2 MINS. NO AUDIBLE WHEEZING NOTED TODAY W/ EXERTION. PT. ALSO ABLE TO PERFORM STANDING LE EX'S OF CALF RAISES, MARCHES, MINI SQUATS, AND HIP ABD X 5-10 REPS W/ SUPPORT OF WALKER W/ O2 SATS ~91-94% ON 2L. NOTABLE PROGRESS W/ ACTIVITY TOLERANCE WELL ABILITY TO RECOVER TODAY. RECOMMEND D/C HOME W/ HHC WHEN STABLE. 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
[2021-05-15] MEDS: VENTOLIN COMMON CANISTER IH SCH ×2 (08:50→10:37)
[2021-05-15] MEDS: Tricor 145 MG PO SCH (10:33)
[2021-05-15] MEDS: ELIQUIS 2.5 MG TABLET PO SCH (10:34)
[2021-05-15] MEDS: Ocuvite Tablet PO SCH (10:35)
[2021-05-15] MEDS: Tessalon Perles 100 MG PO SCH ×2 (10:35→15:16)
[2021-05-15] MEDS: Calcium 500MG W/Vit D Tablet PO SCH (10:36)
[2021-05-15] MEDS: Lexapro 10 MG PO SCH (10:36)
[2021-05-15] MEDS: Cardizem CD 120 MG PO SCH (10:37)
[2021-05-15] MEDS: solu-MEDROL 40 MG IV SCH (10:39)
[2021-05-15] MEDS: Sterile H2O 10 ml IJ SCH (10:41)
[2021-05-15] MEDS: DUONEB 0.5-3 MG/3 ml Neb IH PRN (10:50)
[2021-05-15 13:15] VITALS: BP 137/65; PULSE 65; O2SAT 95
--- NOTE | 2021-05-15 21:10 | PCM.DS ---
Discharge Summary Date of Admission: 05/08/21 14:26 Admitting Physician: BING MURPHY Consults: Consults on Case 05/09/21 12:20 Consult Cardiology ROUTINE Primary Care Provider: BING MURPHY Allergies Allergies No Known Drug Allergies Allergy (Verified 05/08/21 10:34) Hospital Summary - Hospital Course Hospital Course: Chief Complaint Diagnosis PNEUMONIA Allergies Allergy/AdvReac Type Severity Reaction Status Date / Time No Known Drug Allergies Allergy Verified 05/08/21 10:34 Vital Signs (Last 24 hours) Temp Pulse Resp BP Pulse Ox 05/15/21 11:00 97.1 F 65 20 137/65 95 05/15/21 10:50 126 H 30 H 80 L 05/15/21 10:39 63 18 92 L 05/15/21 08:51 86 18 94 L 05/15/21 07:00 96.0 F 64 20 176/79 95 05/15/21 03:00 96.7 F 61 19 157/72 94 L 05/14/21 23:00 97.1 F 62 18 124/60 97 Home Medications Medication Instructions Recorded Confirmed Last Taken Type Vit C/E/Zn/Coppr/Lutein/Zeaxan 1 cap PO BID 05/08/21 05/08/21 05/08/21 History [Preservision Areds 2 Softgel] Apixaban [Eliquis 2.5 mg Tablet] 5 mg PO BID #60 tablet 05/15/21 Unknown Rx Calcium Carbonate/Vitamin D3 1 each PO BID #0 05/15/21 05/08/21 05/07/21 21:00 Rx [Calcium 500 + Vit D 200 Tablet] Diltiazem HCl 120 mg [Cardizem 120 mg PO DAILY #30 05/15/21 Unknown Rx CD 120 MG] Fluticasone/Salmeterol 2 puff IH BIDRT 05/15/21 Unknown Rx [Advair Hfa Common canister*] Methylprednisolone Packet 4 mg PO UD #30 packet 05/15/21 Unknown Rx [Medrol Dosepack] cephALEXin [Cephalexin] 500 mg PO QID #20 tablet 05/15/21 Unknown Rx Current Medications Discontinued Medications Generic Name Dose Route Start Last Admin Trade Name Freq PRN Reason Stop Dose Admin Acetaminophen 650 mg 05/08/21 14:29 05/10/21 10:14 Tylenol 325 Mg PO 06/07/21 14:28 650 mg Q4H PRN PRN Administration PAIN AND/OR FEVER Al Hydrox/Mg Hydrox/Simethicone 30 ml 05/08/21 14:29 Maalox Es 30 Ml Unit Dose PO 06/07/21 14:28 Q4H PRN PRN INDIGESTION Albuterol Sulfate 4 puff 05/08/21 19:00 05/08/21 19:02 Ventolin Common Canister IH 06/07/21 18:59 2 puff QIDRT MAHESH Administration Albuterol Sulfate 4 puff 05/08/21 16:00 05/08/21 16:07 Ventolin Common Canister IH 06/07/21 15:59 4 puff Q4H PRN PRN Administration SHORTNESS OF BREATH/WHEEZING Albuterol Sulfate 2 puff 05/09/21 07:00 05/15/21 10:37 Ventolin Common Canister IH 06/08/21 06:59 2 puff QIDRT MAHESH Administration Albuterol Sulfate 2 puff 05/08/21 21:21 Ventolin Common Canister IH 06/07/21 21:20 Q4H PRN PRN SHORTNESS OF BREATH/WHEEZING Albuterol/Ipratropium Confirm 05/10/21 05:48 Duoneb 0.5-3 Mg/3 Ml Neb Administered 05/10/21 05:49 Dose 3 ml IH .STK-MED ONE Albuterol/Ipratropium Confirm 05/14/21 07:42 Duoneb 0.5-3 Mg/3 Ml Neb Administered 05/14/21 07:43 Dose 3 ml IH .STK-MED ONE Albuterol/Ipratropium 3 ml 05/14/21 07:00 05/15/21 10:50 Duoneb 0.5-3 Mg/3 Ml Neb IH 06/13/21 06:59 3 ml Q4HPRN PRN Administration SHORTNESS OF BREATH/WHEEZING Apixaban 5 mg 05/09/21 13:00 05/15/21 10:34 Eliquis 2.5 Mg Tablet PO 06/08/21 12:59 5 mg BID MAHESH Administration Aspirin 81 mg 05/08/21 22:00 05/14/21 21:39 Ecotrin 81 Mg PO 06/07/21 21:59 81 mg HS MAHESH Administration Benzonatate 100 mg 05/08/21 22:00 05/15/21 15:16 Tessalon Perles 100 Mg PO 06/07/21 21:59 100 mg QID MAHESH Administration Calcium Carbonate 1 tab 05/08/21 22:00 05/15/21 10:36 Calcium 500mg W/Vit D Tablet PO 06/07/21 21:59 1 tab BID MAHESH Administration Diltiazem HCl 120 mg 05/09/21 13:00 05/15/21 10:37 Cardizem Cd 120 Mg PO 06/08/21 12:59 120 mg DAILY MAHESH Administration Enoxaparin Sodium 100 mg 05/08/21 12:17 05/08/21 12:36 Enoxaparin Sodium SQ 05/08/21 12:18 100 mg ONCE STA Administration Escitalopram Oxalate 20 mg 05/09/21 10:00 05/15/21 10:36 Lexapro 10 Mg PO 06/08/21 09:59 20 mg DAILY MAHESH Administration Fenofibrate 145 mg 05/09/21 10:00 05/15/21 10:33 Tricor 145 Mg PO 06/08/21 09:59 145 mg DAILY MAHESH Administration Ceftriaxone Sodium/Dextrose 2 g in 50 mls @ 100 mls/hr 05/08/21 12:15 05/08/21 13:19 Rocephin 2 Gm-D5w 50ml Bag IV 05/08/21 12:44 Infused STAT STA Infusion Azithromycin 500 mg in 250 mls @ 250 mls/hr 05/08/21 12:15 05/08/21 13:39 Zithromax 500 Mg/ 250 Ml Nacl Premix IV 05/08/21 13:14 Infused STAT STA Infusion Azithromycin Confirm 05/08/21 12:30 Zithromax 500 Mg/ 250 Ml Nacl Premix Administered 05/08/21 12:31 Dose 500 mg in 250 mls @ ud IV .STK-MED ONE Ceftriaxone Sodium/Dextrose Confirm 05/08/21 12:30 Rocephin 2 Gm-D5w 50ml Bag Administered 05/08/21 12:31 Dose 2 g in 50 mls @ ud IV .STK-MED ONE Ceftriaxone Sodium/Dextrose 2 g in 50 mls @ 100 mls/hr 05/09/21 10:00 05/14/21 09:08 Rocephin 2 Gm-D5w 50ml Bag IV 05/15/21 09:59 100 mls/hr Q24H10 MAHESH Administration Insulin Human Lispro 0 unit 05/10/21 13:08 05/14/21 16:55 Humalog SQ 06/09/21 13:07 4 unit UD PRN Administration HYPERGLYCEMIA Lorazepam 1 mg 05/08/21 22:00 05/14/21 22:02 Ativan 1 Mg PO 06/07/21 21:59 1 mg HS MAHESH Administration Magnesium Hydroxide 30 - 60 ml 05/08/21 14:29 Milk Of Magnesia 30 Ml PO 06/07/21 14:28 QDP PRN CONSTIPATION Metformin HCl 500 mg 05/08/21 18:00 05/14/21 16:43 Glucophage 500 Mg PO 06/07/21 17:59 500 mg EVENING MEAL MAHESH Administration Methylprednisolone Sodium Succinate 40 mg 05/10/21 14:00 05/15/21 10:39 Solu-Medrol 40 Mg IV 06/09/21 13:59 40 mg Q12HT MAHESH Administration Miscellaneous Information 1 each 05/08/21 17:00 Medication Intervention 06/07/21 16:59 .RN TO CHECK MAHESH Multivitamins/Minerals 1 tab 05/08/21 22:00 05/15/21 10:35 Ocuvite Tablet PO 06/07/21 21:59 1 tab BID MAHESH Administration Patient Own Medication 1 each 05/08/21 19:00 05/14/21 20:17 Patient Own Medication 06/07/21 18:59 Not Given BIDRT MAHESH Fluticasone/Salmeterol 2 puff 05/14/21 19:00 05/14/21 19:03 Advair Hfa 115/21 Common Canister* 06/13/21 18:59 2 puff BIDRT MAHESH Administration Senna/Docusate Sodium 2 udtab 05/08/21 14:29 Senokot-S Tablet PO 06/07/21 14:28 BID PRN PRN CONSTIPATION Sterile Water 1 ml 05/10/21 14:00 05/15/21 10:41 Sterile H2o 10 Ml IJ 06/09/21 13:59 1 ml BID MAHESH Administration Intake & Output (Last 24 hours) 05/13/21 05/14/21 05/15/21 05/16/21 11:59 11:59 11:59 11:59 Intake Total 1480 1080 2040 240 Output Total 500 Balance 1480 1080 1540 240 Orders (Last 24 hours) Category Date Time Status Discharge Planning,Consult Routine Discharge 05/15/21 Active Discharge Routine Discharge 05/15/21 Ordered Discharge/Telephone Order Routine Discharge 05/15/21 Active Qualify for Home Oxygen TODAY RT 05/15/21 08:48 Completed Patient Care Notes (Last 24 hours) 05/15/21 16:21 Nursing Note by Ayse Pierre I faxed patients chart [facility] [phone] and called to let them know she was headed home. Initialized on 05/15/21 16:21 - END OF NOTE 05/15/21 12:22 Nursing Note by Lois Serra 1045-Pt sitting in bedside recliner and while taking morning Calcium pill, pt began choking. Pt was able to continue to cough. Skin color rapidly deteriorated. Another RN summoned to room as well as respiratory therapy. Pt continued to be able to cough. Oxygen increased. Cough gradually became stronger and pt able to speak 2-3 words at a time. RT administered nebulizer treatment. Staff with patient until return to baseline. 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 PATIENT WILL DC HOME WITH OXYGEN WHILE AWAKE AND HOME HEALTHCARE HAS BEEN ARRANGED. SHE DENIES ANY OTHER NEEDS REGARDING DC AT THIS TIME. Initialized on 05/15/21 11:52 - END OF NOTE 05/15/21 11:32 Case Management Note by Dorcas Rodas [facility] HAS ACCEPTED PATIENT.THEY WILL NEED NOTIFIED WHEN PATIENT DISCHARGES HOME AT [phone]. THEY WILL NEED FAXED THE DC INSTRUCTIONS, DC MED LIST AND DC SUMMARY (IF AVAILABLE) TO [phone] Initialized on 05/15/21 11:32 - END OF NOTE 05/15/21 11:30 Case Management Note by Dorcas Rodas OXYGEN ORDER UPDATED THRU [facility] D/T PATIENT DESATING WHEN WALKING. ORDER NOW FOR 3L/NC WHILE AWAKE Initialized on 05/15/21 11:30 - END OF NOTE 05/15/21 11:18 Respiratory Note by Tiffanie Gutierrez RT assisted with patient that appeared to be choking on a pill. Patient became cyanotic and unable to take adequate breaths. Increased oxygen to 6L NC. SpO2 at that time 80%. Patient was able to clear airway with coughing. SVN given due to audible wheezes. Patient reported improvement. No apparent distress after treatment. Patient recovered fully. Initialized on 05/15/21 11:18 - END OF NOTE 05/15/21 10:27 Physical Therapy Note by Bri Aponte PT. IS ANXIOUS TO GO HOME TODAY. PT. REPORTS SHE SLEPT FAIRLY WELL. NO C/O PN. SITTING IN CHAIR UPON P.T. ARRIVAL TO ROOM. O2 SATS 95 AT REST ON RA. PT. NEEDED TO USE THE RESTROOM BEFORE WALKING. PROCEEDED TO REMOVE HER CANNULA AND STATE SHE DIDN'T NEED IT TO USE THE RESTROOM. PT. VOIDED AND THEN WAS WHEEZING AND SOB. NEEDED TO SIT IN CHAIR O2 SAST 85%. INFORMED PT. THAT THIS IS WHY SHE NEEDED TO WEAR O2 ALL OF THE TIME SINCE O2 SATS ARE NOT MAINTAINING WHERE THEY NEED TO BE. PT. RESTED W/ 2L IN PLACE AND O2 SATS BACK TO 94% BEFORE WALKING. PT. AMBULATED 150' W/ 2 L O2 RESTED AT 75' TO BREATH AND CJESK O2 SATS. SATS [address]; INCREASED O2 TO 3 L AND O2 SATS INCREASED TO 91% W/ INCREASED O2, STANDING REST, AND V.C. TO BREATHE PROPERLY. NOTED INCREASED AUDIBLE WHEEZING AGAIN TODAY W/ EXERTION. UPON RETURN TO ROOM AND SITTING, PT'S O2 SATS WERE 85% RECOVERED IN ~ 1 ' TO 93% ON 3L. ADVISED PT. TO WEAR O2 AND TAKE SHORT, FREQUENT WALKS THROUGHOUT THE DAY WHEN SHE GETS HOME. SON TO COME IN TOWN TODAY TO ASSIST W/ TRANSITION HOME AND THEN POSSIBLY TO ASSISTED LIVING. PLAN IS FOR D/C TODAY. Initialized on 05/15/21 10:27 - END OF NOTE 05/15/21 10:17 Case Management Note by Dorcas Rodas HOME OXYGEN SET UP SENT VIA [facility] AT THIS TIME Initialized on 05/15/21 10:17 - END OF NOTE 05/15/21 09:37 Respiratory Note by Tiffanie Gutierrez SpO2 on Room Air at rest 86%. SpO2 on 2L at rest 92% Initialized on 05/15/21 09:37 - END OF NOTE - Vitals & Intake/Output Vital Signs: Vital Signs Temperature 97.1 F 05/15/21 11:00 Pulse Rate 65 05/15/21 11:00 Respiratory Rate 20 05/15/21 11:00 Blood Pressure 137/65 05/15/21 11:00 O2 Sat by Pulse Oximetry 95 05/15/21 11:00 Intake & Output: Intake & Output 05/13/21 05/14/21 05/15/21 05/16/21 11:59 11:59 11:59 11:59 Intake Total 1480 1080 2040 240 Output Total 500 Balance 1480 1080 1540 240 - Lab Result Diagrams: 05/14/21 19:34 05/13/21 04:10 - Radiology Exams Ordered Rad Exams-Entire Visit: Radiology Procedures Category Date Time Status CHEST 2 VIEWS (PA AND LAT) Routine Exams 05/14/21 07:10 Completed - Procedures and Test Procedures and Tests throughout Hospitalization: Therapy Orders & Screens 05/08/21 15:37 RT Screen per Nursing Assess ONCE Comment: Protocol Order Physician Instructions: Greater than 3 points order RT Admission Screen Reason For Exam: Triggered on Admission Diagnosis: Atrial flutter Diagnosis: Atrial flutter Pneumonia: Yes Home O2: Yes Asthma: No CHF: No Home CPAP/BIPAP: Yes Home Nebs/MDI: Yes Total Points: 18 05/08/21 16:10 Oxygen Nasal Cannula 2 lpm Comment: Diagnosis: Atrial flutter Respiratory Therapy Assessment DAILY Comment: Diagnosis: Atrial flutter 05/08/21 16:11 BiPap/CPAP ROUTINE Comment: as per home settings Diagnosis: Atrial flutter 05/08/21 19:47 EKG ROUTINE Comment: Diagnosis: Atrial flutter 05/09/21 05:00 EKG ROUTINE Comment: Diagnosis: Atrial flutter 05/09/21 07:00 Respiratory MDI BID Comment: JOSELINE BID-PT OWN MED Diagnosis: Atrial flutter 05/09/21 13:06 Qualify for Home Oxygen ROUTINE Comment: Diagnosis: Atrial flutter 05/10/21 05:00 EKG UD Comment: Diagnosis: Atrial flutter 05/10/21 12:37 PT Eval & Treat (MD Order) ONCE Reason for Eval:: GENERALIZED WEAKNESS R/T PNEUMONIA Diagnosis: PNEUMONIA 05/10/21 12:38 RT Miscellaneous Order ROUTINE Comment: Physician Instructions: Reason For Exam: WEAN OXYGEN TOLERATED Diagnosis: PNEUMONIA 05/11/21 05:00 EKG ROUTINE Comment: Diagnosis: Atrial flutter 05/13/21 09:42 PT Eval & Treat (MD Order) ONCE Reason for Eval:: WEAKNESS Diagnosis: PNEUMONIA 05/15/21 08:48 Qualify for Home Oxygen TODAY Comment: Diagnosis: PNEUMONIA Discharge Exam General Appearance: no apparent distress, alert Neurologic Exam: alert, oriented x 3, cooperative, normal mood/affect, nml cerebellar function, sensation nml, No motor deficits Eye Exam: PERRL, EOMI, eyes nml inspection Ears, Nose, Throat Exam: normal ENT inspection, pharynx normal, moist mucous membranes Neck Exam: normal inspection, non-tender, supple, full range of motion Respiratory Exam: normal breath sounds, lungs clear, No respiratory distress Cardiovascular Exam: regular rate/rhythm, normal heart sounds Gastrointestinal/Abdomen Exam: soft, No tenderness, No mass Pelvic Exam: deferred Rectal Exam: deferred Back Exam: normal inspection, normal range of motion, No CVA tenderness, No vertebral tenderness Extremity Exam: normal inspection, normal range of motion Skin Exam: normal color, warm, dry Final Diagnosis/Problem List - Final Discharge Diagnosis/Problem (1) Pneumonia Status: Resolved Code(s): J18.9 - PNEUMONIA, UNSPECIFIED ORGANISM (2) Atrial flutter Status: Chronic Code(s): I48.92 - UNSPECIFIED ATRIAL FLUTTER (3) Cough Status: Resolved Code(s): R05 - COUGH (4) Lung granuloma Status: Chronic Code(s): 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 - PULMONARY FIBROSIS, UNSPECIFIED (5) Acute exacerbation of chronic bronchitis Status: Resolved Code(s): J20.9 - ACUTE BRONCHITIS, UNSPECIFIED; J42 - UNSPECIFIED CHRONIC BRONCHITIS (6) Hypertensive CHF (congestive heart failure) Status: Chronic Code(s): I11.0 - HYPERTENSIVE HEART DISEASE WITH HEART FAILURE - Discharge Discharge Date: 05/15/21 Disposition: HOME HEALTH SERVICE Condition: Stable Prescriptions: New Fluticasone/Salmeterol 115/21 [Advair Hfa 115/21 Common canister*] 2 puff IH BIDRT Diltiazem HCl 120 mg [Cardizem CD 120 MG] 120 mg PO DAILY #30 cephALEXin [Cephalexin] 500 mg PO QID #20 tablet Apixaban [Eliquis 2.5 mg Tablet] 5 mg PO BID #60 tablet Methylprednisolone Packet [Medrol Dosepack] 4 mg PO UD #30 packet Continue Metformin HCl 500 mg [Glucophage 500 MG] 500 mg PO EVENING MEAL Fenofibrate,Micronized 145 mg* [Tricor 145 MG] 145 mg PO DAILY Fluticasone/Salmeterol [Advair 250-50 Diskus] 1 each IH BID Lorazepam 1 mg [Ativan 1 MG] 1 mg PO HS Escitalopram Oxalate 10 mg [Lexapro 10 MG] 20 mg PO DAILY Aspirin [Children's Aspirin] 81 mg PO HS Etodolac [Lodine] 200 mg PO BID Albuterol Common Canister [Ventolin Common Canister] 2 puff IH Q4H PRN PRN PRN Reason: Shortness Of Breath/Wheezing Vit C/E/Zn/Coppr/Lutein/Zeaxan [Preservision Areds 2 Softgel] 1 cap PO BID Calcium Carbonate/Vitamin D3 [Calcium 500 + Vit D 200 Tablet] 1 each PO BID #0 Instructions: Chronic Obstructive Pulmonary Disease (COPD) (DC), Oxygen Therapy, Child (DC) Additional Instructions[facility] THEIR PHONE NUMBER IS [phone]. THEY WILL MAKE CONTACT WITH YOU TO SET UP A VISIT. YOU NEED TO WEAR 3L/NC WHILE AWAKE Follow up with: NYASIA MIRANDA [ACTIVE STAFF] - 06/03/21 2:00 pm (at [place] ) BING MURPHY MD [Primary Care Provider] - 05/21/21 2:45 pm (at [facility] )
== END 2021-05-15 16:00 | disposition home health service (06) ==
LOC: ED 10:13 → MED SURG 14:26
PROVIDERS: ADMIT General Practice; ATTEND General Practice
DX: J18.9 Pneumonia, unspecified organism (principal); I11.0 Hypertensive heart disease with heart failure; I50.9 Heart failure, unspecified; J44.0 Chronic obstructive pulmonary disease with (acute) lower respiratory infection; I48.92 Unspecified atrial flutter; R07.89 Other chest pain; R50.9 Fever, unspecified; R10.9 Unspecified abdominal pain; Z99.81 Dependence on supplemental oxygen; Z79.899 Other long term (current) drug therapy; R51.9 Headache, unspecified; R53.83 Other fatigue; J84.10 Pulmonary fibrosis, unspecified; J20.9 Acute bronchitis, unspecified; R05 Cough; Z20.822 Contact with and (suspected) exposure to COVID-19
CPT/HCPCS: 36000; 36415; 71045; 71046; 80053; 80061; 83036; 83721; 83735; 84484; 85025; 85027; 87400; 93005; 93041; 93268; 93306; 94640; 94660; 94760; 96365; 96368; 96372; 97110; 97161; 97530; 99285; G0378; U0003; J0456; J0696; J1650; J1817; J2920; A9270-GY

== ENCOUNTER 2023-11-08 15:17 | Inpatient (IN) | payer MEDICARE ==
[2023-11-08] MEDS ORDERED: DUONEB 0.5-3 MG/3 ml Neb IH ONE (15:42)
[2023-11-08] MEDS: DUONEB 0.5-3 MG/3 ml Neb IH ONE (15:44)
--- NOTE | 2023-11-08 16:00 | ERPHSYRPT ---
- History of Present Illness Time Seen by Provider: 11/08/23 15:57 Source: EMS Exam Limitations: clinical condition Patient Subjective Stated Complaint: [place] [facility] and was found on the floor by the toilet, unknown how long she was there or if she had lost consciousness, pt doesn't remember any of it even when they got her off of the floor, pt is on blood thinners Triage Nursing Assessment: Pt brought to the ER by EMS, hypoxic, hypotensive, denies pain, pulses normal, skin n/w/d, short of breath and using accessory muscles, lungs clear, pt was placed on 2L NC but her oxygen was at 80% so she was placed on a non rebreather and it went to 89%, appears to be in some distress Physician History: Patient is 83-year-old female with significant past medical history of asthma COPD congestive heart failure atrial fibrillation living at assisted living facility where she fell and was found on the floor she does not remember when she fell. Ambulance was called in and patient was brought into the emergency room. Patient was very short of breath when came to the emergency room even though she was able to answer some basic questions including her date of and her name. She does not remember when she fell. She does not remember how long she has been on the floor. Timing/Duration: today Associated Symptoms: shortness of breath Allergies/Adverse Reactions: No Known Drug Allergies Allergy (Verified 11/08/23 15:41) Home Medications: Fenofibrate,Micronized 145 mg* [Tricor 145 MG] 145 mg PO DAILY 01/18/13 [History] Metformin HCl 500 mg [Glucophage 500 MG] 500 mg PO EVENING MEAL 01/18/13 [History] Fluticasone/Salmeterol [Advair 250-50 Diskus] 1 each IH BID 06/04/14 [History] Escitalopram Oxalate [Lexapro] 20 mg PO DAILY 10/11/14 [History] Lorazepam 1 mg [Ativan 1 MG] 1 mg PO HS 10/11/14 [History] Aspirin 81 mg PO HS 11/24/14 [History] Etodolac [Lodine] 200 mg PO BID 09/26/18 [History] Albuterol Common Canister [Ventolin Common Canister] 2 puff IH Q4H PRN PRN 02/03/19 [History] Vit C/E/Zn/Coppr/Lutein/Zeaxan [Preservision Areds 2 Softgel] 1 cap PO BID 05/08/21 [History] Hx Tetanus, Diphtheria Vaccination/Date Given: Yes Hx Influenza Vaccination/Date Given: Yes Hx Pneumococcal Vaccination/Date Given: No Travel Risk - International Travel Have you traveled outside of the country in past 3 weeks: No - Coronavirus Screening Are you exhibiting any of the following symptoms?: No - Vaccine Status Have you recieved a Covid-19 vaccination: Yes Egg Packer: Moderna - Vaccination Dates Date of 2cond Vaccination (if applicable): 11/15/20 - Review of Systems Constitutional: Lethargy, Weakness, No Fever, No Chills Eyes: No Symptoms Ears, Nose, & Throat: No Symptoms Respiratory: Dyspnea, Dyspnea on Exertion (KUMAR), Wheezing, No Cough Cardiac: No Chest Pain, No Edema, No Syncope Abdominal/Gastrointestinal: No Abdominal Pain, No Nausea, No Vomiting, No Diarrhea Genitourinary Symptoms: No Dysuria Musculoskeletal: No Back Pain, No Neck Pain Skin: No Rash Neurological: No Dizziness, No Focal Weakness, No Sensory Changes Psychological: No Symptoms Endocrine: No Symptoms All Other Systems: Reviewed and Negative - Past Medical History Pertinent Past Medical History: Yes Neurological History: No Pertinent History ENT History: Cataracts Cardiac History: Congestive Heart Failure, High Cholesterol, Hypertension Respiratory History: COPD, Pneumonia, Sleep Apnea, Other Endocrine Medical History: Diabetes Type I Musculoskeletal History: No Pertinent History, Osteoporosis GI Medical History: No Pertinent History History: No Pertinent History Psycho-Social History: Anxiety, Depression Female Reproductive Disorders: No Pertinent History Other Medical History: cpap - Past Surgical History Past Surgical History: Yes (11/08/14) Neuro Surgical History: No Pertinent History Cardiac: No Pertinent History Respiratory: No Pertinent History Gastrointestinal: No Pertinent History Genitourinary: No Pertinent History Musculoskeletal: Joint Replacement Female Surgical History: Hysterectomy Other Surgical History: BILAT KNEE REPLACEMENTSRT FOOT PLATE 2010 and 2011 - Social History Smoking Status: Never smoker Exposure to second hand smoke: No Drug Use: none Patient Lives Alone: No - Nursing Vital Signs Nursing Vital Signs: Initial Vital Signs Temperature 97.3 F 11/08/23 15:27 Pulse Rate 81 11/08/23 15:27 Blood Pressure 93/54 11/08/23 15:27 O2 Sat by Pulse Oximetry 82 L 11/08/23 15:27 Pain Scale Pain Intensity 0 - Physical Exam General Appearance: moderate distress, alert Eye Exam: PERRL/EOMI, eyes nml inspection Ears, Nose, Throat Exam: normal ENT inspection, TMs normal, pharynx normal, moist mucous membranes Neck Exam: normal inspection, non-tender, supple, full range of motion Respiratory Exam: respiratory distress, diminished breath sounds, accessory muscle use, crackles/rales, rhonchi, wheezing Cardiovascular Exam: normal peripheral pulses, irregular Gastrointestinal/Abdomen Exam: soft, normal bowel sounds, No tenderness, No mass Back Exam: normal inspection, normal range of motion, No CVA tenderness, No vertebral tenderness Extremity Exam: normal inspection, normal range of motion, pelvis stable Neurologic Exam: alert, oriented x 3, cooperative, normal mood/affect, nml cerebellar function, nml station & gait, sensation nml, No motor deficits Skin Exam: normal color, warm, dry, No rash Lymphatic Exam: No adenopathy SpO2: 84 - Course Nursing assessment & vital signs reviewed: Yes EKG Interpreted by Me: A-fib - Radiology Exams Chest X-ray Interpretation: Reviewed by me, Infiltrates Ordered Tests: Active Orders 24 hr Category Date Time Status EKG-ER Only STAT Care 11/08/23 15:20 Active EKG-ER Only STAT Care 11/08/23 15:23 Active Montiel [Catheter-[place] Montiel] STAT Care 11/08/23 16:27 Active IV Insertion STAT Care 11/08/23 16:06 Active IV Insertion-2nd Peripheral STAT Care 11/08/23 16:06 Active Oxygen-ED Only Nasal Cannula 3 lpm Care 11/08/23 15:20 Active CHEST 1 VIEW (PORTABLE) Stat Exams 11/08/23 16:49 Taken HEAD WITHOUT CONTRAST [CT] Stat Exams 11/08/23 15:21 Ordered KNEE (3 VIEWS) Stat Exams 11/08/23 16:49 Taken ARTERIAL BLOOD GASES Stat Lab 11/08/23 15:58 Completed BLOOD CULTURE Stat Lab 11/08/23 15:55 Received CBC W DIFF Stat Lab 11/08/23 16:07 Completed CMP Stat Lab 11/08/23 16:07 Completed CULTURE,URINE Stat Lab 11/08/23 16:28 Ordered Lactic Acid Stat Lab 11/08/23 16:02 Completed MAGNESIUM Stat Lab 11/08/23 16:07 Completed Manual Differential NC Stat Lab 11/08/23 16:07 Completed NT PRO BNPII Stat Lab 11/08/23 16:07 Received PROTIME WITH INR Stat Lab 11/08/23 16:07 Completed TROPONIN Q4H Lab 11/08/23 16:07 Received TROPONIN Q4H Lab 11/08/23 19:30 Ordered TROPONIN Q4H Lab 11/08/23 23:30 Ordered UA W/RFX UR CULTURE Stat Lab 11/08/23 16:27 Ordered BiPap/CPAP STAT RT 11/08/23 17:02 Active Medication Summary Generic Name Dose Route Start Last Admin Trade Name Freq PRN Reason Stop Dose Admin Sodium Chloride 1,000 mls @ 100 mls/hr 11/08/23 15:30 11/08/23 16:18 Sodium Chloride 0.9% 1000 Ml IV 12/08/23 15:29 999 mls/hr .Q10H MAHESH Administration Sodium Chloride 1,000 mls @ 999 mls/hr 11/08/23 16:15 11/08/23 16:43 Sodium Chloride 0.9% 1000 Ml IV 11/08/23 18:15 999 mls/hr .Q1H1M MAHESH Administration Discontinued Medications Generic Name Dose Route Start Last Admin Trade Name Freq PRN Reason Stop Dose Admin Albuterol/Ipratropium 3 ml 11/08/23 15:20 11/08/23 15:44 Ipratropium/Albuterol Sulfate 3 Ml Ampul.Neb IH 11/08/23 15:21 3 ml STAT ONE Administration Albuterol/Ipratropium Confirm 11/08/23 15:42 Ipratropium/Albuterol Sulfate 3 Ml Ampul.Neb Administered 11/08/23 15:43 Dose 3 ml IH .STK-MED ONE Piperacillin Sod/Tazobactam 100 mls @ 200 mls/hr 11/08/23 16:15 11/08/23 16:33 Sod 3.375 gm/ Sodium Chloride IV 11/08/23 16:44 200 mls/hr STAT ONE Administration Sodium Chloride Confirm 11/08/23 16:29 Sodium Chloride 100ml Mini-Bag Plus Administered 11/08/23 16:30 Dose 100 mls @ ud IV .STK-MED ONE Piperacillin Sod/Tazobactam Sod Confirm 11/08/23 16:29 Piperacillin/Tazobactam Sodium 3.375 Gm Vial Administered 11/08/23 16:30 Dose 3.375 gm IV .STK-MED ONE Lab/Rad Data: Laboratory Result Diagrams 11/08/23 16:07 11/08/23 16:07 Laboratory Results 11/08/23 11/08/23 11/08/23 Range/Units 16:07 16:07 16:07 WBC (4.0-10.5) x10^3/uL RBC (4.1-5.4) x10^6/uL Hgb (12.0-16.0) g/dL Hct (35-47) % MCV (78-100) fL MCH (26-32) pg MCHC (32-36) g/dL RDW (11.5-14.0) % Plt Count (150-450) x10^3/uL MPV (7.5-11.0) fL PT 25.1 H (9.4-12.5) SECONDS INR 2.44 (0.8-3.0) Puncture Site pCO2 (35-45) mmHg pO2 (75-100) mmHg Base Excess (-2.0-2.0) O2 Saturation (94-100) g/dF ABG pH (7.35-7.45) ABG HCO3 (22-28) ABG O2 Sat (Measured) (95-100) % Nelson Test A-a Gradient a/A Ratio Hemoglobin Carboxyhemoglobin (0.0-6.9) % THgb Methemoglobin (1.4-1.5) % Potassium 3.7 (3.5-5.1) Temperature C POC O2 Flow Rate % Sodium 140 (137-145) mmol/L Chloride 102 (98-107) mmol/L Carbon Dioxide 17 L (22-30) mmol/L Anion Gap 24.9 H (5-15) MEQ/L BUN 29 H (7-17) mg/dL Creatinine 1.96 H (0.52-1.04) mg/dL Estimated GFR 25.1 ML/MIN Glucose 114 H (74-106) mg/dL Lactic Acid (0.4-2.0) Calcium 9.1 (8.4-10.2) mg/dL Magnesium 1.7 (1.6-2.3) mg/dL Total Bilirubin 4.30 H (0.2-1.3) mg/dL AST 224 H (14-36) U/L ALT 48 H (0-35) U/L Alkaline Phosphatase 118 (38-126) U/L Serum Total Protein 6.7 (6.3-8.2) g/dL Albumin 3.8 (3.5-5.0) g/dL Influenza Type A Ag NEGATIVE (NEGATIVE) Influenza Type B Ag NEGATIVE (NEGATIVE) RSV (PCR) NEGATIVE (NEGATIVE) SARS-CoV-2 (PCR) NEGATIVE (NEGATIVE) 11/08/23 11/08/23 11/08/23 Range/Units 16:07 16:02 15:58 WBC 29.0 H* (4.0-10.5) x10^3/uL RBC 4.72 (4.1-5.4) x10^6/uL Hgb 14.4 (12.0-16.0) g/dL Hct 47.1 H (35-47) % MCV 99.8 (78-100) fL MCH 30.5 (26-32) pg MCHC 30.6 L (32-36) g/dL RDW 14.5 H (11.5-14.0) % Plt Count 151 (150-450) x10^3/uL MPV 10.5 (7.5-11.0) fL PT (9.4-12.5) SECONDS INR (0.8-3.0) Puncture Site RIGHT RADIAL pCO2 43 (35-45) mmHg pO2 72 L (75-100) mmHg Base Excess -9.3 L (-2.0-2.0) O2 Saturation 90.2 L (94-100) g/dF ABG pH 7.23 L* (7.35-7.45) ABG HCO3 18.0 L (22-28) ABG O2 Sat (Measured) 92.6 L (95-100) % Nelson Test YES A-a Gradient 587 a/A Ratio 0.11 Hemoglobin 14.7 Carboxyhemoglobin 1.9 (0.0-6.9) % THgb Methemoglobin 0.7 L (1.4-1.5) % Potassium 3.4 L (3.5-5.1) Temperature 37.0 C POC O2 Flow Rate 100 % Sodium (137-145) mmol/L Chloride (98-107) mmol/L Carbon Dioxide (22-30) mmol/L Anion Gap (5-15) MEQ/L BUN (7-17) mg/dL Creatinine (0.52-1.04) mg/dL Estimated GFR ML/MIN Glucose (74-106) mg/dL Lactic Acid 11.2 H (0.4-2.0) Calcium (8.4-10.2) mg/dL Magnesium (1.6-2.3) mg/dL Total Bilirubin (0.2-1.3) mg/dL AST (14-36) U/L ALT (0-35) U/L Alkaline Phosphatase (38-126) U/L Serum Total Protein (6.3-8.2) g/dL Albumin (3.5-5.0) g/dL Influenza Type A Ag (NEGATIVE) Influenza Type B Ag (NEGATIVE) RSV (PCR) (NEGATIVE) SARS-CoV-2 (PCR) (NEGATIVE) - Progress Progress: unchanged Discussed with .: Other (hospitalist Dr Pope) Will see patient in: hospital (full admit) Counseled pt/family regarding: lab results, diagnosis, need for follow-up, rad results Medical Desision Making - Independent Historian Additional History obtained from: Family - Discussion of managment Care discussed with:: hospitalist - Diagnostic Testing Diagnostic test were ordered, analyzed, and reviewed by me: Yes Radiological Interpretation: Reviewed by me - Risk of complications The pt has a high risk of morbidity or mortality based on: Drug therapy requiring intensive monitoring for toxicity, Decision regarding hospitilization or escalation of hosp level of care - Departure Departure Disposition: In-patient Admission Clinical Impression: Sepsis associated hypotension Pneumonia Qualifiers: Pneumonia type: due to Pneumococcus Laterality: right Lung location: lower lobe of lung Qualified Code(s): J13 - Pneumonia due to Streptococcus pneumoniae Hypertensive CHF (congestive heart failure) Qualifiers: Heart failure type: combined systolic and diastolic Heart failure chronicity: acute on chronic Qualified Code(s): I11.0 - Hypertensive heart disease with heart failure; I50.43 - Acute on chronic combined systolic (congestive) and diastolic (congestive) heart failure Urinary tract infection Qualifiers: Urinary tract infection type: acute pyelonephritis Qualified Code(s): N10 - Acute pyelonephritis Condition: Fair Critical Care Time: Yes Critical Care Time(excluding separately billable procedures): Critical 30-74 mins Referrals: BING MURPHY MD [Primary Care Provider] - Follow up/PCP as directed Instructions: Heart Failure, Pneumonia, Adult (DC), Preventing falls in adults
[2023-11-08 16:03] LABS: A-aADO2 587; ABG HEMOGLOBIN 14.7; ABG POTASSIUM 3.4 (3.5-5.1); ARTERIAL BLD GAS O2 SATURATION 92.6 % (95-100); ARTERIAL BLOOD GAS BASE EXCESS -9.3 (-2.0-2.0); ARTERIAL BLOOD GAS FIO2 100 %; ARTERIAL BLOOD GAS PCO2 43 mmHg (35-45); ARTERIAL BLOOD GAS PO2 72 mmHg (75-100); CARBOXYHEMOGLOBIN 1.9 % THgb (0.0-6.9); HGB O2 SAT 90.2 g/dF (94-100); Methhemoglobin 0.7 % (1.4-1.5); paO2 pAO1 0.11
[2023-11-08 16:04] LABS: ABG SITE RIGHT RADIAL; ALLEN TEST OK? YES; ARTERIAL BLOOD GAS pH 7.23 (7.35-7.45)
[2023-11-08 16:13] LABS: Hematocrit 47.1 % (35-47); Hemoglobin 14.4 g/dL (12.0-16.0); Mean Cell Volume 99.8 fL (78-100); Mean Corpuscular Hemoglobin 30.5 pg (26-32); Mean Corpuscular Hgb Concent. 30.6 g/dL (32-36); Mean Platelet Volume 10.5 fL (7.5-11.0); Platelet Count 151 x10^3/uL (150-450); Red Blood Count 4.72 x10^6/uL (4.1-5.4); Red Cell Distribution Width 14.5 % (11.5-14.0)
[2023-11-08] MEDS: Sodium Chloride 0.9% 1000 ML 1,000 ML IV SCH ×2 (16:18)
[2023-11-08 16:20] LABS: ALBUMIN 3.8 g/dL (3.5-5.0); INR 2.44 (0.8-3.0); MAGNESIUM 1.7 mg/dL (1.6-2.3); PROTIME 25.1 SECONDS (9.4-12.5)
[2023-11-08] MEDS ORDERED: PIPERACILLIN/TAZOBACTAM IV ONE ×2 (16:29→22:59)
[2023-11-08] MEDS ORDERED: Sodium Chloride 100ML MINI-BAG PLUS 100 ML IV ONE ×2 (16:29→22:59)
[2023-11-08] MEDS: PIPERACILLIN/TAZOBACTAM 3.375 GM in Sodium Chloride 100ML MINI-BAG PLUS 100 ML IV ONE (16:33)
[2023-11-08 16:48] LABS: INFLUENZA A NEGATIVE (NEGATIVE); INFLUENZA B NEGATIVE (NEGATIVE); RESPIRATORY SYNCTIAL VIRUS NEGATIVE (NEGATIVE); SARS-CoV-2 Xpert Express NEGATIVE (NEGATIVE)
[2023-11-08 16:57] LABS: ANION GAP 24.9 MEQ/L (5-15); BILIRUBIN,TOTAL 4.3 mg/dL (0.2-1.3); Calcium 9.1 mg/dL (8.4-10.2); Creatinine 1 1.96 mg/dL (0.52-1.04); EST GLOMERULAR FILTRATION RATE 25.1 ML/MIN; Potassium 3.7 mmol/L (3.5-5.1); Total Protein 6.7 g/dL (6.3-8.2)
[2023-11-08] MEDS: Sodium Chloride 0.9% 1000 ML 1,000 ML IV STA (17:10)
[2023-11-08 17:34] LABS: TROPONIN 0.521 ng/mL (0.000-0.034)
[2023-11-08 17:35] LABS: Appearance Turbid (Clear); Bacteria Many /HPF (None Seen); Bilirubin Small (Negative); Blood Large (Negative); Epithelial Cells Moderate /HPF (None Seen); Glucose, Urine Negative (Negative); Ketones Trace (Negative); Leukocyte Esterase Large (Negative); Nitrite Negative (Negative); Ph 5.5 (4.6-8.0); Protein,Urine Dip 300 (Negative); RBC 51-100 /HPF (0-5); WBC >100 /HPF (0-5)
[2023-11-08] MEDS: NOREPINEPHRINE 8 MG/250 ML-D5W 8 MG/250 ML PLAST..BAG IV PRN (17:51)
[2023-11-08 18:36] LABS: Hyaline Casts 0-2 /LPF (0-2)
[2023-11-08 18:37] LABS: ADD URINE CULTURE? YES (NO); Calcium Oxalate Crystals 0-2 /HPF (None Seen)
--- NOTE | 2023-11-08 18:41 | PCM.HP ---
History of Present Illness - Chief Complaint Chief Complaint: Pneumonia, Sepsis, UTI Date: 11/08/23 (18:35) History of Present Illness: is a 83 year old female. She was found down on the floor at her assisted living center. She is poorly responsive and cannot answer questions. Per ER physician she came in with confusion and dyspnea. She was hypotensive and severely hypoxic. She was septic due to pneumonia and UTI. PMH includes CHF, COPD, Atrial Fib, Diabetes type 2, HTN, HLD. She was given 4L of fluid in ER and started on Zosyn. - Review of Systems All Other Systems: Unable due to condition Medications & Allergies Home Medications: Home Medication List Fenofibrate,Micronized 145 mg* [Tricor 145 MG] 145 mg PO DAILY 01/18/13 [History Confirmed 05/08/21] Metformin HCl 500 mg [Glucophage 500 MG] 500 mg PO EVENING MEAL 01/18/13 [History Confirmed 05/08/21] Fluticasone/Salmeterol [Advair 250-50 Diskus] 1 each IH BID 06/04/14 [History Confirmed 05/08/21] Escitalopram Oxalate [Lexapro] 20 mg PO DAILY 10/11/14 [History Confirmed 05/08/21] Lorazepam 1 mg [Ativan 1 MG] 1 mg PO HS 10/11/14 [History Confirmed 05/08/21] Aspirin 81 mg PO HS 11/24/14 [History Confirmed 05/08/21] Etodolac [Lodine] 200 mg PO BID 09/26/18 [History Confirmed 05/08/21] Albuterol Common Canister [Ventolin Common Canister] 2 puff IH Q4H PRN PRN 02/03/19 [History Confirmed 05/08/21] Vit C/E/Zn/Coppr/Lutein/Zeaxan [Preservision Areds 2 Softgel] 1 cap PO BID 05/08/21 [History Confirmed 05/08/21] Apixaban [Eliquis 2.5 mg Tablet] 5 mg PO BID #60 tablet 05/15/21 [Rx] Calcium Carbonate/Vitamin D3 [Calcium 500 + Vit D 200 Tablet] 1 each PO BID #0 05/15/21 [Rx Confirmed 05/08/21] Diltiazem HCl Cd [Cardizem CD ] 120 mg PO DAILY #30 05/15/21 [Rx] Fluticasone/Salmeterol [Advair Hfa Common canister*] 2 puff IH BIDRT 05/15/21 [Rx] Methylprednisolone Packet [Medrol Dosepack] 4 mg PO UD #30 packet 05/15/21 [Rx] cephALEXin [Cephalexin] 500 mg PO QID #20 tablet 05/15/21 [Rx] Allergies/Adverse Reactions: Allergies Allergy/AdvReac Type Severity Reaction Status Date / Time No Known Drug Allergies Allergy Verified 11/08/23 15:41 - Past Medical History Past Medical History: Yes Neurological History: No Pertinent History ENT History: Cataracts Cardiac History: Arrhythmia, Congestive Heart Failure, High Cholesterol, Hypertension Respiratory History: COPD, Pneumonia, Sleep Apnea, Other Endocrine Medical History: Diabetes Type II Musculoskelatal History: No Pertinent History, Osteoporosis GI Medical History: No Pertinent History History: No Pertinent History Pyscho-Social History: Anxiety, Depression Reproductive Disorders: No Pertinent History Comment: cpap, afib - Past Surgical History Past Surgical History: Yes (11/08/14) Neuro Surgical History: No Pertinent History Cardiac History: No Pertinent History Respiratory Surgery: No Pertinent History GI Surgical History: No Pertinent History Genitourinary Surgical Hx: No Pertinent History Musculskeletal Surgical Hx: Joint Replacement Female Surgical History: Hysterectomy Other Surgical History: BILAT KNEE REPLACEMENTSRT FOOT PLATE 2010 and 2011 - Social History Smoking Status: Never smoker Exposure to second hand smoke: No Alcohol: None Drug Use: none - Physical Exam Vital Signs: Vital Signs - 24 hr Temp Pulse Resp BP BP Pulse Ox 11/08/23 17:10 84 L 11/08/23 16:10 88/50 88 L 11/08/23 16:05 130 H 66/53 88 L 11/08/23 16:03 88 L 11/08/23 15:51 75 18 84 L 11/08/23 15:30 120 H 93/54 89 L 11/08/23 15:27 97.3 F 81 93/54 82 L General Appearance: lethargy Neurologic Exam: disoriented, confusion Eye Exam: PERRL/EOMI Ears, Nose, Throat Exam: normal ENT inspection Neck Exam: normal inspection, non-tender, supple Respiratory Exam: crackles/rales, rhonchi, wheezing Cardiovascular Exam: tachycardia, irregular Gastrointestinal/Abdomen Exam: soft, normal bowel sounds, No tenderness, No distention, No mass Pelvic Exam: not done Rectal Exam: deferred Back Exam: normal inspection Extremity Exam: pedal edema Skin Exam: normal color, warm, dry Lymphatic Exam: No adenopathy Results - Labs Lab/Micro Results: Lab Results-Last 24 Hours 11/08/23 11/08/23 11/08/23 Range/Units 15:58 16:02 16:07 WBC 29.0 H* (4.0-10.5) x10^3/uL RBC 4.72 (4.1-5.4) x10^6/uL Hgb 14.4 (12.0-16.0) g/dL Hct 47.1 H (35-47) % MCV 99.8 (78-100) fL MCH 30.5 (26-32) pg MCHC 30.6 L (32-36) g/dL RDW 14.5 H (11.5-14.0) % Plt Count 151 (150-450) x10^3/uL MPV 10.5 (7.5-11.0) fL PT (9.4-12.5) SECONDS INR (0.8-3.0) Puncture Site RIGHT RADIAL pCO2 43 (35-45) mmHg pO2 72 L (75-100) mmHg Base Excess -9.3 L (-2.0-2.0) O2 Saturation 90.2 L (94-100) g/dF ABG pH 7.23 L* (7.35-7.45) ABG HCO3 18.0 L (22-28) ABG O2 Sat (Measured) 92.6 L (95-100) % Nelson Test YES A-a Gradient 587 a/A Ratio 0.11 Hemoglobin 14.7 Carboxyhemoglobin 1.9 (0.0-6.9) % THgb Methemoglobin 0.7 L (1.4-1.5) % Potassium 3.4 L (3.5-5.1) Temperature 37.0 C POC O2 Flow Rate 100 % Sodium (137-145) mmol/L Chloride (98-107) mmol/L Carbon Dioxide (22-30) mmol/L Anion Gap (5-15) MEQ/L BUN (7-17) mg/dL Creatinine (0.52-1.04) mg/dL Estimated GFR ML/MIN Glucose (74-106) mg/dL Lactic Acid 11.2 H (0.4-2.0) Calcium (8.4-10.2) mg/dL Magnesium (1.6-2.3) mg/dL Total Bilirubin (0.2-1.3) mg/dL AST (14-36) U/L ALT (0-35) U/L Alkaline Phosphatase (38-126) U/L Troponin I (0.000-0.034) ng/mL NT-Pro-B Natriuret Pep (<300) pg/mL Serum Total Protein (6.3-8.2) g/dL Albumin (3.5-5.0) g/dL Influenza Type A Ag (NEGATIVE) Influenza Type B Ag (NEGATIVE) RSV (PCR) (NEGATIVE) SARS-CoV-2 (PCR) (NEGATIVE) 11/08/23 11/08/23 11/08/23 Range/Units 16:07 16:07 16:07 WBC (4.0-10.5) x10^3/uL RBC (4.1-5.4) x10^6/uL Hgb (12.0-16.0) g/dL Hct (35-47) % MCV (78-100) fL MCH (26-32) pg MCHC (32-36) g/dL RDW (11.5-14.0) % Plt Count (150-450) x10^3/uL MPV (7.5-11.0) fL PT 25.1 H (9.4-12.5) SECONDS INR 2.44 (0.8-3.0) Puncture Site pCO2 (35-45) mmHg pO2 (75-100) mmHg Base Excess (-2.0-2.0) O2 Saturation (94-100) g/dF ABG pH (7.35-7.45) ABG HCO3 (22-28) ABG O2 Sat (Measured) (95-100) % Nelson Test A-a Gradient a/A Ratio Hemoglobin Carboxyhemoglobin (0.0-6.9) % THgb Methemoglobin (1.4-1.5) % Potassium 3.7 (3.5-5.1) Temperature C POC O2 Flow Rate % Sodium 140 (137-145) mmol/L Chloride 102 (98-107) mmol/L Carbon Dioxide 17 L (22-30) mmol/L Anion Gap 24.9 H (5-15) MEQ/L BUN 29 H (7-17) mg/dL Creatinine 1.96 H (0.52-1.04) mg/dL Estimated GFR 25.1 ML/MIN Glucose 114 H (74-106) mg/dL Lactic Acid (0.4-2.0) Calcium 9.1 (8.4-10.2) mg/dL Magnesium 1.7 (1.6-2.3) mg/dL Total Bilirubin 4.30 H (0.2-1.3) mg/dL AST 224 H (14-36) U/L ALT 48 H (0-35) U/L Alkaline Phosphatase 118 (38-126) U/L Troponin I 0.521 H* (0.000-0.034) ng/mL NT-Pro-B Natriuret Pep 87173 (<300) pg/mL Serum Total Protein 6.7 (6.3-8.2) g/dL Albumin 3.8 (3.5-5.0) g/dL Influenza Type A Ag (NEGATIVE) Influenza Type B Ag (NEGATIVE) RSV (PCR) (NEGATIVE) SARS-CoV-2 (PCR) (NEGATIVE) 11/08/23 Range/Units 16:07 WBC (4.0-10.5) x10^3/uL RBC (4.1-5.4) x10^6/uL Hgb (12.0-16.0) g/dL Hct (35-47) % MCV (78-100) fL MCH (26-32) pg MCHC (32-36) g/dL RDW (11.5-14.0) % Plt Count (150-450) x10^3/uL MPV (7.5-11.0) fL PT (9.4-12.5) SECONDS INR (0.8-3.0) Puncture Site pCO2 (35-45) mmHg pO2 (75-100) mmHg Base Excess (-2.0-2.0) O2 Saturation (94-100) g/dF ABG pH (7.35-7.45) ABG HCO3 (22-28) ABG O2 Sat (Measured) (95-100) % Nelson Test A-a Gradient a/A Ratio Hemoglobin Carboxyhemoglobin (0.0-6.9) % THgb Methemoglobin (1.4-1.5) % Potassium (3.5-5.1) Temperature C POC O2 Flow Rate % Sodium (137-145) mmol/L Chloride (98-107) mmol/L Carbon Dioxide (22-30) mmol/L Anion Gap (5-15) MEQ/L BUN (7-17) mg/dL Creatinine (0.52-1.04) mg/dL Estimated GFR ML/MIN Glucose (74-106) mg/dL Lactic Acid (0.4-2.0) Calcium (8.4-10.2) mg/dL Magnesium (1.6-2.3) mg/dL Total Bilirubin (0.2-1.3) mg/dL AST (14-36) U/L ALT (0-35) U/L Alkaline Phosphatase (38-126) U/L Troponin I (0.000-0.034) ng/mL NT-Pro-B Natriuret Pep (<300) pg/mL Serum Total Protein (6.3-8.2) g/dL Albumin (3.5-5.0) g/dL Influenza Type A Ag NEGATIVE (NEGATIVE) Influenza Type B Ag NEGATIVE (NEGATIVE) RSV (PCR) NEGATIVE (NEGATIVE) SARS-CoV-2 (PCR) NEGATIVE (NEGATIVE) - Radiology Impressions Radiology Exams & Impressions: Radiology Procedures Category Date Time Status CHEST 1 VIEW (PORTABLE) Stat Exams 11/08/23 16:49 Taken HEAD WITHOUT CONTRAST [CT] Stat Exams 11/08/23 15:21 Ordered KNEE (3 VIEWS) Stat Exams 11/08/23 16:49 Taken - Other Procedures and Tests Respiratory Therapy 11/08/23 17:02 BiPap/CPAP STAT 11/08/23 17:10 Respiratory Therapy Consult ONCE Assessment/Plan (1) Sepsis associated hypotension Current Visit: Yes Status: Acute Assessment & Plan: Severe sepsis with hypotension. Severe lactic acidosis at 11.2. 30cc/kg fluid given in ER. Started on Zosyn. Will continue Zosyn and add Vancomycin. Currently on levophed for hypotension. Continue IV fluids. Sepsis is due to pneumonia or UTI. Code(s): A41.9 - SEPSIS, UNSPECIFIED ORGANISM; I95.9 - HYPOTENSION, UNSPECIFIED (2) Pneumonia Current Visit: Yes Status: Acute Qualifiers: Pneumonia type: due to Pneumococcus Laterality: right Lung location: lower lobe of lung Qualified Code(s): J13 - Pneumonia due to Streptococcus pneumoniae Assessment & Plan: Pneumonia in face of COPD. Severe sepsis as above Continue Zosyn and add Vanc Plan steroids and bronchodilators. Patient has acute respiratory failure with sats in 80's Oxygen as needed Code(s): J18.9 - PNEUMONIA, UNSPECIFIED ORGANISM (3) Acute kidney injury Current Visit: Yes Status: Acute Assessment & Plan: Cr=1.96. Continue IV fluids. Support BP with NE. Avoid nephrotoxins. Code(s): N17.9 - ACUTE KIDNEY FAILURE, UNSPECIFIED (4) Abnormal LFTs Current Visit: Yes Status: Acute Assessment & Plan: Will plan CT of abdomen and perhaps us in am. Too unstable for CT now. Code(s): R79.89 - OTHER SPECIFIED ABNORMAL FINDINGS OF BLOOD CHEMISTRY (5) Atrial fibrillation Current Visit: Yes Status: Acute Assessment & Plan: Going in and out of a fib. HR was 130 but now 84. Rate control as needed. This will be difficult in face of hypotension. Code(s): I48.91 - UNSPECIFIED ATRIAL FIBRILLATION (6) COPD (chronic obstructive pulmonary disease) Current Visit: Yes Status: Acute Assessment & Plan: Wheezing. Acute respiratory failure. Continue oxygen as needed. Plan bronchodilators, steroids and antibiotics. (7) Diabetes type 2, controlled Current Visit: Yes Status: Acute Assessment & Plan: Monitor BS. SS insulin Code(s): E11.9 - TYPE 2 DIABETES MELLITUS WITHOUT COMPLICATIONS (8) HTN (hypertension) Current Visit: Yes Status: Acute Assessment & Plan: Patient currently hypotensive. Meds on hold Code(s): I10 - ESSENTIAL (PRIMARY) HYPERTENSION (9) HLD (hyperlipidemia) Current Visit: Yes Status: Acute Assessment & Plan: Resume home meds when able Code(s): E78.5 - HYPERLIPIDEMIA, UNSPECIFIED (10) Urinary tract infection Current Visit: Yes Status: Acute Qualifiers: Urinary tract infection type: acute pyelonephritis Qualified Code(s): N10 - Acute pyelonephritis Assessment & Plan: Plan urine culture and blood cultures. Continue Zosyn. Code(s): N39.0 - URINARY TRACT INFECTION, SITE NOT SPECIFIED (11) Hypertensive CHF (congestive heart failure) Current Visit: Yes Status: Chronic Qualifiers: Heart failure type: combined systolic and diastolic Heart failure chronicity: acute on chronic Qualified Code(s): I11.0 - Hypertensive heart disease with heart failure; I50.43 - Acute on chronic combined systolic (congestive) and diastolic (congestive) heart failure Assessment & Plan: History or CHF systolic and diastolic. Monitor volume status closely. Required IV fluids for septic shock. Code(s): I11.0 - HYPERTENSIVE HEART DISEASE WITH HEART FAILURE Telemedicine Encounter - Telemedicine Encounter Telemedicine Encounter: The entirety of this encounter was performed via Telemedicine" after consent obtained. Labs and imaging reviewed. Discussed with ER provider. Critically ill. Complex decision making required.
--- NOTE | 2023-11-08 18:50 | XRAY ---
Indication: Pain following fall. Comparison: None 3 portable views right knee demonstrates mild anterior soft tissue swelling, osteopenia, total knee arthroplasty with intact articulation/prosthesis, and small posterior fabella. No other bony, articular, or soft tissue abnormalities.
--- NOTE | 2023-11-08 18:52 | XRAY ---
Indication: Short of breath. Comparison: May 30, 2021 Portable chest demonstrates new hazy diffuse right lung infiltrates/atelectasis with tiny effusion. Remaining lungs clear. Chronic right hemidiaphragm elevation and borderline cardiomegaly. Bony thorax intact again with osteopenia and mild degenerative changes.
[2023-11-08 19:40] LABS: Hematocrit 44.2 % (35-47); Hemoglobin 13.5 g/dL (12.0-16.0); Mean Cell Volume 101.1 fL (78-100); Mean Corpuscular Hemoglobin 30.9 pg (26-32); Mean Corpuscular Hgb Concent. 30.5 g/dL (32-36); Mean Platelet Volume 10.8 fL (7.5-11.0); Platelet Count 113 x10^3/uL (150-450); Red Blood Count 4.37 x10^6/uL (4.1-5.4); Red Cell Distribution Width 14.6 % (11.5-14.0)
[2023-11-08 19:49] LABS: White Blood Count 29.2 x10^3/uL (4.0-10.5)
[2023-11-08 20:08] LABS: ANION GAP 15.9 MEQ/L (5-15); BILIRUBIN,TOTAL 5.6 mg/dL (0.2-1.3); Calcium 8.2 mg/dL (8.4-10.2); Creatinine 1 1.71 mg/dL (0.52-1.04); EST GLOMERULAR FILTRATION RATE 29.6 ML/MIN; Potassium 3.6 mmol/L (3.5-5.1); Total Protein 5.6 g/dL (6.3-8.2)
[2023-11-08 20:09] LABS: MAGNESIUM 1.4 mg/dL (1.6-2.3)
[2023-11-08] MEDS: VANCOMYCIN 1 GRAM/200 ML BAG 1 GM/200 ML PIGGYBACK IV SCH (20:43)
[2023-11-08 21:14] LABS: BAND 17 % (0.0-2.0); Lymphocytes 1 % (24-44); Metamyelocyte 3 %; Neutrophils 79 % (36.0-66.0); Platelet Estimate NORMAL (NORMAL); Polychromasia 1+; Total Cells Counted 100
[2023-11-08 22:16] LABS: BAND 13 % (0.0-2.0); Macrocytosis 1+; Metamyelocyte 6 %; Monocyte 3 % (0.0-12.0); Neutrophils 78 % (36.0-66.0); Platelet Estimate DECREASED (NORMAL); Total Cells Counted 100
[2023-11-08 22:17] LABS: Nucleated Red Blood Cell 1 %
[2023-11-08] MEDS ORDERED: solu-MEDROL ONE (22:58)
[2023-11-08] MEDS ORDERED: DUONEB 0.5-3 MG/3 ml Neb IH SCH (23:00)
[2023-11-08] MEDS ORDERED: Sterile H2O 10 ml IJ ONE (23:01)
[2023-11-08] MEDS: solu-MEDROL 40 MG, Sterile H2O 10 ml 1 ML IV SCH (23:08)
[2023-11-08] MEDS: TYLENOL EXTRA STRENGTH 500 MG PO PRN (23:08)
[2023-11-08] MEDS: PIPERACILLIN/TAZOBACTAM 4.5 GM in Sodium Chloride 100ML MINI-BAG PLUS 100 ML IV SCH (23:09)
[2023-11-09] MEDS: DUONEB 0.5-3 MG/3 ml Neb IH SCH (01:13)
[2023-11-09] MEDS: Ativan 2 MG/1 ML VIAL IV ONE (03:29)
[2023-11-09 04:30] LABS: Hematocrit 43.4 % (35-47); Hemoglobin 13.5 g/dL (12.0-16.0); Mean Cell Volume 100.2 fL (78-100); Mean Corpuscular Hemoglobin 31.2 pg (26-32); Mean Corpuscular Hgb Concent. 31.1 g/dL (32-36); Platelet Count 91 x10^3/uL (150-450); Red Blood Count 4.33 x10^6/uL (4.1-5.4); Red Cell Distribution Width 15.1 % (11.5-14.0)
[2023-11-09 04:37] LABS: White Blood Count 34.1 x10^3/uL (4.0-10.5)
[2023-11-09 04:47] LABS: ALBUMIN 3.2 g/dL (3.5-5.0); ANION GAP 16.9 MEQ/L (5-15); BILIRUBIN,TOTAL 6.2 mg/dL (0.2-1.3); Calcium 8.1 mg/dL (8.4-10.2); Creatinine 1 2.38 mg/dL (0.52-1.04); EST GLOMERULAR FILTRATION RATE 19.9 ML/MIN; MAGNESIUM 1.3 mg/dL (1.6-2.3); Potassium 3.3 mmol/L (3.5-5.1)
[2023-11-09] MEDS ORDERED: PIPERACILLIN/TAZOBACTAM IV ONE (05:40)
[2023-11-09] MEDS ORDERED: NOREPINEPHRINE 8 MG/250 ML-D5W 8 MG/250 ML PLAST..BAG IV ONE (05:41)
[2023-11-09] MEDS ORDERED: Sodium Chloride 100ML MINI-BAG PLUS 100 ML IV ONE (05:42)
[2023-11-09] MEDS ORDERED: solu-MEDROL ONE (05:56)
[2023-11-09] MEDS ORDERED: Sterile H2O 10 ml IJ ONE (05:57)
[2023-11-09] MEDS ORDERED: DUONEB 0.5-3 MG/3 ml Neb IH ONE (06:46)
[2023-11-09 07:34] VITALS: TEMP 96.7
[2023-11-09] MEDS ORDERED: Magnesium 1 Gm / 100 Ml D5W*** 100 ML IV ONE (07:39)
[2023-11-09] MEDS ORDERED: POTASSIUM CHLORIDE 20 mEq IN WATER 100ML 100 ML IV SCH (08:00)
[2023-11-09 08:13] LABS: A-aADO2 211; ABG HEMOGLOBIN 13.5; ABG POTASSIUM 3.6 (3.5-5.1); ARTERIAL BLD GAS O2 SATURATION 98.4 % (95-100); ARTERIAL BLOOD GAS BASE EXCESS -7.9 (-2.0-2.0); ARTERIAL BLOOD GAS FIO2 50 %; ARTERIAL BLOOD GAS PCO2 36 mmHg (35-45); ARTERIAL BLOOD GAS PO2 101 mmHg (75-100); ARTERIAL BLOOD GAS VENT RATE 16 /MIN; CARBOXYHEMOGLOBIN 1.3 % THgb (0.0-6.9); HCO3- 17.7 (22-28); HGB O2 SAT 96.2 g/dF (94-100); paO2 pAO1 0.32
[2023-11-09 08:14] LABS: ABG SITE LRA; ALLEN TEST OK? YES; ARTERIAL BLOOD GAS VENT MODE bipap 14/6
[2023-11-09] MEDS: Potassium Chloride 40 MEQ/20 ML VIAL 40 MEQ, Magnesium Sulfate 1 GM/2 ML VIAL*** 2 GM i... IV SCH (08:20)
[2023-11-09] MEDS ORDERED: HUMALOG SQ PRN (09:12)
--- NOTE | 2023-11-09 11:19 | XRAY ---
Indication: Elevated AST/ALT. Two-dimensional right upper quadrant abdominal sonogram performed. Comparison: None Nurse Researcher notes limited sonogram due to patient body habitus, immobility, trouble breathing, and excessive gas. Pancreas, liver, and gallbladder are not well seen. Visualized liver is enlarged measuring 21.4 cm. No ascites. Common bile duct measures 4.5 mm. No intrahepatic biliary distention. Right kidney measures 7.9 x 5.8 x 5.4 cm sonographically unremarkable. Impression: Limited right upper quadrant abdominal sonogram with incidental hepatomegaly. CT may yield further information if there remains clinical concern.
--- NOTE | 2023-11-09 12:13 | PCM.DS ---
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 She was found down on the floor at her assisted living center. She is poorly responsive and cannot answer questions. Per ER physician she came in with confusion and dyspnea. She was hypotensive and severely hypoxic. She was septic due to pneumonia and UTI. She was given 4L of fluid in ER and started on Zosyn. She is not improving much today and on a norepinephrine gtt for hypertension. She remains on BiPAP since admission. Lactic acid is 6.6 which [place] [address] therefore unable to give fluid boluses at this time d/t CHF and SOB. K+ and Mg+ replaced. She is requring higher level of care and will be transferred to [place]. Spoke with family about transfer. - Vitals & Intake/Output Vital Signs: Vital Signs Temperature 96.7 F 11/09/23 07:30 Pulse Rate 70 11/09/23 11:51 Respiratory Rate 30 H 11/09/23 11:51 Blood Pressure 83/41 11/09/23 11:51 O2 Sat by Pulse Oximetry 95 11/09/23 11:51 Intake & Output: Intake & Output 11/07/23 11/08/23 11/09/23 11/10/23 11:59 11:59 11:59 11:59 Intake Total 2075 Output Total Balance 2054 Weight 110.4 kg - Lab Result Diagrams: 11/09/23 04:20 11/09/23 04:20 Lab Results-Last 24 Hrs: Lab Results-Last 24 Hours 11/08/23 11/08/23 11/08/23 Range/Units 00:11 15:58 16:02 WBC (4.0-10.5) x10^3/uL RBC (4.1-5.4) x10^6/uL Hgb (12.0-16.0) g/dL Hct (35-47) % MCV (78-100) fL MCH (26-32) pg MCHC (32-36) g/dL RDW (11.5-14.0) % Plt Count (150-450) x10^3/uL MPV (7.5-11.0) fL Segmented Neutrophils (36.0-66.0) % Band Neutrophils (0.0-2.0) % Lymphocytes (Manual) (24-44) % Monocytes (Manual) (0.0-12.0) % Metamyelocytes % Nucleated RBCs % Platelet Estimate (NORMAL) RBC Morphology Polychromasia Macrocytosis PT (9.4-12.5) SECONDS INR (0.8-3.0) Puncture Site RIGHT RADIAL pCO2 43 (35-45) mmHg pO2 72 L (75-100) mmHg Base Excess -9.3 L (-2.0-2.0) O2 Saturation 90.2 L (94-100) g/dF ABG pH 7.23 L* (7.35-7.45) ABG HCO3 18.0 L (22-28) ABG O2 Sat (Measured) 92.6 L (95-100) % Nelson Test YES A-a Gradient 587 a/A Ratio 0.11 Hemoglobin 14.7 Carboxyhemoglobin 1.9 (0.0-6.9) % THgb Methemoglobin 0.7 L (1.4-1.5) % Potassium 3.4 L (3.5-5.1) Temperature 37.0 C POC O2 Flow Rate 100 % Vent Mode Vent Rate /MIN Sodium (137-145) mmol/L Chloride (98-107) mmol/L Carbon Dioxide (22-30) mmol/L Anion Gap (5-15) MEQ/L BUN (7-17) mg/dL Creatinine (0.52-1.04) mg/dL Estimated GFR ML/MIN Glucose (74-106) mg/dL POC Glucometer (74 to 106) mg/dL Hemoglobin A1c (4.5-6.0) % Lactic Acid 11.2 H (0.4-2.0) Calcium (8.4-10.2) mg/dL Phosphorus (2.5-4.5) mg/dL Magnesium (1.6-2.3) mg/dL Total Bilirubin (0.2-1.3) mg/dL AST (14-36) U/L ALT (0-35) U/L Alkaline Phosphatase (38-126) U/L Creatine Kinase (30-135) U/L Troponin I 1.700 H* (0.000-0.034) ng/mL NT-Pro-B Natriuret Pep (<300) pg/mL Serum Total Protein (6.3-8.2) g/dL Albumin (3.5-5.0) g/dL Procalcitonin (0.030-0.080) ng/mL Urine Color (Yellow) Urine Appearance (Clear) Urine pH (4.6-8.0) Ur Specific [place] (1.005-1.030) Urine Protein (Negative) Urine Glucose (UA) (Negative) mg/dL Urine Ketones (Negative) Urine Blood (Negative) Urine Nitrite (Negative) Urine Bilirubin (Negative) Urine Urobilinogen (0.2) mg/dL Ur Leukocyte Esterase (Negative) U Hyaline Cast (Auto) (0-2) /LPF Urine Microscopic RBC (0-5) /HPF Urine Microscopic WBC (0-5) /HPF Ur Epithelial Cells (None Seen) /HPF Calcium Oxalate Crystal (None Seen) /HPF Urine Bacteria (None Seen) /HPF Urine Culture Reflexed (NO) Influenza Type A Ag (NEGATIVE) Influenza Type B Ag (NEGATIVE) RSV (PCR) (NEGATIVE) SARS-CoV-2 (PCR) (NEGATIVE) 11/08/23 11/08/23 11/08/23 Range/Units 16:07 16:07 16:07 WBC 29.0 H* (4.0-10.5) x10^3/uL RBC 4.72 (4.1-5.4) x10^6/uL Hgb 14.4 (12.0-16.0) g/dL Hct 47.1 H (35-47) % MCV 99.8 (78-100) fL MCH 30.5 (26-32) pg MCHC 30.6 L (32-36) g/dL RDW 14.5 H (11.5-14.0) % Plt Count 151 (150-450) x10^3/uL MPV 10.5 (7.5-11.0) fL Segmented Neutrophils 79 H (36.0-66.0) % Band Neutrophils 17 H (0.0-2.0) % Lymphocytes (Manual) 1 L (24-44) % Monocytes (Manual) (0.0-12.0) % Metamyelocytes 3 % Nucleated RBCs % Platelet Estimate NORMAL (NORMAL) RBC Morphology ABNORMAL Polychromasia 1+ Macrocytosis PT 25.1 H (9.4-12.5) SECONDS INR 2.44 (0.8-3.0) Puncture Site pCO2 (35-45) mmHg pO2 (75-100) mmHg Base Excess (-2.0-2.0) O2 Saturation (94-100) g/dF ABG pH (7.35-7.45) ABG HCO3 (22-28) ABG O2 Sat (Measured) (95-100) % Nelson Test A-a Gradient a/A Ratio Hemoglobin Carboxyhemoglobin (0.0-6.9) % THgb Methemoglobin (1.4-1.5) % Potassium 3.7 (3.5-5.1) Temperature C POC O2 Flow Rate % Vent Mode Vent Rate /MIN Sodium 140 (137-145) mmol/L Chloride 102 (98-107) mmol/L Carbon Dioxide 17 L (22-30) mmol/L Anion Gap 24.9 H (5-15) MEQ/L BUN 29 H (7-17) mg/dL Creatinine 1.96 H (0.52-1.04) mg/dL Estimated GFR 25.1 ML/MIN Glucose 114 H (74-106) mg/dL POC Glucometer (74 to 106) mg/dL Hemoglobin A1c (4.5-6.0) % Lactic Acid (0.4-2.0) Calcium 9.1 (8.4-10.2) mg/dL Phosphorus (2.5-4.5) mg/dL Magnesium 1.7 (1.6-2.3) mg/dL Total Bilirubin 4.30 H (0.2-1.3) mg/dL AST 224 H (14-36) U/L ALT 48 H (0-35) U/L Alkaline Phosphatase 118 (38-126) U/L Creatine Kinase (30-135) U/L Troponin I (0.000-0.034) ng/mL NT-Pro-B Natriuret Pep (<300) pg/mL Serum Total Protein 6.7 (6.3-8.2) g/dL Albumin 3.8 (3.5-5.0) g/dL Procalcitonin (0.030-0.080) ng/mL Urine Color (Yellow) Urine Appearance (Clear) Urine pH (4.6-8.0) Ur Specific [place] (1.005-1.030) Urine Protein (Negative) Urine Glucose (UA) (Negative) mg/dL Urine Ketones (Negative) Urine Blood (Negative) Urine Nitrite (Negative) Urine Bilirubin (Negative) Urine Urobilinogen (0.2) mg/dL Ur Leukocyte Esterase (Negative) U Hyaline Cast (Auto) (0-2) /LPF Urine Microscopic RBC (0-5) /HPF Urine Microscopic WBC (0-5) /HPF Ur Epithelial Cells (None Seen) /HPF Calcium Oxalate Crystal (None Seen) /HPF Urine Bacteria (None Seen) /HPF Urine Culture Reflexed (NO) Influenza Type A Ag (NEGATIVE) Influenza Type B Ag (NEGATIVE) RSV (PCR) (NEGATIVE) SARS-CoV-2 (PCR) (NEGATIVE) 11/08/23 11/08/23 11/08/23 Range/Units 16:07 16:07 16:07 WBC (4.0-10.5) x10^3/uL RBC (4.1-5.4) x10^6/uL Hgb (12.0-16.0) g/dL Hct (35-47) % MCV (78-100) fL MCH (26-32) pg MCHC (32-36) g/dL RDW (11.5-14.0) % Plt Count (150-450) x10^3/uL MPV (7.5-11.0) fL Segmented Neutrophils (36.0-66.0) % Band Neutrophils (0.0-2.0) % Lymphocytes (Manual) (24-44) % Monocytes (Manual) (0.0-12.0) % Metamyelocytes % Nucleated RBCs % Platelet Estimate (NORMAL) RBC Morphology Polychromasia Macrocytosis PT (9.4-12.5) SECONDS INR (0.8-3.0) Puncture Site pCO2 (35-45) mmHg pO2 (75-100) mmHg Base Excess (-2.0-2.0) O2 Saturation (94-100) g/dF ABG pH (7.35-7.45) ABG HCO3 (22-28) ABG O2 Sat (Measured) (95-100) % Nelson Test A-a Gradient a/A Ratio Hemoglobin Carboxyhemoglobin (0.0-6.9) % THgb Methemoglobin (1.4-1.5) % Potassium (3.5-5.1) Temperature C POC O2 Flow Rate % Vent Mode Vent Rate /MIN Sodium (137-145) mmol/L Chloride (98-107) mmol/L Carbon Dioxide (22-30) mmol/L Anion Gap (5-15) MEQ/L BUN (7-17) mg/dL Creatinine (0.52-1.04) mg/dL Estimated GFR ML/MIN Glucose (74-106) mg/dL POC Glucometer (74 to 106) mg/dL Hemoglobin A1c 6.02 H (4.5-6.0) % Lactic Acid (0.4-2.0) Calcium (8.4-10.2) mg/dL Phosphorus (2.5-4.5) mg/dL Magnesium (1.6-2.3) mg/dL Total Bilirubin (0.2-1.3) mg/dL AST (14-36) U/L ALT (0-35) U/L Alkaline Phosphatase (38-126) U/L Creatine Kinase (30-135) U/L Troponin I 0.521 H* (0.000-0.034) ng/mL NT-Pro-B Natriuret Pep 81998 (<300) pg/mL Serum Total Protein (6.3-8.2) g/dL Albumin (3.5-5.0) g/dL Procalcitonin (0.030-0.080) ng/mL Urine Color (Yellow) Urine Appearance (Clear) Urine pH (4.6-8.0) Ur Specific [place] (1.005-1.030) Urine Protein (Negative) Urine Glucose (UA) (Negative) mg/dL Urine Ketones (Negative) Urine Blood (Negative) Urine Nitrite (Negative) Urine Bilirubin (Negative) Urine Urobilinogen (0.2) mg/dL Ur Leukocyte Esterase (Negative) U Hyaline Cast (Auto) (0-2) /LPF Urine Microscopic RBC (0-5) /HPF Urine Microscopic WBC (0-5) /HPF Ur Epithelial Cells (None Seen) /HPF Calcium Oxalate Crystal (None Seen) /HPF Urine Bacteria (None Seen) /HPF Urine Culture Reflexed (NO) Influenza Type A Ag NEGATIVE (NEGATIVE) Influenza Type B Ag NEGATIVE (NEGATIVE) RSV (PCR) NEGATIVE (NEGATIVE) SARS-CoV-2 (PCR) NEGATIVE (NEGATIVE) 11/08/23 11/08/23 11/08/23 Range/Units 16:07 16:27 19:27 WBC (4.0-10.5) x10^3/uL RBC (4.1-5.4) x10^6/uL Hgb (12.0-16.0) g/dL Hct (35-47) % MCV (78-100) fL MCH (26-32) pg MCHC (32-36) g/dL RDW (11.5-14.0) % Plt Count (150-450) x10^3/uL MPV (7.5-11.0) fL Segmented Neutrophils (36.0-66.0) % Band Neutrophils (0.0-2.0) % Lymphocytes (Manual) (24-44) % Monocytes (Manual) (0.0-12.0) % Metamyelocytes % Nucleated RBCs % Platelet Estimate (NORMAL) RBC Morphology Polychromasia Macrocytosis PT (9.4-12.5) SECONDS INR (0.8-3.0) Puncture Site pCO2 (35-45) mmHg pO2 (75-100) mmHg Base Excess (-2.0-2.0) O2 Saturation (94-100) g/dF ABG pH (7.35-7.45) ABG HCO3 (22-28) ABG O2 Sat (Measured) (95-100) % Nelson Test A-a Gradient a/A Ratio Hemoglobin Carboxyhemoglobin (0.0-6.9) % THgb Methemoglobin (1.4-1.5) % Potassium (3.5-5.1) Temperature C POC O2 Flow Rate % Vent Mode Vent Rate /MIN Sodium (137-145) mmol/L Chloride (98-107) mmol/L Carbon Dioxide (22-30) mmol/L Anion Gap (5-15) MEQ/L BUN (7-17) mg/dL Creatinine (0.52-1.04) mg/dL Estimated GFR ML/MIN Glucose (74-106) mg/dL POC Glucometer (74 to 106) mg/dL Hemoglobin A1c (4.5-6.0) % Lactic Acid (0.4-2.0) Calcium (8.4-10.2) mg/dL Phosphorus (2.5-4.5) mg/dL Magnesium (1.6-2.3) mg/dL Total Bilirubin (0.2-1.3) mg/dL AST (14-36) U/L ALT (0-35) U/L Alkaline Phosphatase (38-126) U/L Creatine Kinase (30-135) U/L Troponin I 0.775 H* (0.000-0.034) ng/mL NT-Pro-B Natriuret Pep (<300) pg/mL Serum Total Protein (6.3-8.2) g/dL Albumin (3.5-5.0) g/dL Procalcitonin 76.400 H* (0.030-0.080) ng/mL Urine Color Dark Yellow A (Yellow) Urine Appearance Turbid A (Clear) Urine pH 5.5 (4.6-8.0) Ur Specific [place] 1.020 (1.005-1.030) Urine Protein 300 A (Negative) Urine Glucose (UA) Negative (Negative) mg/dL Urine Ketones Trace A (Negative) Urine Blood Large A (Negative) Urine Nitrite Negative (Negative) Urine Bilirubin Small A (Negative) Urine Urobilinogen 1.0 A (0.2) mg/dL Ur Leukocyte Esterase Large A (Negative) U Hyaline Cast (Auto) 0-2 (0-2) /LPF Urine Microscopic RBC 51-100 A (0-5) /HPF Urine Microscopic WBC >100 A (0-5) /HPF Ur Epithelial Cells Moderate A (None Seen) /HPF Calcium Oxalate Crystal 0-2 A (None Seen) /HPF Urine Bacteria Many A (None Seen) /HPF Urine Culture Reflexed YES (NO) Influenza Type A Ag (NEGATIVE) Influenza Type B Ag (NEGATIVE) RSV (PCR) (NEGATIVE) SARS-CoV-2 (PCR) (NEGATIVE) 11/08/23 11/08/23 11/08/23 Range/Units 19:27 19:27 19:27 WBC 29.2 H* (4.0-10.5) x10^3/uL RBC 4.37 (4.1-5.4) x10^6/uL Hgb 13.5 (12.0-16.0) g/dL Hct 44.2 (35-47) % MCV 101.1 H (78-100) fL MCH 30.9 (26-32) pg MCHC 30.5 L (32-36) g/dL RDW 14.6 H (11.5-14.0) % Plt Count 113 L (150-450) x10^3/uL MPV 10.8 (7.5-11.0) fL Segmented Neutrophils 78 H (36.0-66.0) % Band Neutrophils 13 H (0.0-2.0) % Lymphocytes (Manual) (24-44) % Monocytes (Manual) 3 (0.0-12.0) % Metamyelocytes 6 % Nucleated RBCs 1 % Platelet Estimate DECREASED (NORMAL) RBC Morphology ABNORMAL Polychromasia Macrocytosis 1+ PT (9.4-12.5) SECONDS INR (0.8-3.0) Puncture Site pCO2 (35-45) mmHg pO2 (75-100) mmHg Base Excess (-2.0-2.0) O2 Saturation (94-100) g/dF ABG pH (7.35-7.45) ABG HCO3 (22-28) ABG O2 Sat (Measured) (95-100) % Nelson Test A-a Gradient a/A Ratio Hemoglobin Carboxyhemoglobin (0.0-6.9) % THgb Methemoglobin (1.4-1.5) % Potassium 3.6 (3.5-5.1) Temperature C POC O2 Flow Rate % Vent Mode Vent Rate /MIN Sodium 138 (137-145) mmol/L Chloride 107 (98-107) mmol/L Carbon Dioxide 19 L (22-30) mmol/L Anion Gap 15.9 H (5-15) MEQ/L BUN 28 H (7-17) mg/dL Creatinine 1.71 H (0.52-1.04) mg/dL Estimated GFR 29.6 ML/MIN Glucose 116 H (74-106) mg/dL POC Glucometer (74 to 106) mg/dL Hemoglobin A1c (4.5-6.0) % Lactic Acid (0.4-2.0) Calcium 8.2 L (8.4-10.2) mg/dL Phosphorus 5.0 H (2.5-4.5) mg/dL Magnesium 1.4 L (1.6-2.3) mg/dL Total Bilirubin 5.60 H (0.2-1.3) mg/dL AST 277 H (14-36) U/L ALT 36 H (0-35) U/L Alkaline Phosphatase 88 (38-126) U/L Creatine Kinase 70877 H (30-135) U/L Troponin I (0.000-0.034) ng/mL NT-Pro-B Natriuret Pep (<300) pg/mL Serum Total Protein 5.6 L (6.3-8.2) g/dL Albumin 3.0 L (3.5-5.0) g/dL Procalcitonin (0.030-0.080) ng/mL Urine Color (Yellow) Urine Appearance (Clear) Urine pH (4.6-8.0) Ur Specific [place] (1.005-1.030) Urine Protein (Negative) Urine Glucose (UA) (Negative) mg/dL Urine Ketones (Negative) Urine Blood (Negative) Urine Nitrite (Negative) Urine Bilirubin (Negative) Urine Urobilinogen (0.2) mg/dL Ur Leukocyte Esterase (Negative) U Hyaline Cast (Auto) (0-2) /LPF Urine Microscopic RBC (0-5) /HPF Urine Microscopic WBC (0-5) /HPF Ur Epithelial Cells (None Seen) /HPF Calcium Oxalate Crystal (None Seen) /HPF Urine Bacteria (None Seen) /HPF Urine Culture Reflexed (NO) Influenza Type A Ag (NEGATIVE) Influenza Type B Ag (NEGATIVE) RSV (PCR) (NEGATIVE) SARS-CoV-2 (PCR) (NEGATIVE) 11/08/23 11/08/23 11/09/23 Range/Units 19:30 21:03 04:20 WBC 34.1 H* (4.0-10.5) x10^3/uL RBC 4.33 (4.1-5.4) x10^6/uL Hgb 13.5 (12.0-16.0) g/dL Hct 43.4 (35-47) % MCV 100.2 H (78-100) fL MCH 31.2 (26-32) pg MCHC 31.1 L (32-36) g/dL RDW 15.1 H (11.5-14.0) % Plt Count 91 L (150-450) x10^3/uL MPV 12.0 H (7.5-11.0) fL Segmented Neutrophils (36.0-66.0) % Band Neutrophils (0.0-2.0) % Lymphocytes (Manual) (24-44) % Monocytes (Manual) (0.0-12.0) % Metamyelocytes % Nucleated RBCs % Platelet Estimate (NORMAL) RBC Morphology Polychromasia Macrocytosis PT (9.4-12.5) SECONDS INR (0.8-3.0) Puncture Site pCO2 (35-45) mmHg pO2 (75-100) mmHg Base Excess (-2.0-2.0) O2 Saturation (94-100) g/dF ABG pH (7.35-7.45) ABG HCO3 (22-28) ABG O2 Sat (Measured) (95-100) % Nelson Test A-a Gradient a/A Ratio Hemoglobin Carboxyhemoglobin (0.0-6.9) % THgb Methemoglobin (1.4-1.5) % Potassium (3.5-5.1) Temperature C POC O2 Flow Rate % Vent Mode Vent Rate /MIN Sodium (137-145) mmol/L Chloride (98-107) mmol/L Carbon Dioxide (22-30) mmol/L Anion Gap (5-15) MEQ/L BUN (7-17) mg/dL Creatinine (0.52-1.04) mg/dL Estimated GFR ML/MIN Glucose (74-106) mg/dL POC Glucometer 113 H (74 to 106) mg/dL Hemoglobin A1c (4.5-6.0) % Lactic Acid 8.6 H (0.4-2.0) Calcium (8.4-10.2) mg/dL Phosphorus (2.5-4.5) mg/dL Magnesium (1.6-2.3) mg/dL Total Bilirubin (0.2-1.3) mg/dL AST (14-36) U/L ALT (0-35) U/L Alkaline Phosphatase (38-126) U/L Creatine Kinase (30-135) U/L Troponin I (0.000-0.034) ng/mL NT-Pro-B Natriuret Pep (<300) pg/mL Serum Total Protein (6.3-8.2) g/dL Albumin (3.5-5.0) g/dL Procalcitonin (0.030-0.080) ng/mL Urine Color (Yellow) Urine Appearance (Clear) Urine pH (4.6-8.0) Ur Specific [place] (1.005-1.030) Urine Protein (Negative) Urine Glucose (UA) (Negative) mg/dL Urine Ketones (Negative) Urine Blood (Negative) Urine Nitrite (Negative) Urine Bilirubin (Negative) Urine Urobilinogen (0.2) mg/dL Ur Leukocyte Esterase (Negative) U Hyaline Cast (Auto) (0-2) /LPF Urine Microscopic RBC (0-5) /HPF Urine Microscopic WBC (0-5) /HPF Ur Epithelial Cells (None Seen) /HPF Calcium Oxalate Crystal (None Seen) /HPF Urine Bacteria (None Seen) /HPF Urine Culture Reflexed (NO) Influenza Type A Ag (NEGATIVE) Influenza Type B Ag (NEGATIVE) RSV (PCR) (NEGATIVE) SARS-CoV-2 (PCR) (NEGATIVE) 11/09/23 11/09/23 11/09/23 Range/Units 04:20 04:20 04:20 WBC (4.0-10.5) x10^3/uL RBC (4.1-5.4) x10^6/uL Hgb (12.0-16.0) g/dL Hct (35-47) % MCV (78-100) fL MCH (26-32) pg MCHC (32-36) g/dL RDW (11.5-14.0) % Plt Count (150-450) x10^3/uL MPV (7.5-11.0) fL Segmented Neutrophils (36.0-66.0) % Band Neutrophils (0.0-2.0) % Lymphocytes (Manual) (24-44) % Monocytes (Manual) (0.0-12.0) % Metamyelocytes % Nucleated RBCs % Platelet Estimate (NORMAL) RBC Morphology Polychromasia Macrocytosis PT (9.4-12.5) SECONDS INR (0.8-3.0) Puncture Site pCO2 (35-45) mmHg pO2 (75-100) mmHg Base Excess (-2.0-2.0) O2 Saturation (94-100) g/dF ABG pH (7.35-7.45) ABG HCO3 (22-28) ABG O2 Sat (Measured) (95-100) % Nelson Test A-a Gradient a/A Ratio Hemoglobin Carboxyhemoglobin (0.0-6.9) % THgb Methemoglobin (1.4-1.5) % Potassium 3.3 L (3.5-5.1) Temperature C POC O2 Flow Rate % Vent Mode Vent Rate /MIN Sodium 140 (137-145) mmol/L Chloride 108 H (98-107) mmol/L Carbon Dioxide 18 L (22-30) mmol/L Anion Gap 16.9 H (5-15) MEQ/L BUN 35 H (7-17) mg/dL Creatinine 2.38 H (0.52-1.04) mg/dL Estimated GFR 19.9 ML/MIN Glucose 133 H (74-106) mg/dL POC Glucometer (74 to 106) mg/dL Hemoglobin A1c (4.5-6.0) % Lactic Acid 6.6 H (0.4-2.0) Calcium 8.1 L (8.4-10.2) mg/dL Phosphorus (2.5-4.5) mg/dL Magnesium 1.3 L (1.6-2.3) mg/dL Total Bilirubin 6.20 H (0.2-1.3) mg/dL AST 1280 H (14-36) U/L ALT 172 H (0-35) U/L Alkaline Phosphatase 60 (38-126) U/L Creatine Kinase (30-135) U/L Troponin I 2.530 H* (0.000-0.034) ng/mL NT-Pro-B Natriuret Pep (<300) pg/mL Serum Total Protein 6.0 L (6.3-8.2) g/dL Albumin 3.2 L (3.5-5.0) g/dL Procalcitonin (0.030-0.080) ng/mL Urine Color (Yellow) Urine Appearance (Clear) Urine pH (4.6-8.0) Ur Specific [place] (1.005-1.030) Urine Protein (Negative) Urine Glucose (UA) (Negative) mg/dL Urine Ketones (Negative) Urine Blood (Negative) Urine Nitrite (Negative) Urine Bilirubin (Negative) Urine Urobilinogen (0.2) mg/dL Ur Leukocyte Esterase (Negative) U Hyaline Cast (Auto) (0-2) /LPF Urine Microscopic RBC (0-5) /HPF Urine Microscopic WBC (0-5) /HPF Ur Epithelial Cells (None Seen) /HPF Calcium Oxalate Crystal (None Seen) /HPF Urine Bacteria (None Seen) /HPF Urine Culture Reflexed (NO) Influenza Type A Ag (NEGATIVE) Influenza Type B Ag (NEGATIVE) RSV (PCR) (NEGATIVE) SARS-CoV-2 (PCR) (NEGATIVE) 11/09/23 11/09/23 11/09/23 Range/Units 07:29 07:56 08:40 WBC (4.0-10.5) x10^3/uL RBC (4.1-5.4) x10^6/uL Hgb (12.0-16.0) g/dL Hct (35-47) % MCV (78-100) fL MCH (26-32) pg MCHC (32-36) g/dL RDW (11.5-14.0) % Plt Count (150-450) x10^3/uL MPV (7.5-11.0) fL Segmented Neutrophils (36.0-66.0) % Band Neutrophils (0.0-2.0) % Lymphocytes (Manual) (24-44) % Monocytes (Manual) (0.0-12.0) % Metamyelocytes % Nucleated RBCs % Platelet Estimate (NORMAL) RBC Morphology Polychromasia Macrocytosis PT (9.4-12.5) SECONDS INR (0.8-3.0) Puncture Site LRA pCO2 36 (35-45) mmHg pO2 101 H (75-100) mmHg Base Excess -7.9 L (-2.0-2.0) O2 Saturation 96.2 (94-100) g/dF ABG pH 7.30 L (7.35-7.45) ABG HCO3 17.7 L (22-28) ABG O2 Sat (Measured) 98.4 (95-100) % Nelson Test YES A-a Gradient 211 a/A Ratio 0.32 Hemoglobin 13.5 Carboxyhemoglobin 1.3 (0.0-6.9) % THgb Methemoglobin 1.0 L (1.4-1.5) % Potassium 3.6 (3.5-5.1) Temperature 37.0 C POC O2 Flow Rate 50 % Vent Mode bipap 14/6 Vent Rate 16 /MIN Sodium (137-145) mmol/L Chloride (98-107) mmol/L Carbon Dioxide (22-30) mmol/L Anion Gap (5-15) MEQ/L BUN (7-17) mg/dL Creatinine (0.52-1.04) mg/dL Estimated GFR ML/MIN Glucose (74-106) mg/dL POC Glucometer 122 H (74 to 106) mg/dL Hemoglobin A1c (4.5-6.0) % Lactic Acid (0.4-2.0) Calcium (8.4-10.2) mg/dL Phosphorus (2.5-4.5) mg/dL Magnesium (1.6-2.3) mg/dL Total Bilirubin (0.2-1.3) mg/dL AST (14-36) U/L ALT (0-35) U/L Alkaline Phosphatase (38-126) U/L Creatine Kinase 15314 H (30-135) U/L Troponin I (0.000-0.034) ng/mL NT-Pro-B Natriuret Pep (<300) pg/mL Serum Total Protein (6.3-8.2) g/dL Albumin (3.5-5.0) g/dL Procalcitonin (0.030-0.080) ng/mL Urine Color (Yellow) Urine Appearance (Clear) Urine pH (4.6-8.0) Ur Specific [place] (1.005-1.030) Urine Protein (Negative) Urine Glucose (UA) (Negative) mg/dL Urine Ketones (Negative) Urine Blood (Negative) Urine Nitrite (Negative) Urine Bilirubin (Negative) Urine Urobilinogen (0.2) mg/dL Ur Leukocyte Esterase (Negative) U Hyaline Cast (Auto) (0-2) /LPF Urine Microscopic RBC (0-5) /HPF Urine Microscopic WBC (0-5) /HPF Ur Epithelial Cells (None Seen) /HPF Calcium Oxalate Crystal (None Seen) /HPF Urine Bacteria (None Seen) /HPF Urine Culture Reflexed (NO) Influenza Type A Ag (NEGATIVE) Influenza Type B Ag (NEGATIVE) RSV (PCR) (NEGATIVE) SARS-CoV-2 (PCR) (NEGATIVE) 11/09/23 Range/Units 11:38 WBC (4.0-10.5) x10^3/uL RBC (4.1-5.4) x10^6/uL Hgb (12.0-16.0) g/dL Hct (35-47) % MCV (78-100) fL MCH (26-32) pg MCHC (32-36) g/dL RDW (11.5-14.0) % Plt Count (150-450) x10^3/uL MPV (7.5-11.0) fL Segmented Neutrophils (36.0-66.0) % Band Neutrophils (0.0-2.0) % Lymphocytes (Manual) (24-44) % Monocytes (Manual) (0.0-12.0) % Metamyelocytes % Nucleated RBCs % Platelet Estimate (NORMAL) RBC Morphology Polychromasia Macrocytosis PT (9.4-12.5) SECONDS INR (0.8-3.0) Puncture Site pCO2 (35-45) mmHg pO2 (75-100) mmHg Base Excess (-2.0-2.0) O2 Saturation (94-100) g/dF ABG pH (7.35-7.45) ABG HCO3 (22-28) ABG O2 Sat (Measured) (95-100) % Nelson Test A-a Gradient a/A Ratio Hemoglobin Carboxyhemoglobin (0.0-6.9) % THgb Methemoglobin (1.4-1.5) % Potassium (3.5-5.1) Temperature C POC O2 Flow Rate % Vent Mode Vent Rate /MIN Sodium (137-145) mmol/L Chloride (98-107) mmol/L Carbon Dioxide (22-30) mmol/L Anion Gap (5-15) MEQ/L BUN (7-17) mg/dL Creatinine (0.52-1.04) mg/dL Estimated GFR ML/MIN Glucose (74-106) mg/dL POC Glucometer 134 H (74 to 106) mg/dL Hemoglobin A1c (4.5-6.0) % Lactic Acid (0.4-2.0) Calcium (8.4-10.2) mg/dL Phosphorus (2.5-4.5) mg/dL Magnesium (1.6-2.3) mg/dL Total Bilirubin (0.2-1.3) mg/dL AST (14-36) U/L ALT (0-35) U/L Alkaline Phosphatase (38-126) U/L Creatine Kinase (30-135) U/L Troponin I (0.000-0.034) ng/mL NT-Pro-B Natriuret Pep (<300) pg/mL Serum Total Protein (6.3-8.2) g/dL Albumin (3.5-5.0) g/dL Procalcitonin (0.030-0.080) ng/mL Urine Color (Yellow) Urine Appearance (Clear) Urine pH (4.6-8.0) Ur Specific [place] (1.005-1.030) Urine Protein (Negative) Urine Glucose (UA) (Negative) mg/dL Urine Ketones (Negative) Urine Blood (Negative) Urine Nitrite (Negative) Urine Bilirubin (Negative) Urine Urobilinogen (0.2) mg/dL Ur Leukocyte Esterase (Negative) U Hyaline Cast (Auto) (0-2) /LPF Urine Microscopic RBC (0-5) /HPF Urine Microscopic WBC (0-5) /HPF Ur Epithelial Cells (None Seen) /HPF Calcium Oxalate Crystal (None Seen) /HPF Urine Bacteria (None Seen) /HPF Urine Culture Reflexed (NO) Influenza Type A Ag (NEGATIVE) Influenza Type B Ag (NEGATIVE) RSV (PCR) (NEGATIVE) SARS-CoV-2 (PCR) (NEGATIVE) Micro Results-Entire Visit: Microbiology 11/08/23 16:27 Urine Culture - Preliminary Urine, Catheterized GRAM NEGATIVE ID AND SENSITIVITY PENDING Accuchecks Date 11/09/23 Date 11/08/23 Time 07:43 Time 21:00 - Radiology Exams Ordered Rad Exams-Entire Visit: Radiology Procedures Category Date Time Status CHEST 1 VIEW (PORTABLE) Stat Exams 11/08/23 16:49 Completed HEAD WITHOUT CONTRAST [CT] Stat Exams 11/08/23 15:21 Ordered KNEE (3 VIEWS) Stat Exams 11/08/23 16:49 Completed LIVER OR SPLEEN [US] Routine Exams 11/09/23 07:35 Completed - Procedures and Test Procedures and Tests throughout Hospitalization: Therapy Orders & Screens 11/08/23 17:02 BiPap/CPAP STAT Comment: 11/08/23 17:10 Respiratory Therapy Consult ONCE Comment: Reason For Exam: 11/08/23 19:02 Respiratory Therapy Consult ROUTINE Comment: Reason For Exam: Diagnosis: Pneumonia, Sepsis, UTI 11/08/23 20:03 Oxygen Oxymask LPM 6 lpm Comment: Diagnosis: Pneumonia, Sepsis, UTI 11/09/23 11:20 EKG STAT Comment: Diagnosis: Pneumonia, Sepsis, UTI Discharge Exam General Appearance: moderate distress, lethargy Neurologic Exam: disoriented, confusion, No motor deficits Eye Exam: PERRL, EOMI, eyes nml inspection Ears, Nose, Throat Exam: normal ENT inspection, pharynx normal, moist mucous membranes Neck Exam: normal inspection, non-tender, supple, full range of motion Respiratory Exam: respiratory distress, crackles/rales, wheezing Cardiovascular Exam: irregular Gastrointestinal/Abdomen Exam: soft, tenderness, distention, No mass Pelvic Exam: deferred Rectal Exam: deferred Back Exam: normal inspection, normal range of motion, No CVA tenderness, No vertebral tenderness Extremity Exam: normal inspection, normal range of motion Skin Exam: normal color, warm, dry Final Diagnosis/Problem List - Final Discharge Diagnosis/Problem (1) Septic shock Current Visit: Yes Status: Acute Assessment & Plan: - Lactic acid on admission 11.2- 4L NS bolus gave in ER 11/08 - Lactic acid 11/09 6.6 - WBC 34.1, bands 13 - Procal 76.400 - persistant hypotension on norepinephrine - signs of organ damage, NITA, Trop elevated, elevated AST and ALT - unable to give fluids today d/t CHF, BNP 61069 - 2:2 pneumonia, UTI - Tx to higher level of care Code(s): A41.9 - SEPSIS, UNSPECIFIED ORGANISM; R65.21 - SEVERE SEPSIS WITH SEPTIC SHOCK (2) Pneumonia Current Visit: Yes Status: Acute Assessment & Plan: - Vanocomycin, zosyn, duonebs, steriods - Bipap - ABG 11/09 - septic - BCx2 - Tele - Chest XR Portable chest demonstrates new hazy diffuse right lung infiltrates/atelectasis with tiny effusion. Remaining lungs clear. Chronic right hemidiaphragm elevation and borderline cardiomegaly. Bony thorax intact again with osteopenia and mild degenerative changes. Code(s): J18.9 - PNEUMONIA, UNSPECIFIED ORGANISM (3) UTI (urinary tract infection) Current Visit: Yes Status: Acute Assessment & Plan: - Antibiotics - UC pending- gram negative- sensitivity pending - Montiel for required immobilization for septic shock pt in ICU Code(s): N39.0 - URINARY TRACT INFECTION, SITE NOT SPECIFIED (4) Hypotension Current Visit: Yes Status: Acute Assessment & Plan: - persistent hypotension on norepinephrine - ICU - 2:2 septic shock Code(s): I95.9 - HYPOTENSION, UNSPECIFIED (5) Elevated troponin I level Current Visit: Yes Status: Acute Assessment & Plan: - 2:2 sepsis - EKG - Trop 11/08 0.775, 0.521, 1.700 - Trop 11/09 2.530 - CP developed- repeat EKG and repeat trops Code(s): R79.89 - OTHER SPECIFIED ABNORMAL FINDINGS OF BLOOD CHEMISTRY (6) Hypokalemia Current Visit: Yes Status: Acute Assessment & Plan: - K+ 3.3 replaced Code(s): E87.6 - HYPOKALEMIA (7) Hypomagnesemia Current Visit: Yes Status: Acute Assessment & Plan: - Mg+ 1.3 replaced Code(s): E83.42 - HYPOMAGNESEMIA (8) Acute kidney injury Current Visit: Yes Status: Acute Assessment & Plan: - Creat 2.38, baseline normal - IVF gave in ER - 2:2 sepsis 2:2 UTI and pneumonia Code(s): N17.9 - ACUTE KIDNEY FAILURE, UNSPECIFIED (9) Diabetes type 2, controlled Current Visit: Yes Status: Acute Assessment & Plan: - A1C 6.02 - Humalog s/s Code(s): E11.9 - TYPE 2 DIABETES MELLITUS WITHOUT COMPLICATIONS (10) Elevated LFTs Current Visit: Yes Status: Acute Assessment & Plan: - AST 1280, ALT 172 - 2:2 sepsis - Liver US: Impression: Limited right upper quadrant abdominal sonogram with incidental hepatomegaly. CT may yield further information if there remains clinical concern Code(s): R79.89 - OTHER SPECIFIED ABNORMAL FINDINGS OF BLOOD CHEMISTRY (11) Loss of consciousness Current Visit: Yes Status: Acute Assessment & Plan: - CT head pending - found down at home - lethargic but will respond to commands Code(s): R40.20 - UNSPECIFIED COMA (12) Right knee pain Current Visit: Yes Status: Acute Assessment & Plan: Right knee XR: 3 portable views right knee demonstrates mild anterior soft tissue swelling, osteopenia, total knee arthroplasty with intact articulation/prosthesis, and small posterior fabella. No other bony, articular, or soft tissue abnormalities. Code(s): M25.561 - PAIN IN RIGHT KNEE (13) CHF (congestive heart failure) Current Visit: Yes Status: Acute Assessment & Plan: - BNP 89862 - On noepinephrine gtt for hypotension currenlty - Echo 05/09/21- per old records IMPRESSION: 1) NO REGIONAL WALL MOTION ABNORMALITY. ESTIMATED GLOBAL LEFT VENTRICULAR EJECTION FRACTION OF AROUND 60%. 2) TRACE MITRAL REGURGITATION. 3) TRACE TRICUSPID REGURGITATION. RIGHT VENTRICULAR SYSTOLIC PRESSURE OF 33 MM OF MERCURY. 4) LEFT VENTRICULAR HYPERTROPHY. 5) LEFT ATRIAL ENLARGEMENT. 6) TRIVIAL PERICARDIAL EFFUSION. 7) LEFT VENTRICULAR DIASTOLIC DYSFUNCTION. The left ventricle is visualized and demonstrated adequate motion of all the segments. Estimated global left ventricular ejection fraction is 60%. There is mild left ventricular hypertrophy. The mitral valve is seen and this opens adequately. There is trace mitral regurgitation. The left atrium is mildly en larged. The tissue Doppler study of the lateral mitral annulus is suggestive of left ventricular diastolic dysfunction. The aortic valve opens adequately. There is no significant gradient across the left ventricular outflow tract. The right side chambers are normal. There is trace tricuspid regurgitation. The right ventricular systolic pressure of 33 mm of Mercury. There is also trivial pericardial effusion and prominent epicardial fat. Code(s): I50.9 - HEART FAILURE, UNSPECIFIED (14) Thrombocytopenia Current Visit: Yes Status: Acute Assessment & Plan: -2:2 sepsis - platelets 91 - Discharge Discharge Date: 11/09/23 ([facility]) Disposition: XFER OTHER Condition: Critical Prescriptions: Continue Metformin HCl 500 mg [Glucophage 500 MG] 500 mg PO 1700 Fenofibrate,Micronized 145 mg* [Tricor 145 MG] 145 mg PO DAILY Fluticasone/Salmeterol [Advair 250-50 Diskus] 1 each IH BID Lorazepam 1 mg [Ativan 1 MG] 1 mg PO HS Escitalopram Oxalate [Lexapro] 20 mg PO DAILY Albuterol Common Canister [Ventolin Common Canister] 2 puff IH Q4H PRN PRN PRN Reason: Shortness Of Breath/Wheezing Vit C/E/Zn/Coppr/Lutein/Zeaxan [Preservision Areds 2 Softgel] 1 cap PO BID Fluticasone/Salmeterol 115/21 [Advair Hfa 115/21 Common canister*] 2 puff IH BIDRT Apixaban [Eliquis 2.5 mg Tablet] 5 mg PO BID #60 tablet Calcium Carbonate/Vitamin D3 [Calcium 500 + Vit D 200 Tablet] 1 each PO BID #0 Metoprolol Succinate 50 mg [Toprol Xl 50 MG] 50 mg PO DAILY Amlodipine Besylate 5 mg [Norvasc 5 mg] 2.5 mg PO 1600 Follow up with: BING MURPHY MD [Primary Care Provider] -
[2023-11-09] MEDS ORDERED: Sodium Chloride 0.9% 1000 ML 1,000 ML ONE (12:56)
[2023-11-09] MEDS: Sodium Chloride 0.9% 1000 ML 1,000 ML IV SCH (13:00)
[2023-11-09 14:17] VITALS: BP 90/42; PULSE 70; RESP 32; O2SAT 94
[2023-11-09] MEDS ORDERED: PIPERACILLIN/TAZOBACTAM 4.5 GM in Sodium Chloride 100ML MINI-BAG PLUS 100 ML IV SCH (22:00)
[2023-11-10] MEDS ORDERED: VANCOMYCIN 1 GRAM/200 ML BAG 1 GM/200 ML PIGGYBACK IV SCH (09:00)
== END 2023-11-09 13:26 | DRG 871 ==
LOC: ED 15:17 → ICU 17:25 → OBSVTOIN 17:25
PROVIDERS: ADMIT Internal Medicine; ATTEND Internal Medicine
DX: A41.9 Sepsis, unspecified organism (principal); J13 Pneumonia due to Streptococcus pneumoniae; R65.21 Severe sepsis with septic shock; J18.9 Pneumonia, unspecified organism; N39.0 Urinary tract infection, site not specified; N17.9 Acute kidney failure, unspecified; N10 Acute pyelonephritis; I95.9 Hypotension, unspecified; R79.89 Other specified abnormal findings of blood chemistry; E87.6 Hypokalemia; E83.42 Hypomagnesemia; E11.9 Type 2 diabetes mellitus without complications; M25.561 Pain in right knee; I11.0 Hypertensive heart disease with heart failure; I50.9 Heart failure, unspecified; D69.6 Thrombocytopenia, unspecified; W19.XXXA Unspecified fall, initial encounter; I48.91 Unspecified atrial fibrillation; J44.9 Chronic obstructive pulmonary disease, unspecified; E78.5 Hyperlipidemia, unspecified; Z79.899 Other long term (current) drug therapy; Z20.828 Contact with and (suspected) exposure to other viral communicable diseases; Z79.01 Long term (current) use of anticoagulants
CPT/HCPCS: 0241U; 36000; 36415; 36600; 51702; 71045; 73562; 76705; 80053; 81001; 82375; 82550; 82803; 82947; 83036; 83605; 83735; 83880; 84100; 84145; 84484; 85025; 85027; 85610; 87040; 87086; 93005; 94002; 94003; 94640; 99285; 99291; Q3014; 87077; 87186; J2060; J2543; J2920; J3475; J3480; A9270-GY; J3370